=== PATIENT | female | born 1945 | race Caucasian/White ===

== ENCOUNTER 2016-11-22 19:51 | Inpatient (IN) ==
--- NOTE | 2016-11-22 20:17 | Emergency Department Report ---
Lower Extremity Injury HPI - General Stated Complaint: Sore toe Time Seen by Provider: 11/22/16 20:07 Source: patient Mode of arrival: ambulatory Limitations: no limitations - History of Present Illness HPI Narrative: 71yo woman presents to the ER for evaluation of her toe. Pt has had a wound on her right, second digit for over a week. Has seen at least two physicians for this, but was told to put cream on it and it would get better. Pt has an open, draining sore on the end of the toe. Has comorbid CAD and DM. Onset (ago): day(s) Injury: Right: toes Place: home Severity: severe Severity scale (1-10): 8 Relieving factors: nothing Exacerbating factors: weight bearing, movement Other symptoms: other (Chills) Treatments prior to arrival: bandage - Related Data Home Medications Medication Instructions Recorded Confirmed Allopurinol 100 mg PO DAILY #0 10/17/08 11/22/16 Furosemide [Lasix] 40 mg PO DAILY #0 10/17/08 11/22/16 Metoprolol Succinate 25 mg PO DAILY #0 10/17/08 11/22/16 Omeprazole 20 mg PO DAILY #0 10/17/08 11/22/16 Potassium Chloride [Klor-Con M20] 20 meq PO BID #0 10/17/08 11/22/16 Quetiapine Fumarate [Seroquel] 100 mg PO HS #0 10/17/08 11/22/16 Ropinirole [Requip] 1 mg PO BID #0 10/17/08 11/22/16 Atorvastatin Calcium [Lipitor] 20 mg PO HS #0 09/03/10 11/22/16 Gabapentin [Neurontin] 300 mg PO TID #0 09/03/10 11/22/16 Hydrocodone/Acetaminophen 1 - 2 tab PO Q8HR PRN #0 10/25/15 11/22/16 [Hydrocodon-Acetaminophn 10-325] Warfarin Sodium 2 mg PO DAILY #90 tab 03/24/16 11/22/16 Tizanidine HCl 2 mg PO DAILY #0 03/25/16 11/22/16 Albuterol Neb (0.083%) [Proventil 2.5 mg AEROSOL Q6HR PRN 11/22/16 11/22/16 Neb (0.083%)] Desvenlafaxine Sr [Pristiq] 50 mg PO DAILY 11/22/16 11/22/16 Insulin Aspart [NovoLOG] 12 unit SQ TIDWM 11/22/16 11/22/16 Previous Rx's Medication Instructions Recorded Insulin Detemir [Levemir] 25 unit SQ HS #30 11/01/15 Allergies Allergy/AdvReac Type Severity Reaction Status Date / Time codeine Allergy Unknown RASH Verified 11/22/16 20:29 prochlorperazine Allergy Unknown Verified 11/22/16 20:29 Sulfa (Sulfonamide Allergy Unknown Verified 11/22/16 20:29 Antibiotics) Review of Systems All systems: reviewed and negative except as stated Musculoskeletal: Reports: as per HPI Integumentary: Reports: as per HPI, lesions, swelling, wounds PFSH Medical History Updates: COPD. Gout. HL. Depr. CHF. Diabetic peripheral neuropathy. DM. Tinea cruris. GERD. Hypokalemia. Insomnia. Arrhythmia. RLS Physical Exam - Limitations Limitations: no limitations - General General appearance: alert, in no apparent distress, obese - Normal Exams: Head:: Normocephalic without trauma Eyes:: Pupils are PERRLA w/ EOMI, No scleral icterus, irritation, or foreign bodies noted ENMT:: No facial trauma, nasal exudates, pharyngeal erythema, or exudates are noted Neck:: Full range of motion, without adenopathy Chest/Respirations:: Clear all miranda, with good airflow, and symmetry bilaterally Abdomen:: Bowel sounds positive, soft, non-tender, non-distended, no hepatosplenomegaly, masses or bruits noted Lymphatic:: No lymphadenopathy, or lymphedema noted Musculoskeletal:: No tenderness, or deformity noted, good range of motion, all extremities Neurological:: Patient is alert, and oriented, cranial nerves, motor/sensory/ cerebellar, exams w/o gross deficits, to observation Psychiatric:: Patient exhibits, appropriate attention, emotion and affect - Skin Skin exam: Present: warm, dry, pallor (Ulcerated, draining, mottled, pallorous skin of 2nd digit on right up to MTP joint.), mottled. Absent: rash Course - Consultations Consultation #1: Douglas Telemed: Time: 22:00 Vital Signs Temperature 99.6 F 11/22/16 19:58 Pulse Rate 101 H 11/22/16 19:58 Respiratory Rate 22 11/22/16 19:58 Blood Pressure 180/77 H 11/22/16 19:58 Pulse Oximetry 98 11/22/16 19:58 Temperature 99.6 F 11/22/16 19:58 Pulse Rate 101 H 11/22/16 19:58 Respiratory Rate 22 11/22/16 19:58 Blood Pressure 180/77 H 11/22/16 19:58 Pulse Oximetry 98 11/22/16 19:58 Extremity Injury, Lower - Differential Diagnosis Likely: fracture of toe (Gangrene, Sepsis, Diabetic ulcer) - Medical Records Attestation: I reviewed the patient's medical records. - Lab Data Attestation: I reviewed the patient's lab results. Result diagrams: 11/22/16 20:31 11/22/16 20:31 Lab Results 11/22/16 11/22/16 11/22/16 Range/Units 20:31 20:31 20:31 WBC 14.1 H (4.5-11.0) T/MM3 RBC 4.38 (4.00-5.20) M/MM3 Hgb 11.4 L (12-16) GM/DL Hct 38.1 (36-46) % MCV 87.0 (80-100) UM3 MCH 26.0 (26-34) UUG MCHC 29.9 L (31-37) GM/DL RDW Std Deviation 43.9 (36.9-50.2) FL Plt Count 210 (130-400) T/MM3 MPV 10.6 (9.4-12.4) UM3 Immature Gran % (Auto) Not performed Neut % (Auto) Not performed Lymph % (Auto) Not performed Crook % (Auto) Not performed Eos % (Auto) Not performed Baso % (Auto) Not performed Neut # Not performed Lymph # Not performed Crook # Not performed Eos # Not performed Baso # Not performed Abs Immat Gran (auto) Not performed Neutrophils % (Manual) 85.0 H (33-66) % Lymphocytes % (Manual) 11.0 L (23-45) % Monocytes % (Manual) 3.0 (0-9.0) % Eosinophils % (Manual) 1.0 (0-4) % Neutrophils # (Manual) 12.0 H (1.8-7.7) T/MM3 Lymphocytes # (Manual) 1.6 (1-4.8) T/MM3 Monocytes # (Manual) 0.4 (0-0.8) T/MM3 Eosinophils # (Manual) 0.1 (0-0.5) T/MM3 RBC Morph Comment Normal Turbidity < 20 (0-20) Sodium 141 (134-144) MEQ/L Potassium 4.4 (3.6-5) MEQ/L Chloride 101 (98-107) MEQ/L Carbon Dioxide 26 (22-30) MEQ/L Anion Gap 14 (5-15) MEQ/L BUN 20.0 H (7-17) MG/DL Creatinine 1.5 H (0.7-1.2) MG/DL GFR Calculation 34 BUN/Creatinine Ratio 13 (6-26) RATIO Glucose 202 H (65-110) MG/DL Calculated Osmolality 280 (261-280) MOSM/KG Calcium 9.8 (8.4-10.2) MG/DL Icterus Index < 2 (0-7) Plasma Lactate 2.1 (0.6-2.2) MMOL/L Procalcitonin NG/ML Specimen Hemolysis < 15 (0-25) // Range/Units 20:31 WBC (4.5-11.0) T/MM3 RBC (4.00-5.20) M/MM3 Hgb (12-16) GM/DL Hct (36-46) % MCV (80-100) UM3 MCH (26-34) UUG MCHC (31-37) GM/DL RDW Std Deviation (36.9-50.2) FL Plt Count (130-400) T/MM3 MPV (9.4-12.4) UM3 Immature Gran % (Auto) Neut % (Auto) Lymph % (Auto) Crook % (Auto) Eos % (Auto) Baso % (Auto) Neut # Lymph # Crook # Eos # Baso # Abs Immat Gran (auto) Neutrophils % (Manual) (33-66) % Lymphocytes % (Manual) (23-45) % Monocytes % (Manual) (0-9.0) % Eosinophils % (Manual) (0-4) % Neutrophils # (Manual) (1.8-7.7) T/MM3 Lymphocytes # (Manual) (1-4.8) T/MM3 Monocytes # (Manual) (0-0.8) T/MM3 Eosinophils # (Manual) (0-0.5) T/MM3 RBC Morph Comment Turbidity (0-20) Sodium (134-144) MEQ/L Potassium (3.6-5) MEQ/L Chloride (98-107) MEQ/L Carbon Dioxide (22-30) MEQ/L Anion Gap (5-15) MEQ/L BUN (7-17) MG/DL Creatinine (0.7-1.2) MG/DL GFR Calculation BUN/Creatinine Ratio (6-26) RATIO Glucose (65-110) MG/DL Calculated Osmolality (261-280) MOSM/KG Calcium (8.4-10.2) MG/DL Icterus Index (0-7) Plasma Lactate (0.6-2.2) MMOL/L Procalcitonin 0.07 NG/ML Specimen Hemolysis (0-25) - Radiology Data Attestation: I reviewed the patient's radiology results. Foot: Cortical erosion of distal phalanx on 2nd digit. Significant soft-tissue swelling. Disposition Clinical Impression: Osteomyelitis Qualifiers: Osteomyelitis type: unspecified type Osteomyelitis location: foot Laterality: right Qualified Code(s): M86.9 - Osteomyelitis, unspecified [place]: 02 [place] [facility] Prescriptions: No Action Furosemide [Lasix] 40 mg PO DAILY #0 Quetiapine Fumarate [Seroquel] 100 mg PO HS #0 Allopurinol 100 mg PO DAILY #0 Omeprazole 20 mg PO DAILY #0 Potassium Chloride [Klor-Con M20] 20 meq PO BID #0 Atorvastatin Calcium [Lipitor] 20 mg PO HS #0 Gabapentin [Neurontin] 300 mg PO TID #0 Hydrocodone/Acetaminophen [Hydrocodon-Acetaminophn 10-325] 1 - 2 tab PO Q8HR PRN #0 PRN Reason: Pain Insulin Detemir [Levemir] 25 unit SQ HS #30 Tizanidine HCl 2 mg PO DAILY #0 Desvenlafaxine Sr [Pristiq] 50 mg PO DAILY Albuterol Neb (0.083%) [Proventil Neb (0.083%)] 2.5 mg AEROSOL Q6HR PRN PRN Reason: Shortness Of Air Insulin Aspart [NovoLOG] 12 unit SQ TIDWM Ropinirole [Requip] 1 mg PO BID #0 Metoprolol Succinate 25 mg PO DAILY #0 Warfarin Sodium 2 mg PO DAILY #90 tab Referrals: Oskar Rosenthal MD [Family Provider] - Time of Disposition: 22:06 - Seen By: physician
[2016-11-22] MEDS ORDERED: CEFTRIAXONE (ER USE ONLY) 1 GM in NS 100 ML IV ONE (20:21)
[2016-11-22] MEDS: SALINE FLUSH 10ml SYRINGE IVF PRN (20:38)
[2016-11-22] MEDS ORDERED: PIPERACILLIN/TAZOBACTAM 3.375 GM in NS 100 ML IV SCH (22:30)
--- NOTE | 2016-11-22 23:22 | History & Physical Report ---
History of Present Illness Date: 11/22/16 Chief complaint: right foot pain and swelling HPI: This is a 71 y/o female with a history of DM2 who has chronic edema to both of her legs/feet. The pateint had increased swelling to her right foot and specifically her right 2nd toe. She saw a stores despatch hand 2 weeks ago that recommended a "cream"' which she couldn't afford. [facility] Medical History Updates: COPD. Gout. HL. Depr. CHF. Diabetic peripheral neuropathy. DM. Tinea cruris. GERD. Hypokalemia. Insomnia. Arrhythmia. RLS Medications Home Medications Medication Instructions Recorded Confirmed Type Allopurinol 100 mg PO DAILY #0 10/17/08 11/22/16 History Furosemide [Lasix] 40 mg PO DAILY #0 10/17/08 11/22/16 History Metoprolol Succinate 25 mg PO DAILY #0 10/17/08 11/22/16 History Omeprazole 20 mg PO DAILY #0 10/17/08 11/22/16 History Potassium Chloride [Klor-Con M20] 20 meq PO BID #0 10/17/08 11/22/16 History Quetiapine Fumarate [Seroquel] 100 mg PO HS #0 10/17/08 11/22/16 History Ropinirole [Requip] 1 mg PO BID #0 10/17/08 11/22/16 History Atorvastatin Calcium [Lipitor] 20 mg PO HS #0 09/03/10 11/22/16 History Gabapentin [Neurontin] 300 mg PO TID #0 09/03/10 11/22/16 History Hydrocodone/Acetaminophen 1 - 2 tab PO Q8HR PRN #0 10/25/15 11/22/16 History [Hydrocodon-Acetaminophn 10-325] Warfarin Sodium 2 mg PO DAILY #90 tab 03/24/16 11/22/16 History Tizanidine HCl 2 mg PO DAILY #0 03/25/16 11/22/16 History Albuterol Neb (0.083%) [Proventil 2.5 mg AEROSOL Q6HR PRN 11/22/16 11/22/16 History Neb (0.083%)] Desvenlafaxine Sr [Pristiq] 50 mg PO DAILY 11/22/16 11/22/16 History Insulin Aspart [NovoLOG] 12 unit SQ TIDWM 11/22/16 11/22/16 History Allergies Allergy/AdvReac Type Severity Reaction Status Date / Time codeine Allergy Unknown RASH Verified 11/22/16 20:29 prochlorperazine Allergy Unknown Verified 11/22/16 20:29 Sulfa (Sulfonamide Allergy Unknown Verified 11/22/16 20:29 Antibiotics) Exam Vital Signs: Temperature 99.6 F 11/22/16 19:58 Pulse Rate 101 H 11/22/16 19:58 Respiratory Rate 22 11/22/16 19:58 Blood Pressure 180/77 H 11/22/16 19:58 Pulse Oximetry 98 11/22/16 19:58 Height: 1.7 m Weight: 128.8 kg Results - Labs CBC & Chem 7: 11/22/16 20:31 11/22/16 20:31 Hospital Course Summary Disclaimer: The visit summary below is not to be considered part of the above Progress Note.
[2016-11-22] MEDS ORDERED: NS FLUSH BAG 500ml IV PRN (23:26)
[2016-11-22] MEDS ORDERED: HYDROCODONE/APAP 5mg/325mg TABLET PO PRN (23:26)
[2016-11-22] MEDS ORDERED: ONDANSETRON 4 MG/2 ML INJECTION IVP PRN (23:26)
--- NOTE | 2016-11-22 23:30 | History & Physical Report ---
<Braden Carrera Alessandro - Last Filed: 11/22/16 23:27> History of Present Illness Date: 11/22/16 Chief complaint: right foot pain HPI: This is a 71 y/o female with a history of DM2 who has chronic edema to both of her legs/feet. The patient had increased swelling to her right foot and specifically her right 2nd toe. She saw a inside sales territory manager 2 weeks ago that recommended a "cream"' which she couldn't afford. Over the past 2 days increased pain and swelling to this foot and specifically the 2nd toe. The patient developed fever, chills and sweats with nausea and vomiting. The patient presents to the ED today and xray and exam would support probable osteomyelitis of this toe. The pateint meets sepsis criteria. The patient will be admitted for a polymicrobial infection of this toe and probable surgical debridement and most likely amputation of toe Review of Systems Review of systems: no headache, no change in vision, no neck or jaw pain, no chest pain, occasional cough, no congestion, no heart palpations, mild nausea and occasional emesis, no abdomen pain, no change in BM, no urinary symptoms, chronic swelling of both lower legs but worse right sided as noted above no focal neuro complaints. 12 point ROS otherwise negative. PFSH Medical History Updates: COPD. Gout. HL. Depr. CHF. Diabetic peripheral neuropathy. DM. Tinea cruris. GERD. Hypokalemia. Insomnia. Arrhythmia. RLS Surgical History: cholecystectomy, tubal ligation, lumpectomy, herniorrhaghy Family History: unkown as adopted - Social History Smoking status: Former smoker Substance use type: does not use Alcohol intake frequency: does not drink Current occupational status: disabled Current residence: Apartment/Private Home Medications Home Medications Medication Instructions Recorded Confirmed Type Allopurinol 100 mg PO DAILY #0 10/17/08 11/22/16 History Furosemide [Lasix] 40 mg PO DAILY #0 10/17/08 11/22/16 History Metoprolol Succinate 25 mg PO DAILY #0 10/17/08 11/22/16 History Omeprazole 20 mg PO DAILY #0 10/17/08 11/22/16 History Potassium Chloride [Klor-Con M20] 20 meq PO BID #0 10/17/08 11/22/16 History Quetiapine Fumarate [Seroquel] 100 mg PO HS #0 10/17/08 11/22/16 History Ropinirole [Requip] 1 mg PO BID #0 10/17/08 11/22/16 History Atorvastatin Calcium [Lipitor] 20 mg PO HS #0 09/03/10 11/22/16 History Gabapentin [Neurontin] 300 mg PO TID #0 09/03/10 11/22/16 History Hydrocodone/Acetaminophen 1 - 2 tab PO Q8HR PRN #0 10/25/15 11/22/16 History [Hydrocodon-Acetaminophn 10-325] Warfarin Sodium 2 mg PO DAILY #90 tab 03/24/16 11/22/16 History Tizanidine HCl 2 mg PO DAILY #0 03/25/16 11/22/16 History Albuterol Neb (0.083%) [Proventil 2.5 mg AEROSOL Q6HR PRN 11/22/16 11/22/16 History Neb (0.083%)] Desvenlafaxine Sr [Pristiq] 50 mg PO DAILY 11/22/16 11/22/16 History Insulin Aspart [NovoLOG] 12 unit SQ TIDWM 11/22/16 11/22/16 History Allergies Allergy/AdvReac Type Severity Reaction Status Date / Time codeine Allergy Unknown RASH Verified 11/22/16 20:29 prochlorperazine Allergy Unknown Verified 11/22/16 20:29 Sulfa (Sulfonamide Allergy Unknown Verified 11/22/16 20:29 Antibiotics) Exam Vital Signs: Temperature 99.6 F 11/22/16 19:58 Pulse Rate 101 H 11/22/16 19:58 Respiratory Rate 22 11/22/16 19:58 Blood Pressure 180/77 H 11/22/16 19:58 Pulse Oximetry 98 11/22/16 19:58 Telemetry Rhythm: Sinus Rhythm Height: 1.7 m Weight: 128.8 kg Comments: well developed, well nourished female obese appears mild distress - Constitutional Present: mild distress, morbidly obese, cooperative - Routine HEENT Exam Head: Present: normocephalic, atraumatic, cushingoid faces Eye: Present: EOMI, conjunctivae pink ENT: Present: mucous membranes dry - Routine Neck Exam Present: supple, full ROM - Routine Respiratory Exam Present: CTA bilaterally - Routine Cardiovascular Exam Present: RRR - Routine Abdominal Exam Present: soft, tenderness - Routine Back/Spine/Pelvis Exam Back/Spine: Present: full ROM - Routine Skin Exam Present: intact Comments: right second toe has ecchymosis to tip with escar and sig erythema prpoximal to this, rom limited due to swelling, mild tender, - Routine Neurological Exam Present: alert, oriented X3 - Routine Psychiatric Exam Present: normal affect Results - Labs CBC & Chem 7: 11/22/16 20:31 11/22/16 20:31 Labs: reviewd and consistent with ongoing infecton - Imaging and Cardiology foot Additional comments: demineralization and probable osteo of 2nd toe distal phalynx Assessment and Plan (1) Osteomyelitis of toe of right foot Current visit: Yes Status: Acute 11/22/16 23:35 npo, surgical consult in am. zosyn, and henryo, pharmacy to dose, secondary to diabetic foot ulcer. (2) Sepsis Current visit: Yes Status: Acute 11/22/16 23:36 tachycardia, fever, leukocytosis, fluids, not severe sepsis, repeat sepsis markers in the am (3) CKD (chronic kidney disease) stage 3, GFR 30-59 ml/min Current visit: Yes Status: Acute 11/22/16 23:37 with diabetes must be careful regarding renal toxic meds and hydration status. pharmacy to assist with dosing, ivf, repeat bmp in am. (4) DM type 2 (diabetes mellitus, type 2) Current visit: Yes Status: Acute 11/22/16 23:37 correctional plan, hold all other agents as npo (5) HTN (hypertension) Current visit: Yes Status: Acute 11/22/16 23:38 hold agents until confirmed that blood pressure adequately tolerate infected state, hold diuretics anyway DVT Prophylaxis: SCD's Resuscitation Status: Full Code Hospital Course Summary Disclaimer: The visit summary below is not to be considered part of the above Progress Note. <Romi Parks - Last Filed: 11/23/16 11:04> History of Present Illness Date: 11/23/16 [facility] Patient Stated Medical History Cerebrovascular Accident Yes: 2006? Syncope Yes Dental Problems Yes Hypertension Yes Asthma Yes Chronic Obstructive Pulmonary Yes Disease (COPD) Pulmonary Embolism Yes Sleep Apnea Yes Diabetes Mellitus Type 2 Yes Gastroesophageal Reflux Yes Disease Hepatitis Yes: C Hx Incontinence Yes Hx Renal Disease Yes: stage 3 Clotting Problems Yes Osteoarthritis Yes Cellulitis Yes Depression Yes Exam Vital Signs: Temperature 97.7 F 11/23/16 07:32 Pulse Rate 72 11/23/16 09:26 Respiratory Rate 20 11/23/16 08:09 Blood Pressure 113/48 11/23/16 09:26 Pulse Oximetry 91 11/23/16 08:09 Oxygen Delivery Method Room Air Height: 1.7 m Weight: 130.6 kg Results - Labs CBC & Chem 7: 11/23/16 01:45 11/23/16 01:45 Microbiology Results: Microbiology 11/23/16 08:04 Toe,Second Right Superficial Wound Culture - Preliminary Culture Initiated - Results Pending Assessment and Plan (1) Osteomyelitis of toe of right foot Current visit: Yes Status: Acute (2) Severe sepsis Current visit: Yes Status: Acute (3) CKD (chronic kidney disease) stage 3, GFR 30-59 ml/min Current visit: Yes Status: Acute (4) DM type 2 (diabetes mellitus, type 2) Current visit: Yes Status: Acute (5) HTN (hypertension) Current visit: Yes Status: Acute Assessment and Plan: Dr. Carrera's note reviewed. Mrs. Flores interviewed and examined. CC: Foot pain, fever/chills HPI: Mrs. Flores is 71-year-old diabetic female with ulceration on the bottom/ tip of her second toes of both feet for several months. She been seeing a inside sales territory manager for some time and reports that the left foot has improved but the right foot has progressively worsened with increased swelling over the past couple of weeks, increasing redness, and throbbing pain. Podiatry recommended that she use a cream on her toe 2 weeks ago but she couldn't afford the medication. Over the past 2 days the patient developed significant increase in pain and swelling in this second right toe followed by onset of fever, chills, and sweats on the date of admission. There was accompanied nausea and vomiting. She presented to the emergency room her temperature was elevated at 99.6 and increased 100.6 shortly after arrival. White count was 14.1 and x-rays compatible with osteomyelitis involving the proximal phalanx of the right second toe. Broad-spectrum antibiotics were initiated and the patient was admitted for further management and surgical consultation. PH/SH/FH: agree with that recorded above by Dr. Carrera; in addition patient has a history of breast cancer and has had bilateral mastectomies; check pulmonary emboli in October 2015, history hepatitis C successfully treated/cured, CK D-3, fibromyalgia, ventral hernia repair, bilateral total knee arthroplasties, and left shoulder/clavicle surgery in 2010. Cardiac catheterization in March 2016 demonstrated ejection fraction of 65% and single vessel LAD disease with 30 % stenosis. The patient's primary care physician is Dr. Rosenthal, she is a full code, and has 3 children who should act as alternate decision makers if needed. ROS: 10 point review as previously described by Dr. Carrera with patient adding that she's had several falls over the past year due to lightheadedness when she turns suddenly. EXAM: General-MAXIMUM TEMPERATURE 101, HR 72-105, RR 14-24, BP 113/48. NAD, alert, fluent speech HEENT-PERRL, EOMI without nystagmus, conjunctiva clear, sclera anicteric, conjugate gaze, facial structures symmetric, oropharynx clear, neck supple and without adenopathy Lungs-respirations nonlabored, good airflow, breath sounds clear Cardiac-regular rhythm with occasional ectopic beats, S1-S2 Abd-obese, soft, nontender, bowel sounds present Ext-+2 edema RLE, +1 edema LLE Musculoskeletal-marked edema second phalanx right foot with discoloration of the distal toe consistent with necrotic tissue, 6-7 mm ulceration present at the distal aspect with foul-smelling blood-tinged drainage. Skin-without generalized rash, stasis changes present bilateral lower extremities Neuro-sensation is grossly intact bilateral lower extremities and upper extremities, motor tone/power normal, no tremor, cranial nerves 3-12 intact Psych-calm, cooperative DATA: White count 14.8 with 87 neutrophils, 2 bands this morning, hemoglobin 9.8, creatinine 1.5 (baseline 0.8-1.0), lactic acid initially 2.1 dropping to 0.8, procalcitonin 0.07 X-ray of the right foot reviewed by myself demonstrating changes consistent with osteomyelitis distal phalanx right second toe and a subacute fracture at the proximal phalanx fifth toe. A/P: Osteomyelitis right second toe Cellulitis right toe/foot, possible abscess right second toe Severe sepsis Diabetes mellitus, type II, with diabetic neuropathy and nephropathy, chronic insulin use. Normocytic anemia CKD-stage III PE 09/25 History of breast cancer Hypertension Restless leg syndrome Continue broad-spectrum antibiotics with vancomycin and Zosyn due to diabetic foot infection with osteomyelitis. Surgical consultation initiated, call placed to Dr. Morales regarding surgical plans. High likelihood that second toe will require amputation. Baseline CRP to be obtained in the morning, A1c to be rechecked-last A1c 8.2 in June. Continue basal insulin with corrective scale insulin while nothing by mouth. Continue IV/PO narcotics for pain and home meds as appropriate. Anticipate greater than 2 days hospitalization due to need for IV antibiotics and supportive care. Patient will return to the care of Dr. Galo flowers. Outpatient records reviewed, x-rays reviewed, laboratory data reviewed and compared to prior hospitalizations. Sepsis Assessment - Evaluation Possible source: bone/joint, skin/soft tissue Confirmed Suspected Infection: Yes SIRS Criteria: temperature > or equal to 100.4, pulse > or equal to 90 beats/ minute, WBC > or equal to 12,000, RR > or equal to 20 Severe Sepsis: SpO2 <90% or ventilated, lactate > or equal to 2.0 mg/dl Hospital Course Summary Disclaimer: The visit summary below is not to be considered part of the above Progress Note. Hospital Course: 11/23/16 11:03 Patient admitted with severe sepsis and osteomyelitis of the second right toe with cellulitis. Continue broad-spectrum antibiotics with vancomycin and Zosyn due to diabetic foot infection. Surgical consultation initiated, call placed to Dr. Morales regarding surgical plans. High likelihood that second toe will require amputation. Baseline CRP to be obtained in the morning, A1c to be rechecked-last A1c 8.2 in June. Continue basal insulin with corrective scale insulin while nothing by mouth. Continue IV/PO narcotics for pain and home meds as appropriate. Anticipate greater than 2 days hospitalization due to need for IV antibiotics and supportive care. Patient will return to care of Dr. Galo flowers.
[2016-11-23] MEDS ORDERED: FALL RISK - PHARMACY CONSULT MC PRN (00:01)
[2016-11-23] MEDS: PIPERACILLIN/TAZOBACTAM 3.375 GM in NS 100 ML IV SCH ×3 (05:19→18:08)
[2016-11-23] MEDS: INSULIN REGULAR, HUMAN 100 UNIT/ML INJECTION SQ PRN ×2 (05:28→13:52)
--- NOTE | 2016-11-23 07:57 | General Surgery Consult Note ---
Consult date: 11/23/16 Attending Physician: Romi Parks MD Reason for consult: wound care (osteomyelitis of right 2nd toe) History of present illness: Per Dr. Morales [facility] Patient Stated Medical History Cerebrovascular Accident Yes: 2006? Syncope Yes Hypertension Yes Asthma Yes Chronic Obstructive Pulmonary Yes Disease (COPD) HI 2nd to PE October 2015 Pulmonary Embolism 2015 Yes Sleep Apnea Yes Diabetes Mellitus Type 2 Yes Gastroesophageal Reflux Yes Disease Hepatitis C Yes: C Hx Incontinence Yes Hx Renal Disease Yes: stage 3 Osteoarthritis Yes Cellulitis Yes Depression Yes Fibromyalgia Restless less syndrome Breast cancer Migraines Neuropathy Morbid Obesity Chronic venous insufficiency Gout Dental Problems Yes Surgical History: cholecystectomy, tubal ligation, breast lumpectomy cancer, ventral herniorrhaghy, bilateral total knee replacemet Dr. Leos, Left shoulder anterior acromioplasty and open clavicular resection 09-04-10, normal colonoscopy 06-01-2008 Dr. Morales, EGD Irregular GE junction 06-01-2008 Dr. Morales, HEART CATH EF 65% and mild CAD in LAD 03-25-16 Dr. Conn Family History: adopted - Social History Smoking status: Former smoker Current residence: Apartment/Private Home Medications Home Medications Medication Instructions Recorded Confirmed Type Allopurinol 100 mg PO DAILY #0 10/17/08 11/22/16 History Furosemide [Lasix] 40 mg PO DAILY #0 10/17/08 11/22/16 History Metoprolol Succinate 25 mg PO DAILY #0 10/17/08 11/22/16 History Omeprazole 20 mg PO DAILY #0 10/17/08 11/22/16 History Potassium Chloride [Klor-Con M20] 20 meq PO BID #0 10/17/08 11/22/16 History Quetiapine Fumarate [Seroquel] 100 mg PO HS #0 10/17/08 11/22/16 History Ropinirole [Requip] 1 mg PO BID #0 10/17/08 11/22/16 History Atorvastatin Calcium [Lipitor] 20 mg PO HS #0 09/03/10 11/22/16 History Gabapentin [Neurontin] 300 mg PO TID #0 09/03/10 11/22/16 History Hydrocodone/Acetaminophen 1 - 2 tab PO Q8HR PRN #0 10/25/15 11/22/16 History [Hydrocodon-Acetaminophn 10-325] Warfarin Sodium 2 mg PO DAILY #90 tab 03/24/16 11/22/16 History Tizanidine HCl 2 mg PO DAILY #0 03/25/16 11/22/16 History Albuterol Neb (0.083%) [Proventil 2.5 mg AEROSOL Q6HR PRN 11/22/16 11/22/16 History Neb (0.083%)] Desvenlafaxine Sr [Pristiq] 50 mg PO DAILY 11/22/16 11/22/16 History Insulin Aspart [NovoLOG] 12 unit SQ TIDWM 11/22/16 11/22/16 History Allergies Allergy/AdvReac Type Severity Reaction Status Date / Time codeine Allergy Unknown RASH Verified 11/22/16 20:29 prochlorperazine Allergy Unknown Verified 11/22/16 20:29 Sulfa (Sulfonamide Allergy Unknown Verified 11/22/16 20:29 Antibiotics) Review of Systems 10-point ROS: negative except for HPI and the following: - General General: Present: fever, chills - Respiratory Respiratory: Present: sleep apnea - Gastrointestinal Gastrointestinal: Present: diarrhea (occasional fecal urgency) - Genitourinary Genitourinary: Present: other (stress/urge incontinence) - Musculoskeletal Musculoskeletal: Present: joint pain (uses a walker) - Neurological Neurological: Present: numbness (diabetic neuropathy) - Psychiatric Psychiatric: Present: depression - Endocrine Endocrine: Present: diabetes - Hematologic/Lymphatic Hematologic/Lymphatic: Present: easy bruising, history of blood clots/DVT/PE ( PE in fall 2015), use of blood thinners - Vital Signs Last Vital Signs Temp 97.7 F 11/23/16 07:32 Pulse 74 11/23/16 07:32 Resp 16 11/23/16 07:32 BP 107/48 11/23/16 07:32 Pulse Ox 91 11/23/16 07:32 - Laboratory Result Diagrams: 11/23/16 01:45 11/23/16 01:45 General Surgery Results - Results Labs: 11/23/16 01:45 11/23/16 01:45 Hospital Course Summary Disclaimer: The visit summary below is not to be considered part of the above Progress Note. Sepsis Assessment - Evaluation Sepsis screening result: No Definite Risk
--- NOTE | 2016-11-23 08:00 | XRay Report ---
Indication: Ulcer with drainage and dusky color PROCEDURE: XR foot RT min 3V: Encounter: Initial Comparison: None Findings: There is a subacute minimally impacted fracture of the fifth toe proximal phalangeal base. There is evidence of osteolysis involving the second toe distal phalanx at the site of soft tissue ulceration. There is severe soft tissue swelling in this location as well. Impression: Findings of osteomyelitis in the second toe distal phalanx. Subacute fracture of the fifth toe proximal phalanx. .
[2016-11-23] MEDS: HYDROMORPHONE 2 MG/ML INJECTION IVP PRN ×5 (08:43→22:54)
[2016-11-23] MEDS: ROPINIROLE 1 MG TABLET PO SCH ×2 (10:10→22:03)
[2016-11-23] MEDS: ALLOPURINOL 100 MG TABLET PO SCH (10:10)
[2016-11-23] MEDS: ALBUTEROL 2.5mg/3ml (0.083%) NEB AEROSOL PRN ×2 (10:24→20:40)
[2016-11-23] MEDS: BUDESONIDE INH.SOLN 0.5mg/2ml NEB AEROSOL SCH ×2 (10:24→20:40)
--- NOTE | 2016-11-23 10:31 | Wound Care Progress Note ---
Wound Management - Patient Status Premedicated Prior to Dressing Change: No - Wound Right Toe - 2nd Digit Wound Type: Diabetic Foot Ulcer Wound Present on Admission?: Yes Length: 1 Width: 1.2 Depth: 0.1 Wound Bed Appearance: [place], [place], Eschar, Necrotic [place] Wound Appearance: Purple Tunneling: No Undermining: No Drainage Description: Purulent (culture obtained) Drainage Amount: Moderate Drainage Odor: Slight Odor Dressing Status: Changed Irrigant Solution: Saline Irrigant Primary Dressing: Gauze Roll/Wrap (Gauze roll used at this time until Dr Morales comes to see pt.) Microbiology: Microbiology 11/23/16 08:04 Toe,Second Right Superficial Wound Culture - Preliminary Culture Initiated - Results Pending
[2016-11-23] MEDS: NS 1,000 ML IV SCH ×3 (16:07→19:41)
[2016-11-23] MEDS: GABAPENTIN 300 MG CAPSULE PO SCH ×2 (16:13→22:03)
--- NOTE | 2016-11-23 16:19 | Consultation ---
DATE OF CONSULTATION 11/23/2016 FINDINGS Mrs. Flores is a 71-year-old female whom I was asked to see today as a result of a right diabetic foot ulcer. Patient states that she has been experiencing problems with "swelling" involving her lower extremities, right worse than left. The patient states that about three months ago, she began to notice a wound developing upon her right great toe. She did see a director of workforce development recently who had recommended that she apply some topical ointment to the area of concern. Patient states over the last couple of days, she has developed increasing pain and swelling involving her right foot and specifically her right second toe. The patient states that she began to notice a component of some fever, chills, sweats as well as a component of nausea and vomiting, therefore presented to our emergency room facility for further care. While in the ER department, she did undergo a plain x-ray of the right foot which revealed evidence for osteomyelitis involving her right second toe. The patient was subsequently admitted to our hospital for further care. PAST MEDICAL HISTORY Performed by my nurse practitioner, Jose Eisenberg. PAST SURGICAL HISTORY Performed by my nurse practitionerJose. MEDICATIONS Performed by my nurse practitionerJose. ALLERGIES Performed by my nurse practitionerJose. SOCIAL HISTORY Performed by my nurse practitionerJose. FAMILY HISTORY Performed by my nurse practitionerJose. REVIEW OF SYSTEMS Performed by my nurse practitionerJose. PHYSICAL EXAMINATION General: Mrs. Flores is a 71-year-old female who did not appear to be in acute distress. She was sitting upright and quite conversant at the bedside. VITALS: Afebrile. Normotensive. Current vitals include temperature 97.7, pulse 72, respirations 14, blood pressure 113/48, SaO2 94% on room air. HEENT: Normocephalic. Pupils are equally round and react to light and accommodation. CHEST: Clear to auscultation bilaterally. HEART: Regular rate and rhythm. Normal S1, S2, without gallops, murmurs or clicks. ABDOMEN: Palpation of the abdomen reveals it to be soft and nontender. I do not appreciate any evidence for hepatosplenomegaly nor abnormal masses. EXTREMITIES: Attention was focused to the area of concern involving her right foot. Patient does have an area of necrosis involving the tip of her right second toe. The toe itself is significantly more edematous than the adjacent toes. The patient does have a component of pretibial edema as well. LABORATORY/RADIOGRAPHIC EVALUATION The patient did undergo a plain x-ray as stated above that revealed osteomyelitis involving the right second toe. From a lab standpoint, she did have a leukocytosis with a white count of 14.8. Hemoglobin was slightly down at 9.7 today. CMP was obtained and found to be overall within normal limits. Creatinine is elevated at 1.4. BUN is elevated at 21.0. Glucose was elevated at 210. ASSESSMENT 71-year-old female with Rodgers grade 3 right diabetic foot ulcer involving right second toe. PLAN Excisional surgical debridement, probable right second toe amputation. At the bedside I did go ahead and utilize a surgical curette and remove the area of necrosis. There was a moderate amount of purulence involving the midportion of the second toe. One could see the distal phalanx within the wound once the area of necrosis had been debrided. The visible portion of the distal phalanx contained obvious osteomyelitis. I informed the patient that it would be my recommendation that later today we bring her to the operative suite where a more formal debridement and possible right second toe amputation could be carried out pending intraoperative findings. I did discuss with the patient what an excisional surgical debridement and possible right second toe amputation would entail and its associated risks which include, but are not exclusive of, bleeding and/or infection. The patient understood and wished to proceed as stated above. I agree with current management of this patient. She is on broad-spectrum antibiotics consisting of Zosyn and vancomycin. MILO
--- NOTE | 2016-11-23 17:58 | Anesthesia Preoperative Report ---
Anesthesia Preoperative Record - Date and Time Date: 11/23/16 Preoperative Diagnosis: Osteo Right 2nd Toe Proposed Procedure: right 2nd toe I&D possible amputation NPO Since Date: 11/23/16 NPO Since Time: 17:56 Allergies/Adverse Reactions: Allergies Allergy/AdvReac Type Severity Reaction Status Date / Time codeine Allergy Unknown RASH Verified 11/22/16 20:29 prochlorperazine Allergy Unknown Verified 11/22/16 20:29 Sulfa (Sulfonamide Allergy Unknown Verified 11/22/16 20:29 Antibiotics) - Vital Signs Vital Signs: Temperature 98.2 F 11/23/16 16:46 Pulse Rate 70 11/23/16 16:46 Respiratory Rate 16 11/23/16 16:46 Blood Pressure 142/64 H 11/23/16 16:46 Pulse Oximetry 95 11/23/16 16:46 Oxygen Delivery Method Nasal Cannula Oxygen Flow Rate 2 Height and Weight: Height 5 ft 7 in Weight 130.6 kg Body Mass Index 44.8 - Medications Inpatient Medications: Current Medications Acetaminophen/Hydrocodone Bitart (Earle 10/325) 1 - 2 tab PO Q8HR PRN PRN Reason: Pain Albuterol Sulfate (Proventil Neb (0.083%)) 2.5 mg AEROSOL Q4HR PRN Last Admin: 11/23/16 10:24 Dose: 2.5 mg Allopurinol (Zyloprim) 100 mg PO DAILY [facility] Last Admin: 11/23/16 10:10 Dose: Not Given Atorvastatin Calcium (Lipitor) 20 mg PO HS [facility] Budesonide (Pulmicort Inhalation) 0.5 mg AEROSOL RTBID [facility] Last Admin: 11/23/16 10:24 Dose: 0.5 mg Desvenlafaxine Succinate (Pristiq) 50 mg PO DAILY [facility] Gabapentin (Neurontin) 300 mg PO TID [facility] Last Admin: 11/23/16 16:13 Dose: Not Given Hydromorphone HCl (Dilaudid) 1 mg IVP Q2H PRN PRN Reason: Pain Last Admin: 11/23/16 16:12 Dose: 1 mg Sodium Chloride (Normal Saline) 1,000 mls @ 100 mls/hr IV .Q10H [facility] Last Admin: 11/23/16 16:07 Dose: 100 mls/hr Piperacillin Sod/Tazobactam (Sod 3.375 gm/ Sodium Chloride) 100 mls @ 200 mls/ hr IV Q6H [facility] Last Infusion: 11/23/16 14:06 Dose: Infused Vancomycin HCl 1,000 mg/ (Sodium Chloride) 250 mls @ 250 mls/hr IV Q12H [facility] Insulin Detemir (Levemir) 25 unit SQ HS [facility] Insulin Human Regular (Novolin R) 0 unit SQ SS PRN PRN Reason: Protocol Last Admin: 11/23/16 13:52 Dose: 1 unit Metoprolol Succinate (Toprol Xl) 25 mg PO DAILY [facility] Last Admin: 11/23/16 10:10 Dose: Not Given Ondansetron HCl (Zofran) 4 mg IVP Q6H PRN PRN Reason: Nausea &/or vomiting Last Admin: 11/22/16 23:30 Dose: 4 mg Quetiapine Fumarate (Seroquel) 100 mg PO HS [facility] Ropinirole HCl (Requip) 1 mg PO BID [facility] Last Admin: 11/23/16 10:10 Dose: Not Given Sodium Chloride (Iv Flush) 10 - 80 ml IVF PRN PRN PRN Reason: Flushing Last Admin: 11/22/16 20:38 Dose: 10 ml Sodium Chloride (Normal Saline) 500 ml IV PRN PRN Tizanidine HCl (Zanaflex) 2 mg PO DAILY [facility] Home Medications: Home Medications Medication Instructions Recorded Confirmed Type Allopurinol 100 mg PO DAILY #0 10/17/08 11/22/16 History Furosemide [Lasix] 40 mg PO DAILY #0 10/17/08 11/22/16 History Metoprolol Succinate 25 mg PO DAILY #0 10/17/08 11/22/16 History Omeprazole 20 mg PO DAILY #0 10/17/08 11/22/16 History Potassium Chloride [Klor-Con M20] 20 meq PO BID #0 10/17/08 11/22/16 History Quetiapine Fumarate [Seroquel] 100 mg PO HS #0 10/17/08 11/22/16 History Ropinirole [Requip] 1 mg PO BID #0 10/17/08 11/22/16 History Atorvastatin Calcium [Lipitor] 20 mg PO HS #0 09/03/10 11/22/16 History Gabapentin [Neurontin] 300 mg PO TID #0 09/03/10 11/22/16 History Hydrocodone/Acetaminophen 1 - 2 tab PO Q8HR PRN #0 10/25/15 11/22/16 History [Hydrocodon-Acetaminophn 10-325] Warfarin Sodium 2 mg PO DAILY #90 tab 03/24/16 11/22/16 History Tizanidine HCl 2 mg PO DAILY #0 03/25/16 11/22/16 History Albuterol Neb (0.083%) [Proventil 2.5 mg AEROSOL Q6HR PRN 11/22/16 11/22/16 History Neb (0.083%)] Desvenlafaxine Sr [Pristiq] 50 mg PO DAILY 11/22/16 11/22/16 History Insulin Aspart [NovoLOG] 12 unit SQ TIDWM 11/22/16 11/22/16 History Is Patient on Beta Kiana?: Yes - Medical History Respiratory: Reports: Chronic Obstructive Pulmonary Disease (COPD), Dyspnea, Pulmonary Embolism (hx) Cardiovascular: DENIES: Abnormal EKG, Angina, Arrhythmia, Congestive Heart Failure, Coronary Artery Disease, Heart Murmur, Hypertension, Hypotension, High Cholesterol, Myocardial Infarction, Rheumatic Fever, Valvular Heart Disease, Other (Recent Cath/stress test/echo with Dr. Conn. no negative results) Gastrointestional: Reports: Gastroesophageal Reflux Disease (moderate), Morbid Obesity Neuro/Musculoskeletal: Reports: Cerebrovascular Accident (minor right sided weakness and right facial droop) Renal/Endocrine: Reports: Diabetes Mellitus Type 1, Renal Failure (CKD stage 3) Other History: DENIES: Anesthesia Reactions, Now, Blood Transfusions, Chemotherapy , Cancer, Hemophilia, Malignant Hyperthermia, Sickle Cell Disease, Other - Surgical History HEENT Surgeries: Reports: Eye Surgery (cataracts), Oral Surgery (tooth removal for dentures) Respiratory Surgery/Treatments: Reports: CPAP Use GI Surgery/Treatments: Reports: Cholecystectomy, Hernia Repair, Colonoscopy Musculoskeletal Surgery/Tx: Reports: Total Knee Replacement Reproductive Surgery/Treatment: Reports: Lumpectomy, Tubal Ligation Anesthesia Reactions: None Hx Family Anesthesia Reaction: No History of Motion Sickness: No - Social History Smoking Status: Former smoker (quit 5 mos ago) Substance Use Type: does not use - Pertinent Findings Laboratory: CBC and BMP 11/23/16 01:45 11/23/16 01:45 BMP 11/23/16 01:45 Sodium 139 Potassium 4.8 Chloride 103 Carbon Dioxide 26 BUN 21.0 H Creatinine 1.4 H D Glucose 210 H Calcium 8.6 D Liver Function 11/23/16 Range/Units 01:45 Total Bilirubin 0.80 (0.20-1.30) MG/DL AST 18 (14-36) U/L ALT 31 (9-52) U/L Alkaline Phosphatase 118 (38-126) U/L Albumin 3.4 L (3.5-5.0) G/DL EKG Rhythm: Normal Sinus Rhythm - Physical Exam Respiratory Exam: Present: lungs clear, bilateral breath sounds equal Cardiovascular Exam: Present: regular rate and rhythm, no murmur - Airway Assessment Mallampati Score: II TMD: 3 Fingerbreadths Neck Extension: fair Teeth: upper dentures, lower dentures Overall Assessment: may be difficult mask vent - ASA ASA Score: 3, E - Plan Anesthesia: MAC - Discussion Discussion: Discussed risks/options/alternatives of anesthesia and questions answered. Patient consents. Nursing pain assessment noted. Present for Discussion: family member Attestation Statement: Prior to the delivery of any anesthetic medication, I examined the patient, developed the plan, obtained the patient's consent and discussed the risk and benefits of the procedure with the patient/guardian.
[2016-11-23] MEDS ORDERED: MIDAZOLAM 2mg/2ml INJECTION ONE (18:03)
[2016-11-23] MEDS ORDERED: FentaNYL 100 MCG/2 ML INJECTION ONE (18:14)
[2016-11-23] MEDS ORDERED: BUPIVACAINE 0.25%/EPI 1:200,000 30ml SDV INFIL ONE (18:21)
--- NOTE | 2016-11-23 18:44 | Anesthesia Postoperative Note ---
- Date and Time Date: 11/23/16 Time: 18:44 - Status Patient Participated in Evaluation: Patient Participated in Person Vital Signs: Temperature 98.2 F 11/23/16 16:46 Pulse Rate 70 11/23/16 16:46 Respiratory Rate 16 11/23/16 16:46 Blood Pressure 142/64 H 11/23/16 16:46 Pulse Oximetry 95 11/23/16 16:46 Oxygen Delivery Method Nasal Cannula Oxygen Flow Rate 2 Respiratory Function: Airway Patent Cardiovascular Function: Regular Pulse EKG Rhythm: Normal Sinus Rhythm Mental Status: Alert and Oriented Hydration: IV Infusing Complications During Recover: None Apparent - Follow-Up Instructions Instructions: Per Surgeon
--- NOTE | 2016-11-23 18:52 | General Surgery Procedure Note ---
Date of Procedure: 11/23/16 Surgeon: Andrew Postoperative Diagnosis: gangrene with osteomyelitis 2nd toe right foot Procedure: disarticulation amputation 2nd toe right foot Estimated Blood Loss: See Anesthesia Record.
[2016-11-23] MEDS ORDERED: INSULIN DETEMIR 100unit/ml INJECTION SQ SCH (22:00)
[2016-11-23] MEDS ORDERED: ATORVASTATIN 20 MG TABLET PO SCH (22:00)
[2016-11-23] MEDS ORDERED: QUETIAPINE 50 MG TABLET PO SCH (22:00)
[2016-11-23] MEDS: HYDROCODONE/APAP 10 MG/325 MG TABLET PO PRN (22:04)
[2016-11-24] MEDS: NS 1,000 ML IV SCH ×2 (02:33→16:30)
[2016-11-24] MEDS: HYDROMORPHONE 2 MG/ML INJECTION IVP PRN (02:43)
[2016-11-24] MEDS: PIPERACILLIN/TAZOBACTAM 3.375 GM in NS 100 ML IV SCH ×4 (02:44→19:45)
--- NOTE | 2016-11-24 08:12 | General Surgery Progress Note ---
Subjective Patient reports: no new complaints, still having pain (states the toe stump "throbs" when dependent, she was in the recliner but with feet on the floor this mornig. Foot rest raised before I left.), tolerating a regular diet - Vital Signs Last Vital Signs Temp 96.3 F L 11/24/16 07:35 Pulse 80 11/24/16 07:35 Resp 18 11/24/16 07:35 BP 162/69 H 11/24/16 07:35 Pulse Ox 94 11/24/16 07:38 - Laboratory Result Diagrams: 11/24/16 07:32 11/23/16 01:45 - Microbiogy Microbiology 11/23/16 08:04 Toe,Second Right Gram Stain - Final Gram positive and Gram negative. 11/23/16 08:04 Toe,Second Right Superficial Wound Culture - Preliminary Early growth - Normal Exam General: awake, oriented, no acute distress Cardiovascular: regular rhythm, regular rate Respiratory: no labored breathing Abdominal: incision(s) (2nd toe right foot stump dressing lifted up enough to see some dried blood on the inner most dressing, not soaking through. Sutures in tact. No erythema of foot.) Assessment and Plan (1) Osteomyelitis of toe of right foot Current Visit: Yes Status: Acute Assessment and plan: now post amputation (disarticulated) 2nd toe. Dressing with minimal dried blood. Continue IV ABX as ordered. Awaiting final micro results. Daily dressing changes with BENSON and gauze. Hospital Course Summary Disclaimer: The visit summary below is not to be considered part of the above Progress Note. Hospital Course: 11/23/16 11:03 Patient admitted with severe sepsis and osteomyelitis of the second right toe with cellulitis. Continue broad-spectrum antibiotics with vancomycin and Zosyn due to diabetic foot infection. Surgical consultation initiated, call placed to Dr. Morales regarding surgical plans. High likelihood that second toe will require amputation. Baseline CRP to be obtained in the morning, A1c to be rechecked-last A1c 8.2 in June. Continue basal insulin with corrective scale insulin while nothing by mouth. Continue IV/PO narcotics for pain and home meds as appropriate. Anticipate greater than 2 days hospitalization due to need for IV antibiotics and supportive care. Patient will return to care of Dr. Galo flowers. Sepsis Assessment - Evaluation Sepsis screening result: No Definite Risk
[2016-11-24] MEDS: HYDROCODONE/APAP 10 MG/325 MG TABLET PO PRN ×2 (08:32→22:23)
[2016-11-24] MEDS: ALLOPURINOL 100 MG TABLET PO SCH (08:32)
[2016-11-24] MEDS: Desvenlafaxine SR 50 MG TABLET PO SCH (08:32)
[2016-11-24] MEDS: ROPINIROLE 1 MG TABLET PO SCH ×2 (08:32→22:23)
[2016-11-24] MEDS: GABAPENTIN 300 MG CAPSULE PO SCH ×3 (08:33→22:22)
--- NOTE | 2016-11-24 08:34 | Operative Note ---
DATE OF PROCEDURE 11/23/2016 SURGEON Adrian Morales MD PREOPERATIVE DIAGNOSIS Rodgers grade 3 diabetic foot ulcer involving right second toe. POSTOPERATIVE DIAGNOSIS Rodgers grade 3 diabetic foot ulcer involving right second toe. PROCEDURE Right second toe amputation. ANESTHESIA TIVA/local BRIEF HISTORY/INDICATIONS Mrs. Flores is a 71-year-old diabetic female who has had an ulceration involving her right great toe over the course of the last several months. The patient recently began to develop some fever and chills and increasing redness and swelling involving her right foot, specifically her right second toe. The patient did undergo an x-ray through our ER department and was found to have osteomyelitis involving her right second toe. She did have a degree of leukocytosis upon laboratory evaluation. The patient was subsequently admitted to the hospital for further care. Upon examination, the patient was found to have necrosis involving the tip of her right second toe. This was debrided at the bedside earlier today and one could see that the distal phalanx was definitely involved with osteomyelitis. There was chris purulence also coming forth from the midportion of the right second toe. As a result of the above indications, I recommended to the patient that she undergo surgical debridement/ possible amputation of her right second toe. For completeness please refer to notes included in the patient's chart. DESCRIPTION OF PROCEDURE After informed consent was obtained, patient was brought to the operative suite and placed on the table in a supine fashion. Right foot was then prepped and draped in sterile fashion. Formal time-out was then completed. 0.25% Marcaine with epinephrine was injected circumferentially around the base of the right second toe. Hemostat was then placed within the open portion of the distal aspect of the wound and was able to be advanced proximally near its base. Chris purulent material began to come forth from the open portion of the wound. Given these findings, I felt it would be best to proceed with a second toe amputation instead of that of a debridement. A circular incision was then made upon the second toe, just distal to the base of the second toe. Dissection was then carried down to the underlying phalanx. Phalanx itself was then dissected off of the metatarsal head. Second toe was then completely amputated and passed off the table as a surgical specimen. There were no signs of infection involving the metatarsal head. The tissues at this location were without evidence for gross purulence or evidence for infection. I therefore elected to proceed with primary closure. The wound was irrigated. The deep tendinous structures and fascia were closed in a [id number] fashion with 3-0 Vicryl. Skin edges were then imbricated by placing several mattress sutures of 2-0 Prolene. The patient tolerated procedure without difficulty and has awakened from her anesthetic and is in the process of being sent back to the recovery room in stable condition. MILO
--- NOTE | 2016-11-24 09:33 | Pharmacy Consult-Antibiotics ---
Pharmacy Consult-Vancomycin - Laboratory Information WBC 11.1 T/MM3 (4.5-11.0) H 11/24/16 07:32 BUN 21.0 MG/DL (7-17) H 11/24/16 07:32 Creatinine 1.4 MG/DL (0.7-1.2) H 11/24/16 07:32 Procalcitonin 0.07 NG/ML 11/22/16 20:31 Vancomycin Trough 21.15 UG/ML (15-20) H* 11/24/16 07:32 VANCOMYCIN CONSULT: Vancomycin Trough = 21.5 mcg/ml. Today's SCr = 1.4 mg/dl. I changed the Vancomycin to 1,250 mg IV q19hrs bacause the trough was too high. The Pharmacy will continue to monitor and make adjustments accordingly. Thank you fot the Protocol, Ed Barcenas, Pharmacist.
[2016-11-24] MEDS: BUDESONIDE INH.SOLN 0.5mg/2ml NEB AEROSOL SCH ×2 (09:43→19:13)
[2016-11-24] MEDS: ALBUTEROL 2.5mg/3ml (0.083%) NEB AEROSOL PRN ×2 (09:43→19:14)
[2016-11-24] MEDS: INSULIN REGULAR, HUMAN 100 UNIT/ML INJECTION SQ PRN ×2 (10:58→14:20)
--- NOTE | 2016-11-24 15:18 | Progress Note ---
<Vicky Tang - Last Filed: 11/24/16 15:31> Subjective: Patient seen in her room while sitting in her chair. She reports that overall she feels well other than just feeling very drowsy today. She had amputation of the right second toe yesterday by Dr. Morales due to osteomyelitis. She continues on Zosyn and vancomycin. White count down today to 11.1 from 14.8 yesterday. Her creatinine has remained stable at 1.4. Blood sugars have averaged less than 200 except one reading of 217 this morning. She is on basal insulin and sliding scale. She states she doesn't have much of an appetite. She has just been taking in liquids today. Objective Vital signs: Temperature 96.3 F L 11/24/16 07:35 Pulse Rate 76 11/24/16 08:00 Respiratory Rate 12 11/24/16 09:43 Blood Pressure 162/69 H 11/24/16 07:35 Pulse Oximetry 93 11/24/16 10:11 Oxygen Delivery Method Room Air Oxygen Flow Rate 3 Height/Weight/BMI: Height 1.7 m Weight 134 kg Body Mass Index 44.8 - Constitutional Present: no acute distress, well nourished, well developed Comments: Appears tired - Routine HEENT Exam Eye: Present: EOMI ENT: Present: mucous membranes moist - Routine Respiratory Exam Present: crackles (diffuse). Absent: wheezes - Routine Cardiovascular Exam Present: RRR, S1, S2. Absent: murmur - Routine Abdominal Exam Present: soft, normoactive bowel sounds, non distended. Absent: tenderness - Routine Extremities Exam Present: normal capillary refill Comments: SCD's and booties are on. Swelling is noted to the R foot. No obvious swelling to L foot. - Routine Skin Exam Present: dry, warm - Routine Neurological Exam Present: alert, oriented X3, CN II-XII intact - Routine Lymphatic Exam Lymphatic: Absent: adenopathy - Routine Psychiatric Exam Present: normal affect, normal thought process Results - Labs CBC & Chem 7: 11/24/16 07:32 11/24/16 07:32 Labs: Laboratory Tests 11/23/16 11/24/16 01:45 07:32 Hemoglobin A1c 8.2 H C-Reactive Protein 218.3 H Microbiology Results: Microbiology 11/23/16 08:04 Toe,Second Right Gram Stain - Final 11/23/16 08:04 Toe,Second Right Superficial Wound Culture - Preliminary Early growth Assessment and Plan (1) Osteomyelitis of toe of right foot Current visit: Yes Status: Acute 11/22/16 23:35 npo, surgical consult in am. zosyn, and vanco, pharmacy to dose, secondary to diabetic foot ulcer. (2) CKD (chronic kidney disease) stage 3, GFR 30-59 ml/min Current visit: Yes Status: Acute 11/22/16 23:37 with diabetes must be careful regarding renal toxic meds and hydration status. pharmacy to assist with dosing, ivf, repeat bmp in am. (3) DM type 2 (diabetes mellitus, type 2) Current visit: Yes Status: Acute 11/22/16 23:37 correctional plan, hold all other agents as npo (4) HTN (hypertension) Current visit: Yes Status: Acute 11/22/16 23:38 hold agents until confirmed that blood pressure adequately tolerate infected state, hold diuretics anyway (5) Severe sepsis Current visit: Yes Status: Acute Assessment and Plan: A/P: Osteomyelitis right second toe - status post amputation 11/23/16 Severe sepsis Diabetes mellitus, type II, with diabetic neuropathy and nephropathy, chronic insulin use. Normocytic anemia CKD-stage III PE 09/25 History of breast cancer Hypertension Restless leg syndrome Continue broad-spectrum antibiotics with vancomycin and Zosyn due to diabetic foot infection with osteomyelitis. Continue basal insulin with corrective scale insulin for now. Once she starts eating regularly will reinstate routine mealtime insulin. Continue IV/PO narcotics for pain and home meds as appropriate. Sepsis Assessment - Evaluation Sepsis screening result: No Definite Risk Hospital Course Summary Disclaimer: The visit summary below is not to be considered part of the above Progress Note. Hospital Course: 11/23/16 Hospital admission Patient admitted with severe sepsis and osteomyelitis of the second right toe with cellulitis. Continue broad-spectrum antibiotics with vancomycin and Zosyn due to diabetic foot infection. Surgical consultation initiated, call placed to Dr. Morales regarding surgical plans. High likelihood that second toe will require amputation. Baseline CRP to be obtained in the morning, A1c to be rechecked-last A1c 8.2 in June. Continue basal insulin with corrective scale insulin while nothing by mouth. Continue IV/PO narcotics for pain and home meds as appropriate. Anticipate greater than 2 days hospitalization due to need for IV antibiotics and supportive care. Patient will return to care of Dr. Rosenthal discharge. 11/24/16 Hospital day #2 Patient had right second toe amputation yesterday with Dr. Morales. Continues on broad-spectrum antibiotics with vancomycin and Zosyn. Continue basal insulin with corrective scale insulin for now. Once she starts eating regularly will reinstate routine mealtime insulin. Continue IV/PO narcotics for pain and home meds as appropriate <Romi Parks - Last Filed: 11/24/16 18:48> Objective Vital signs: Temperature 97.4 F 11/24/16 15:12 Pulse Rate 67 11/24/16 15:12 Respiratory Rate 17 11/24/16 15:12 Blood Pressure 115/64 11/24/16 15:12 Pulse Oximetry 100 11/24/16 15:12 Oxygen Delivery Method Nasal Cannula Oxygen Flow Rate 3 Height/Weight/BMI: Height 1.7 m Weight 134 kg Body Mass Index 44.8 Results - Labs CBC & Chem 7: 11/24/16 07:32 11/24/16 07:32 Microbiology Results: Microbiology 11/23/16 08:04 Toe,Second Right Gram Stain - Final 11/23/16 08:04 Toe,Second Right Superficial Wound Culture - Preliminary Early growth Assessment and Plan (1) Osteomyelitis of toe of right foot Current visit: Yes Status: Acute (2) CKD (chronic kidney disease) stage 3, GFR 30-59 ml/min Current visit: Yes Status: Acute (3) DM type 2 (diabetes mellitus, type 2) Current visit: Yes Status: Acute (4) HTN (hypertension) Current visit: Yes Status: Acute (5) Severe sepsis Current visit: Yes Status: Acute Assessment and Plan: I have independently evaluated and examined this patient. I reviewed the chart, the patient's history, and the PACKAGER/PA's documented findings as above. We discussed and formulated the assessment and plan as above with additions as below: Mrs. Flores was fairly drowsy when seen but was up in a chair. She denied dyspnea , nausea, or pain the time of my assessment. She reported that she's not yet had a bowel movement since hospitalization and that she wasn't hungry. She is intermittently having some throbbing pain in her foot following amputation. Respirations were nonlabored, airflow diminished, and crackles present at the bases posteriorly. There is persistent edema of both ankles, right greater than left. Cardiac rhythm regular CRP-218.3 Cultures pending Resume Traci. d/w Dr. Morales. Hospital Course Summary Disclaimer: The visit summary below is not to be considered part of the above Progress Note.
--- NOTE | 2016-11-24 19:41 | Progress Note ---
DATE 11/24/2016 FINDINGS Ms. Flores this evening was without complaints. She states she had very little discomfort following her toe amputation. EXAM VITAL SIGNS: Afebrile, normotensive. Please refer to EMR. EXTREMITIES: Attention was focused to the right foot. Dressing was intact and dry. I did not remove the dressing this evening. ASSESSMENT Status post right second toe amputation. Patient doing well. PLAN Patient is stable from a surgical standpoint. Continue with current care. MILO
[2016-11-24] MEDS: ATORVASTATIN 20 MG TABLET PO SCH (22:22)
[2016-11-24] MEDS: INSULIN DETEMIR 100unit/ml INJECTION SQ SCH (22:24)
[2016-11-24] MEDS: QUETIAPINE 50 MG TABLET PO SCH (22:25)
[2016-11-25] MEDS: PIPERACILLIN/TAZOBACTAM 3.375 GM in NS 100 ML IV SCH ×3 (00:30→11:56)
[2016-11-25] MEDS: NS 1,000 ML IV SCH ×3 (03:16→16:08)
[2016-11-25] MEDS: HYDROCODONE/APAP 10 MG/325 MG TABLET PO PRN ×2 (06:26→17:11)
[2016-11-25] MEDS: HYDROMORPHONE 2 MG/ML INJECTION IVP PRN ×3 (07:50→23:26)
--- NOTE | 2016-11-25 08:22 | General Surgery Progress Note ---
Subjective Patient reports: no new complaints (but concerned about the smaller wound lateral left great toe and tip of 2nd toe.), voiding w/o difficulty, bowel movement (daily for last several days) - Vital Signs Last Vital Signs Temp 95.9 F L 11/25/16 06:00 Pulse 67 11/25/16 06:00 Resp 16 11/25/16 06:00 BP 135/67 11/25/16 06:00 Pulse Ox 98 11/25/16 06:00 - Laboratory Result Diagrams: 11/25/16 04:39 11/25/16 04:39 - Microbiogy Microbiology 11/23/16 08:04 Toe,Second Right Gram Stain - Final 11/23/16 08:04 Toe,Second Right Superficial Wound Culture - Preliminary Strep agalactiae - (Group B) Streptococcus viridans group - Abnormal Exam Respiratory: wheezes Cardiovascular: murmur Skin: incision right 2nd toe amputation in tact, mild edema and erythema around incision and about 1/3-1/2 dorsum of foot. Not warm, not tender. Right lateral great toe with small "unique" in skin. 2nd toe dry scab over tip of toe. - Normal Exam General: awake, alert, oriented Cardiovascular: regular rate Abdominal: soft, non-tender Wound/Stoma/Drain Assessment - Wound Management Right Toe - 2nd Digit Wound Type: Diabetic Foot Ulcer Wound Present on Admission?: Yes Wound Length: 1 Wound Width: 1.2 Wound Depth: 0.1 Tunneling: No Wound Bed Appearance: [place], [place], [place], Necrotic Wound Surrounding Tissue Appearance: Purple Wound Drainage Description: Purulent (culture obtained) Wound Drainage Amount: Moderate Wound Drainage Odor: Slight Odor Wound Dressing Status: Changed Wound Irrigant Solution: Saline Irrigant Primary Dressing: Gauze Roll/Wrap (Gauze roll used at this time until Dr Morales comes to see pt.) Assessment and Plan (1) Osteomyelitis of toe of right foot Current Visit: Yes Status: Acute (2) Wound, open, toe Current Visit: Yes Status: Chronic Qualifiers: Encounter type: initial encounter Qualified Code(s): S91.109A - Unspecified open wound of unspecified toe(s) without damage to nail, initial encounter Assessment and plan: Currently with dry scab over toe, await Dr. Morales's evaluation Hospital Course Summary Disclaimer: The visit summary below is not to be considered part of the above Progress Note. Hospital Course: 11/23/16 Hospital admission Patient admitted with severe sepsis and osteomyelitis of the second right toe with cellulitis. Continue broad-spectrum antibiotics with vancomycin and Zosyn due to diabetic foot infection. Surgical consultation initiated, call placed to Dr. Morales regarding surgical plans. High likelihood that second toe will require amputation. Baseline CRP to be obtained in the morning, A1c to be rechecked-last A1c 8.2 in June. Continue basal insulin with corrective scale insulin while nothing by mouth. Continue IV/PO narcotics for pain and home meds as appropriate. Anticipate greater than 2 days hospitalization due to need for IV antibiotics and supportive care. Patient will return to care of Dr. Rosenthal discharge. 11/24/16 Hospital day #2 Patient had right second toe amputation yesterday with Dr. Morales. Continues on broad-spectrum antibiotics with vancomycin and Zosyn. Continue basal insulin with corrective scale insulin for now. Once she starts eating regularly will reinstate routine mealtime insulin. Continue IV/PO narcotics for pain and home meds as appropriate Sepsis Assessment - Evaluation Sepsis screening result: No Definite Risk
[2016-11-25] MEDS: ROPINIROLE 1 MG TABLET PO SCH ×2 (08:48→22:04)
[2016-11-25] MEDS: Desvenlafaxine SR 50 MG TABLET PO SCH (08:48)
[2016-11-25] MEDS: GABAPENTIN 300 MG CAPSULE PO SCH ×3 (08:48→22:03)
[2016-11-25] MEDS: ALLOPURINOL 100 MG TABLET PO SCH (08:49)
[2016-11-25] MEDS: BUDESONIDE INH.SOLN 0.5mg/2ml NEB AEROSOL SCH ×2 (09:12→19:22)
[2016-11-25] MEDS: ALBUTEROL 2.5mg/3ml (0.083%) NEB AEROSOL PRN ×2 (09:12→19:22)
--- NOTE | 2016-11-25 11:05 | Progress Note ---
<Vicky Tang - Last Filed: 11/25/16 11:51> Subjective: Patient is seen in her room sitting in her chair. She reports she is feeling better. She ate some supper last night and breakfast this morning. She still complains of a lot of back pain. States she received 2 [place] this morning and it did not help much with her pain. She then received Dilaudid and had significant improvement with her pain. She reports her pain level in regard to her toe is 3/10. She reports PT is planning on working with her today. She also states that Dr. Morales will be coming by to evaluate her left second toe in addition to her surgical wound. Apparently she has had some issues with the second toe on the left foot as well. She was previously seeing Dr. Quezada for routine nail trimming. States she had a good bowel movement yesterday. Objective Vital signs: Temperature 95.9 F L 11/25/16 06:00 Pulse Rate 67 11/25/16 06:00 Respiratory Rate 20 11/25/16 09:15 Blood Pressure 135/67 11/25/16 06:00 Pulse Oximetry 92 11/25/16 09:15 Oxygen Delivery Method Nasal Cannula Oxygen Flow Rate 2 Height/Weight/BMI: Height 1.7 m Weight 134 kg Body Mass Index 44.8 - Constitutional Present: no acute distress, well nourished, well developed - Routine HEENT Exam Head: Present: normocephalic, atraumatic Eye: Present: EOMI ENT: Present: mucous membranes moist - Routine Respiratory Exam Present: crackles. Absent: wheezes - Routine Cardiovascular Exam Present: RRR, S1, S2. Absent: murmur - Routine Abdominal Exam Present: soft, normoactive bowel sounds, non distended. Absent: tenderness - Routine Extremities Exam Present: edema (right foot), normal capillary refill Comments: Surgical wound on right foot covered with gauze. Dressing was left intact as Dr. Morales will evaluate later today. Left second toe with callus and scab over distal tip on plantar surface. - Routine Skin Exam Present: dry, warm - Routine Neurological Exam Present: alert, oriented X3 - Routine Lymphatic Exam Lymphatic: Absent: adenopathy - Routine Psychiatric Exam Present: normal affect, normal thought process Results - Labs CBC & Chem 7: 11/25/16 04:39 11/25/16 04:39 Microbiology Results: Microbiology 11/23/16 08:04 Toe,Second Right Gram Stain - Final 11/23/16 08:04 Toe,Second Right Superficial Wound Culture - Preliminary Strep agalactiae - (Group B) Streptococcus viridans group Assessment and Plan (1) Osteomyelitis of toe of right foot Current visit: Yes Status: Acute (2) CKD (chronic kidney disease) stage 3, GFR 30-59 ml/min Current visit: Yes Status: Acute (3) DM type 2 (diabetes mellitus, type 2) Current visit: Yes Status: Acute (4) HTN (hypertension) Current visit: Yes Status: Acute (5) Severe sepsis Current visit: Yes Status: Acute Assessment and Plan: Assessment: Osteomyelitis right second toe - status post amputation 11/23/16 Severe sepsis Back pain-new since hospitalization Diabetes mellitus, type II, with diabetic neuropathy and nephropathy, chronic insulin use. Normocytic anemia CKD-stage III PE 09/25 History of breast cancer Hypertension Restless leg syndrome Plan: Continue broad-spectrum antibiotics with vancomycin and Zosyn due to diabetic foot infection until sensitivities are resulted. Continue basal insulin with corrective scale insulin for now. She is starting to eat. Monitor sugars closely and if sugars are consistently >200, will restart mealtime insulin. Given that she has crackles on lung exam and her weight is up almost 4 kg, obtain chest x-ray and resume her home Lasix and potassium. Continue IV/PO narcotics for pain and home meds as appropriate. Sepsis Assessment - Evaluation Sepsis screening result: No Definite Risk Hospital Course Summary Disclaimer: The visit summary below is not to be considered part of the above Progress Note. Hospital Course: 11/23/16 Hospital admission Patient admitted with severe sepsis and osteomyelitis of the second right toe with cellulitis. Continue broad-spectrum antibiotics with vancomycin and Zosyn due to diabetic foot infection. Surgical consultation initiated, call placed to Dr. Morales regarding surgical plans. High likelihood that second toe will require amputation. Baseline CRP to be obtained in the morning, A1c to be rechecked-last A1c 8.2 in June. Continue basal insulin with corrective scale insulin while nothing by mouth. Continue IV/PO narcotics for pain and home meds as appropriate. Anticipate greater than 2 days hospitalization due to need for IV antibiotics and supportive care. Patient will return to care of Dr. Rosenthal discharge. 11/24/16 Hospital day #2 Patient had right second toe amputation yesterday with Dr. Morales. Continues on broad-spectrum antibiotics with vancomycin and Zosyn. Continue basal insulin with corrective scale insulin for now. Once she starts eating regularly will reinstate routine mealtime insulin. Continue IV/PO narcotics for pain and home meds as appropriate 11/25/16 11:29 Hospital day #3 Continue broad-spectrum antibiotics with vancomycin and Zosyn due to diabetic foot infection. Continue basal insulin with corrective scale insulin for now. She is starting to eat. Monitor sugars closely and if sugars are consistently >200, will restart mealtime insulin. Given that she has crackles on lung exam and her weight is up almost 4 kg, obtain chest x-ray and restart her home Lasix and potassium. Continue IV/PO narcotics for pain and home meds as appropriate. <Romi Parks - Last Filed: 11/25/16 16:12> Objective Vital signs: Temperature 96.3 F L 11/25/16 15:18 Pulse Rate 64 11/25/16 15:18 Respiratory Rate 18 11/25/16 15:18 Blood Pressure 127/57 11/25/16 15:18 Pulse Oximetry 94 11/25/16 15:18 Oxygen Delivery Method Nasal Cannula Oxygen Flow Rate 2 Height/Weight/BMI: Height 1.7 m Weight 138.1 kg Body Mass Index 44.8 Results - Labs CBC & Chem 7: 11/25/16 04:39 11/25/16 04:39 Microbiology Results: Microbiology 11/23/16 08:04 Toe,Second Right Gram Stain - Final 11/23/16 08:04 Toe,Second Right Superficial Wound Culture - Preliminary Strep agalactiae - (Group B) Streptococcus viridans group Assessment and Plan (1) Osteomyelitis of toe of right foot Current visit: Yes Status: Acute (2) CKD (chronic kidney disease) stage 3, GFR 30-59 ml/min Current visit: Yes Status: Acute (3) DM type 2 (diabetes mellitus, type 2) Current visit: Yes Status: Acute (4) HTN (hypertension) Current visit: Yes Status: Acute (5) Severe sepsis Current visit: Yes Status: Acute Assessment and Plan: I have independently evaluated and examined this patient. I reviewed the chart, the patient's history, and the TOWER DRAGLINE OPERATOR/PA's documented findings as above. We discussed and formulated the assessment and plan as above with additions as below: Lauren reports that her breathing is okay. Nursing reports attempts to wean off of oxygen while awake failed with O2 sats dropping into the 80s. Nursing additional reports that a single [place] 10 provides an adequate pain medication ( chronically use [place] 10 at home for pain control) but that 1 mg of Dilaudid IV resultant sedation. Overnight oximetry completed with desaturation demonstrated early in the night on room air prompting study on 2 L initially increasing to 3 L due to persistent desaturation on 2 L. NAD, slightly drowsy Decreased breath sounds at the bases with crackles present bilaterally, no wheezing Edema present bilateral lower extremities +1/2, stasis changes present; diminished awareness of light touch distal lower extremities. Chest x-ray reviewed by myself-increased vascular markings, small pleural effusions. Discussed with Dr. Sutherland-converted from vancomycin/Zosyn to Unasyn IV for strep species identified in preliminary cultures. Surgical pathology pending. Diuresed more aggressively-IV Lasix given. Resume warfarin, history PE 14 months ago. INR slightly low on admission, Lovenox 40 mg daily initiated pending therapeutic INR. Patient may ambulate putting weight only on her right heel per surgery. PT consulted. Blood sugars [id number] concerned about resuming mealtime insulin but do not feel it is needed at this time. Dilaudid dose/frequently decreased. Incentive spirometry ordered. Past with nursing and case management. May require supplemental oxygen at discharge due to underlying COPD/hypoxia. Will ultimately require outpatient sleep study. Hospital Course Summary Disclaimer: The visit summary below is not to be considered part of the above Progress Note.
[2016-11-25] MEDS: INSULIN REGULAR, HUMAN 100 UNIT/ML INJECTION SQ PRN ×2 (11:15→14:29)
[2016-11-25] MEDS: FUROSEMIDE 40 MG TABLET PO SCH (11:57)
--- NOTE | 2016-11-25 13:20 | Infectious Disease Consult ---
Infectious Disease Consult Date of Consultation: 11/25/16 Requesting Physician: Adrian Morales Reason for Consultation: antibiotic recs History of Present Illness: Ms. Flores is a 71 y/o diabetic woman who was admitted here on 11/22/16 with sepsis and osteomyelitis of the R 2nd toe. She developed a wound on this toe, she's not sure how, and had been seeing a fuel truck driver for this. It continued to worsen, and she developed fevers, chills, N/V for about 1.5 weeks prior to admission. Blood cultures from admission were negative. X-ray done in the ED showed osteomyelitis of the R 2nd toe. She underwent amputation of this toe by Dr. Morales on 11/23/16. He felt that the metatarsal head appeared intact per op note. Operative wound culture is growing GBS and Strep viridans. The gram stain had GPC in pairs, clusters and also some GNRs. She has been on Zosyn and Vanco since admission. Path is pending. I've been asked to help with her antibiotics. Medications Home Medications Medication Instructions Recorded Confirmed Type Allopurinol 100 mg PO DAILY #0 10/17/08 11/22/16 History Furosemide [Lasix] 40 mg PO DAILY #0 10/17/08 11/22/16 History Metoprolol Succinate 25 mg PO DAILY #0 10/17/08 11/22/16 History Omeprazole 20 mg PO DAILY #0 10/17/08 11/22/16 History Potassium Chloride [Klor-Con M20] 20 meq PO BID #0 10/17/08 11/22/16 History Quetiapine Fumarate [Seroquel] 100 mg PO HS #0 10/17/08 11/22/16 History Ropinirole [Requip] 1 mg PO BID #0 10/17/08 11/22/16 History Atorvastatin Calcium [Lipitor] 20 mg PO HS #0 09/03/10 11/22/16 History Gabapentin [Neurontin] 300 mg PO TID #0 09/03/10 11/22/16 History Hydrocodone/Acetaminophen 1 - 2 tab PO Q8HR PRN #0 10/25/15 11/22/16 History [Hydrocodon-Acetaminophn 10-325] Warfarin Sodium 2 mg PO DAILY #90 tab 03/24/16 11/22/16 History Tizanidine HCl 2 mg PO DAILY #0 03/25/16 11/22/16 History Albuterol Neb (0.083%) [Proventil 2.5 mg AEROSOL Q6HR PRN 11/22/16 11/22/16 History Neb (0.083%)] Desvenlafaxine Sr [Pristiq] 50 mg PO DAILY 11/22/16 11/22/16 History Insulin Aspart [NovoLOG] 12 unit SQ TIDWM 11/22/16 11/22/16 History Allergies Allergy/AdvReac Type Severity Reaction Status Date / Time codeine Allergy Unknown RASH Verified 11/22/16 20:29 prochlorperazine Allergy Unknown Verified 11/22/16 20:29 Sulfa (Sulfonamide Allergy Unknown Verified 11/22/16 20:29 Antibiotics) [facility] Patient Stated Medical History Cerebrovascular Accident Yes: minor right sided weakness and right facial droop Syncope Yes Dental Problems Yes Angina No Cardiac Arrhythmia No Congestive Heart Failure No Coronary Artery Disease No Heart Murmur No Hypertension No Hypotension No Myocardial Infarction No Rheumatic Fever No Valvular Heart Disease No Other Cardiology No: Recent Cath/stress test/echo with Dr. Conn. no negative results Asthma Yes Chronic Obstructive Pulmonary Yes Disease (COPD) Pulmonary Embolism Yes: hx Sleep Apnea Yes Diabetes Mellitus Type 1 Yes Diabetes Mellitus Type 2 Yes Gastroesophageal Reflux Yes: moderate Disease Hepatitis Yes: C Hx Incontinence Yes Hx Renal Disease Yes: stage 3 Clotting Problems Yes Osteoarthritis Yes Cellulitis Yes Anesthesia Reactions No Blood Transfusions No Chemotherapy No Malignant Hyperthermia No Other No Depression Yes Now No Medical History Updates: COPD. Gout. HL. Depr. CHF. history of breast cancer. pulmonary emboli in October 2015. history hepatitis C successfully treated/cured. CKD stage 3. fibromyalgia. Cardiac catheterization in March 2016 demonstrated ejection fraction of 65% and single vessel LAD disease with 30% stenosis. Diabetic peripheral neuropathy. DM. Tinea cruris. GERD. Hypokalemia. Insomnia. Arrhythmia. RLS Surgical History: cholecystectomy, tubal ligation, breast lumpectomy cancer, ventral herniorrhaghy, bilateral total knee replacements Dr. Leos, Left shoulder anterior acromioplasty and open clavicular resection 09-04-10, normal colonoscopy 06-01-2008 Dr. Morales, EGD Irregular GE junction 06-01-2008 Dr. Morales, HEART CATH EF 65% and mild CAD in LAD 12 Dr. Conn. S/p R 2nd toe amputation 11/23/16 Family History: she was adopted - Social History Smoking status: Former smoker (quit 5 mos ago) Current occupational status: disabled Current residence: Apartment/Private Home Review of Systems - Constitutional Constitutional: Absent: chills, fever(s) - EENMT Eyes: Absent: change in vision Mouth/Throat: Absent: sore throat - Cardiovascular Cardiovascular: Absent: chest pain - Respiratory Respiratory: Present: dyspnea. Absent: cough - Gastrointestinal Gastrointestinal: Present: nausea (resolved). Absent: abdominal pain, diarrhea - Genitourinary Genitourinary: Absent: dysuria - Musculoskeletal Musculoskeletal: Present: neck pain - Integumentary/Breasts Integumentary: Absent: rash - Neurological Neurological: Present: headache(s), numbness (neuropathy) - Hematologic/Lymphatic Hematologic/Lymphatic: Present: easy bleeding, easy bruising Exam Vital Signs: Temperature 95.9 F L 11/25/16 06:00 Pulse Rate 58 L 11/25/16 11:00 Respiratory Rate 18 11/25/16 11:00 Blood Pressure 128/66 11/25/16 11:00 Pulse Oximetry 85 L 11/25/16 12:01 Oxygen Delivery Method Room Air Oxygen Flow Rate 2 Height/Weight/BMI: Height 1.7 m Weight 134 kg Body Mass Index 44.8 - Constitutional Present: no acute distress, well nourished, well developed - Routine HEENT Exam Head: Present: normocephalic, atraumatic Eye: Present: EOMI, PERRL ENT: Present: mucous membranes moist, dentition normal - Routine Neck Exam Present: supple - Routine Respiratory Exam Present: CTA bilaterally. Absent: wheezes Comments: she is on 2L O2, which she states she is not usually on O2 - Routine Cardiovascular Exam Present: RRR. Absent: murmur - Routine Abdominal Exam Present: soft, normoactive bowel sounds, non distended. Absent: tenderness - Routine Extremities Exam Present: edema (trace chronic-appearing LE edema) Comments: R 2nd toe is surgically missing. Incision site in intact with sutures, there is moderate soft tissue edema and erythema surrounding this, and extending proximally up her foot - Routine Skin Exam Absent: rash Comments: L 2nd toe has a chronic callous. She has chronic-appearing skin changes on her LEs consistent with stasis dermatitis. - Routine Neurological Exam Present: alert, oriented X3, CN II-XII intact, sensory deficit (she can barely feel me touching her R foot) - Routine Psychiatric Exam Present: normal affect, normal thought process Results - Labs CBC & Chem 7: 11/25/16 04:39 11/25/16 04:39 Microbiology Results: Microbiology 11/23/16 08:04 Toe,Second Right Gram Stain - Final 11/23/16 08:04 Toe,Second Right Superficial Wound Culture - Preliminary Strep agalactiae - (Group B) Streptococcus viridans group Microbiology 11/23/16 08:04 Toe,Second Right Gram Stain - Final 11/23/16 08:04 Toe,Second Right Superficial Wound Culture - Preliminary Strep agalactiae - (Group B) Streptococcus viridans group 11/22/16 20:30 Peripheral/Iv Start Blood Culture - Preliminary No Growth After 2 Days 11/22/16 20:35 Peripheral/Iv Start Blood Culture - Preliminary No Growth After 2 Days Impression: Sepsis secondary to musculoskeletal source. Osteomyelitis R 2nd toe, s/p amputation 11/23/16. Wound culture with GBS and Strep viridans, but there were also GNR on the gram stain. DM II, IR, with peripheral neuropathy CKD, stage 3 H/o breast cancer H/o PE on anticoagulation H/o tobaccoism, quit 5 months ago Recommendation: I discussed with her that I might recommend 6 weeks of IV antibiotics for osteomyelitis. The path is pending, so I'll wait for that. I discussed with her that she's at high risk for complications/poor wound healing due to her diabetes and neuropathy. Recommend narrowing her antibiotics to Unasyn for now. Discussed with Dr. Parks. Sepsis Assessment - Evaluation Sepsis screening result: No Definite Risk
--- NOTE | 2016-11-25 14:20 | XRay Report ---
INDICATION: crackles in lungs, weight gain PROCEDURE: CHEST 2-VIEWS UPRIGHT (PA & LAT) Encounter: Initial COMPARISON: CT angiogram of the chest and chest x-ray dated October 28, 2015 FINDINGS: Development of mild pulmonary vascular congestion with increasing interstitial prominence. No lobar consolidative pneumonia or pneumothorax. Small bilateral pleural effusions are new. Cardiac silhouette is mildly enlarged but unchanged. Mediastinal contours are stable. Impression: Mild pulmonary edema. .
[2016-11-25] MEDS ORDERED: FUROSEMIDE 20 MG/2 ML INJECTION IVP ONE (15:56)
--- NOTE | 2016-11-25 16:27 | Pharmacy Consult ---
Pharmacy Consult-Warfarin - Laboratory Information SH is a 71yo F admitted with osteromyelitis Rt 2nd Toe. Now post ambutation. Comorbidities of CKD, T2DM, HTN, SEPSIS, Hx of PE. Warfarin home dose reported as 2mg po daily. Has been on hold since admission. Bridging with Enoxaparin 40mg SQ dailly until back to therapeutic INR. Will give Warfarin 2mg today. Noted drug-drug interaction with Ropinirole 1mg po bid. Thank you.
[2016-11-25] MEDS ORDERED: WARFARIN 2 MG TABLET PO ONE (17:00)
[2016-11-25] MEDS: ENOXAPARIN 40 MG/0.4 ML INJECTION SQ SCH (17:10)
[2016-11-25] MEDS: SALINE FLUSH 10ml SYRINGE IVF PRN ×3 (17:10→23:30)
[2016-11-25] MEDS: AMPICILLIN/SULBACTAM 3 G in NS 100 ML IV SCH (17:10)
[2016-11-25 18:17] VITALS: BMI 47.7
--- NOTE | 2016-11-25 18:19 | Progress Note ---
DATE 11/25/2016 FINDINGS Lauren this evening was in good spirits. EXAM VITAL SIGNS: Afebrile, normotensive. Please refer to EMR. EXTREMITIES: Attention was focused to her feet. The patient does have a hypertrophic callus involving the tip of her right second toe. No evidence for skin breakdown noted involving left foot. Attention was then focused to her surgical wound from her right second toe amputation. Incision is clean, dry and intact. Surrounding erythema has significantly dissipated. ASSESSMENT 71-year-old female with Rodgers grade 3 right diabetic foot ulcer. Status post right second toe amputation. Patient doing well. PLAN Continue current care. Patient is stable from a surgical standpoint. Will perform paring of hypertrophic callus involving left second toe on rounds likely tomorrow. MTDD
[2016-11-25] MEDS: QUETIAPINE 50 MG TABLET PO SCH (22:03)
[2016-11-25] MEDS: ATORVASTATIN 20 MG TABLET PO SCH (22:03)
[2016-11-25] MEDS: INSULIN DETEMIR 100unit/ml INJECTION SQ SCH (22:04)
[2016-11-26] MEDS: AMPICILLIN/SULBACTAM 3 G in NS 100 ML IV SCH ×3 (01:15→18:03)
[2016-11-26] MEDS: SALINE FLUSH 10ml SYRINGE IVF PRN ×5 (01:25→22:07)
--- NOTE | 2016-11-26 08:13 | Pharmacy Consult ---
Pharmacy Consult-Warfarin - Laboratory Information 11/26/16 04:24 INR 1.76 H COUMADIN CONSULT: , 71 yo female, admitted for osteomyelitis of right 2nd toe with comorbidities for chronic kidney disease, DM type II, hypertension. Patient has a history of PE and is on chronic anticoagulation therapy with Warfarin 2 mg daily as a home dose. Date INR Dose 11/25 1.65* 2 mg 11/26 1.76 Plan 3 mg Today's INR was 1.76. I ordered a dose of warfarin 3 mg to see if we could bump the INR to the therapeutic range a little more quickly. The Pharmacy will continue to monitor the INR's and adjust the dosage of the Coumadin accordingly. Thank you for the Warfarin Dosing Protocol, Ed Barcenas, Pharmacist.
[2016-11-26] MEDS: BUDESONIDE INH.SOLN 0.5mg/2ml NEB AEROSOL SCH ×2 (08:33→19:39)
[2016-11-26] MEDS: Desvenlafaxine SR 50 MG TABLET PO SCH (09:06)
[2016-11-26] MEDS: ENOXAPARIN 40 MG/0.4 ML INJECTION SQ SCH (09:06)
[2016-11-26] MEDS: GABAPENTIN 300 MG CAPSULE PO SCH ×3 (09:06→21:49)
[2016-11-26] MEDS: ROPINIROLE 1 MG TABLET PO SCH ×2 (09:06→21:49)
[2016-11-26] MEDS: ALLOPURINOL 100 MG TABLET PO SCH (09:07)
[2016-11-26] MEDS: HYDROCODONE/APAP 10 MG/325 MG TABLET PO PRN ×2 (09:07→18:02)
[2016-11-26] MEDS: FUROSEMIDE 40 MG TABLET PO SCH (09:07)
[2016-11-26] MEDS: SENNA + DOCUSATE TABLET PO SCH ×2 (10:08→21:50)
[2016-11-26] MEDS: INSULIN REGULAR, HUMAN 100 UNIT/ML INJECTION SQ PRN ×2 (11:00→15:15)
--- NOTE | 2016-11-26 11:16 | Progress Note ---
<Vicky Tang - Last Filed: 11/26/16 14:49> Subjective: Patient is seen today in her room sitting in her chair. She reports she feels weak and tired. She has noticed some shortness of breath when she is walking. She does complain of some cough. She had a chest x-ray yesterday which showed increased pulmonary congestion. Her weight is up over 7 pounds since admission. She was given an extra dose of IV Lasix yesterday. She reports her appetite is better. She remains on basal insulin and a sliding scale. Her blood sugars are starting to trend up at this point. Objective Vital signs: Temperature 97.0 F 11/26/16 08:20 Pulse Rate 76 11/26/16 08:20 Respiratory Rate 18 11/26/16 08:33 Blood Pressure 164/77 H 11/26/16 08:20 Pulse Oximetry 93 11/26/16 08:33 Oxygen Delivery Method Room Air Height/Weight/BMI: Height 1.7 m Weight 137.4 kg Body Mass Index 47.7 - Constitutional Present: no acute distress, well nourished, well developed - Routine HEENT Exam Head: Present: normocephalic, atraumatic Eye: Present: EOMI ENT: Present: mucous membranes moist - Routine Respiratory Exam Present: crackles (bilateral bases). Absent: respiratory distress - Routine Cardiovascular Exam Present: RRR, S1, S2, no murmur - Routine Abdominal Exam Present: soft, normoactive bowel sounds, non distended. Absent: tenderness - Routine Extremities Exam Present: normal capillary refill Comments: Chronic diabetic skin changes. Surgical site is currently dressed with gauze. Patient has minimal feeling and does not complain of tenderness with palpation. - Routine Skin Exam Present: dry, warm - Routine Neurological Exam Present: alert, oriented X3 - Routine Lymphatic Exam Lymphatic: Absent: adenopathy - Routine Psychiatric Exam Present: normal affect, normal thought process Results - Labs CBC & Chem 7: 11/26/16 04:24 11/26/16 04:24 Microbiology Results: Microbiology 11/23/16 08:04 Toe,Second Right Gram Stain - Final 11/23/16 08:04 Toe,Second Right Superficial Wound Culture - Preliminary Strep agalactiae - (Group B) Streptococcus viridans group Assessment and Plan (1) Osteomyelitis of toe of right foot Current visit: Yes Status: Acute (2) CKD (chronic kidney disease) stage 3, GFR 30-59 ml/min Current visit: Yes Status: Acute (3) DM type 2 (diabetes mellitus, type 2) Current visit: Yes Status: Acute (4) HTN (hypertension) Current visit: Yes Status: Acute (5) Severe sepsis Current visit: Yes Status: Acute Assessment and Plan: Assessment: Severe sepsis secondary to osteomyelitis right second toe - status post amputation 11/23/16 Diabetes mellitus, type II, with diabetic neuropathy and nephropathy, chronic insulin use. CKD, stage 3 Normocytic anemia History of breast cancer Hypertension Restless leg syndrome H/o PE - on anticoagulation H/o tobaccoism, quit 06/26. Plan: Continue to monitor blood sugars. Will leave restarting mealtime insulin to attending, Dr. Cerna. Given that she continues to have shortness of breath, crackles on pulmonary exam and weight is up, will order another IV dose of Lasix today. Continue to monitor electrolytes and renal function. Pharmacy to continue managing anticoagulation therapy. This was initiated yesterday. Continue Unasyn per Dr. Sutherland. Recommendation for 6 weeks of IV antibiotics is pending path results. Sepsis Assessment - Evaluation Sepsis screening result: No Definite Risk Hospital Course Summary Disclaimer: The visit summary below is not to be considered part of the above Progress Note. Hospital Course: 11/23/16 Hospital admission Patient admitted with severe sepsis and osteomyelitis of the second right toe with cellulitis. Continue broad-spectrum antibiotics with vancomycin and Zosyn due to diabetic foot infection. Surgical consultation initiated, call placed to Dr. Morales regarding surgical plans. High likelihood that second toe will require amputation. Baseline CRP to be obtained in the morning, A1c to be rechecked-last A1c 8.2 in June. Continue basal insulin with corrective scale insulin while nothing by mouth. Continue IV/PO narcotics for pain and home meds as appropriate. Anticipate greater than 2 days hospitalization due to need for IV antibiotics and supportive care. Patient will return to care of Dr. Rosenthal discharge. 11/24/16 Hospital day #2 Patient had right second toe amputation yesterday with Dr. Morales. Continues on broad-spectrum antibiotics with vancomycin and Zosyn. Continue basal insulin with corrective scale insulin for now. Once she starts eating regularly will reinstate routine mealtime insulin. Continue IV/PO narcotics for pain and home meds as appropriate 11/25/16 11:29 Hospital day #3 Continue broad-spectrum antibiotics with vancomycin and Zosyn due to diabetic foot infection. Continue basal insulin with corrective scale insulin for now. She is starting to eat. Monitor sugars closely and if sugars are consistently >200, will restart mealtime insulin. Given that she has crackles on lung exam and her weight is up almost 4 kg, obtain chest x-ray and restart her home Lasix and potassium. Continue IV/PO narcotics for pain and home meds as appropriate. <Rosa Cerna - Last Filed: 11/26/16 15:10> Objective Vital signs: Temperature 96.3 F L 11/26/16 12:16 Pulse Rate 63 11/26/16 12:16 Respiratory Rate 16 11/26/16 12:16 Blood Pressure 130/66 11/26/16 12:16 Pulse Oximetry 92 11/26/16 12:17 Oxygen Delivery Method Nasal Cannula Oxygen Flow Rate 2 Height/Weight/BMI: Height 1.7 m Weight 137.4 kg Body Mass Index 47.7 Results - Labs CBC & Chem 7: 11/26/16 04:24 11/26/16 04:24 Microbiology Results: Microbiology 11/23/16 08:04 Toe,Second Right Gram Stain - Final 11/23/16 08:04 Toe,Second Right Superficial Wound Culture - Final Strep agalactiae - (Group B) Streptococcus viridans group Assessment and Plan (1) Osteomyelitis of toe of right foot Current visit: Yes Status: Acute (2) CKD (chronic kidney disease) stage 3, GFR 30-59 ml/min Current visit: Yes Status: Acute (3) DM type 2 (diabetes mellitus, type 2) Current visit: Yes Status: Acute (4) HTN (hypertension) Current visit: Yes Status: Acute (5) Severe sepsis Current visit: Yes Status: Acute Assessment and Plan: 11/26/2016-I reviewed this chart, the patient history, and the [employer]'s/PA's documented findings as above. We discussed and formulated the assessment and plan as above with the additions below. I've seen and examined the patient independently.-Dr. Cerna The patient is seen in her room this afternoon. She denies shortness of breath currently but is on a couple of liters of oxygen. She denies any chest pain. She states she has used 3 pillows when she sleeps at night for a couple of years to help her breathe better. She states that her Lasix was decreased by Dr. Conn because she had been having lightheadedness. She has been requiring supplemental oxygen since admission, likely secondary to fluid overload. Her weight is 3.4 kg since admission. She was given IV Lasix yesterday and today in addition to her usual oral Lasix which was restarted yesterday. She had a normal ejection fraction on echocardiogram one year ago and EF was also normal on heart catheterization last winter. She is not noticed any difference in her lower extremity edema since that time. She had several bowel movements yesterday after medication for constipation. She states she is urinating without difficulties. The patient reports increasing fatigue over the past 3 months. She has not noticed chest pain during this time. We'll check a TSH and initiate anemia workup. On exam she is alert and in no acute distress. Chest is clear to auscultation anteriorly. Cardiovascular reveals a regular rate and rhythm without murmur. Abdomen is soft, obese, nontender with positive bowel sounds. Extremities reveal 2+ lower extremity in the right leg and +1 lower extremity edema in the left leg. Lab shows BNP of 3960. Blood sugars are ranging from 154-219. INR is 1.76 Regarding acute on chronic hypoxic respiratory failure, this is most likely secondary to pulmonary edema seen on chest x-ray yesterday. Continue with diuresis. If not improving with diuresis, may need further workup and possible consultation with Dr. Conn. Regarding diabetes, She is eating okay and blood sugars are trending up. Will restart insulin with meals. Regarding chronic kidney disease, creatinine is slowly rising and is 1.7 today. Will recheck tomorrow. Regarding anemia, will check iron studies, B-12 and folate. Regarding low back pain, patient states this is chronic but a little worse this hospitalization. She has history of scoliosis. We'll try Lidoderm patch. Regarding nocturnal hypoxemia, patient will likely need O2 at night at home and work up for sleep study. Regarding history of PE, warfarin was restarted and she is on Lovenox DVT prophylaxis. Sepsis has resolved. Regarding osteomyelitis, patient is on Unasyn and being followed by Dr. Sutherland. Awaiting pathology report to help determine how long patient will need antibiotics. Increasing fatigue over the past several months. Will check TSH. Also initiate anemia workup. Hospital Course Summary Disclaimer: The visit summary below is not to be considered part of the above Progress Note.
[2016-11-26] MEDS ORDERED: WARFARIN 3 MG TABLET PO SCH (12:00)
[2016-11-26] MEDS: FUROSEMIDE 40 MG/4 ML INJECTION IVP SCH (12:05)
[2016-11-26] MEDS: LIDOCAINE 5% PATCH TOP SCH (15:59)
[2016-11-26] MEDS: INSULIN ASPART 100unit/ml INJECTION SQ SCH (18:03)
[2016-11-26] MEDS: ALBUTEROL 2.5mg/3ml (0.083%) NEB AEROSOL PRN (19:39)
[2016-11-26] MEDS: INSULIN DETEMIR 100unit/ml INJECTION SQ SCH (21:48)
[2016-11-26] MEDS: QUETIAPINE 50 MG TABLET PO SCH (21:49)
[2016-11-26] MEDS: ATORVASTATIN 20 MG TABLET PO SCH (21:49)
[2016-11-26] MEDS: LIDOCAINE PATCH REMOVAL TOP SCH (21:50)
[2016-11-26] MEDS: HYDROMORPHONE 2 MG/ML INJECTION IVP PRN (22:07)
[2016-11-27] MEDS: AMPICILLIN/SULBACTAM 3 G in NS 100 ML IV SCH ×2 (01:53→08:56)
[2016-11-27] MEDS: HYDROCODONE/APAP 10 MG/325 MG TABLET PO PRN ×2 (05:15→17:16)
--- NOTE | 2016-11-27 07:27 | Pharmacy Consult ---
Pharmacy Consult-Warfarin - Laboratory Information 11/26/16 11/27/16 04:24 04:34 INR 1.76 H 1.67 H - Consult Information Will give warfarin 4mg po today. Thank you.
[2016-11-27] MEDS: BUDESONIDE INH.SOLN 0.5mg/2ml NEB AEROSOL SCH ×2 (07:49→18:54)
[2016-11-27] MEDS: ALBUTEROL 2.5mg/3ml (0.083%) NEB AEROSOL PRN ×2 (07:50→18:54)
--- NOTE | 2016-11-27 08:53 | Progress Note ---
Subjective Date: 11/27/16 Subjective: She reports that her toe throbs intermittently, but overall is it feeling better. She reports having several loose stools per day, with some abdominal cramping. Denies fever, vomiting or itching/rash. She is currently eating breakfast. Exam Vital Signs: Temperature 96.1 F L 11/27/16 07:22 Pulse Rate 52 L 11/27/16 07:22 Respiratory Rate 16 11/27/16 07:52 Blood Pressure 102/56 11/27/16 07:22 Pulse Oximetry 98 11/27/16 07:52 Oxygen Delivery Method Nasal Cannula Oxygen Flow Rate 2 Height/Weight/BMI: Height 1.7 m Weight 137.4 kg Body Mass Index 47.7 - Constitutional Present: no acute distress, well nourished, well developed - Routine HEENT Exam Head: Present: normocephalic Eye: Present: EOMI ENT: Present: mucous membranes moist, dentition normal - Routine Neck Exam Present: supple - Routine Respiratory Exam Present: CTA bilaterally - Routine Cardiovascular Exam Present: RRR - Routine Abdominal Exam Present: soft, normoactive bowel sounds, non distended. Absent: tenderness, guarding - Routine Extremities Exam Absent: edema Comments: R 2nd toe amputation site with sutures intact. No drainage or erythema. The edema and mild erythema on the dorsum of the foot is improved. There is still some edema inferior to the incision on the plantar aspect of her foot. No tenderness. - Routine Skin Exam Present: dry, warm. Absent: rash - Routine Neurological Exam Present: alert, oriented X3, CN II-XII intact - Routine Psychiatric Exam Present: normal affect Results - Labs CBC & Chem 7: 11/27/16 04:34 11/27/16 04:34 Labs: Pathology report indicates that the bony margins were negative for abnormality. Microbiology Results: Microbiology 11/23/16 08:04 Toe,Second Right Gram Stain - Final 11/23/16 08:04 Toe,Second Right Superficial Wound Culture - Final Strep agalactiae - (Group B) Streptococcus viridans group Impression: Sepsis secondary to musculoskeletal source. Osteomyelitis R 2nd toe, s/p amputation 11/23/16. Wound culture with GBS and Strep viridans, but there were also GNR on the gram stain. Path margins negative for osteomyelitis. DM II, IR, with peripheral neuropathy CKD, stage 3 H/o breast cancer H/o PE on anticoagulation H/o tobaccoism, quit 5 months ago Loose stools, ? secondary to Unasyn Recommendation: I discussed with the patient that her bony margins were negative for osteomyelitis. I think we can treat her for a soft tissue infection only. If her incision does not heal or breaks down, then I would consider returning to IV antibiotics. For now, will change to amoxicillin 875mg po BID to complete a 14 day course. If her loose stools don't improve, then would check for C. difficile. Sepsis Assessment - Evaluation Sepsis screening result: No Definite Risk
[2016-11-27] MEDS: ENOXAPARIN 40 MG/0.4 ML INJECTION SQ SCH (08:56)
[2016-11-27] MEDS: SENNA + DOCUSATE TABLET PO SCH ×2 (08:58→21:27)
[2016-11-27] MEDS: ALLOPURINOL 100 MG TABLET PO SCH (08:59)
[2016-11-27] MEDS: GABAPENTIN 300 MG CAPSULE PO SCH ×3 (08:59→21:28)
[2016-11-27] MEDS: FUROSEMIDE 40 MG TABLET PO SCH (08:59)
[2016-11-27] MEDS: ROPINIROLE 1 MG TABLET PO SCH ×2 (08:59→21:28)
[2016-11-27] MEDS: Desvenlafaxine SR 50 MG TABLET PO SCH (08:59)
[2016-11-27] MEDS: INSULIN ASPART 100unit/ml INJECTION SQ SCH ×3 (09:00→18:49)
[2016-11-27] MEDS: LIDOCAINE 5% PATCH TOP SCH (09:03)
[2016-11-27] MEDS: AMOXICILLIN 875 MG TABLET PO SCH ×2 (11:51→21:28)
[2016-11-27] MEDS: FUROSEMIDE 40 MG/4 ML INJECTION IVP SCH (11:52)
[2016-11-27] MEDS ORDERED: WARFARIN 4 MG TABLET PO SCH (12:00)
[2016-11-27] MEDS ORDERED: OMEPRAZOLE 20 MG CAPSULE PO ONE (14:32)
[2016-11-27] MEDS ORDERED: ASPIRIN 325 MG TABLET PO ONE (14:32)
[2016-11-27] MEDS ORDERED: NITROGLYCERIN 0.4 MG SUBLINGUAL TABLET SL PRN (14:50)
[2016-11-27] MEDS ORDERED: MORPHINE SULFATE 10 MG SYRINGE IV PRN (14:52)
--- NOTE | 2016-11-27 15:04 | Progress Note ---
Subjective: I came in to see the patient today and she had just gotten back to her bed after going to the bathroom and having a small hard bowel movement. She said she was nauseated before she had a bowel movement and that has resolved. She does complain of pain in her upper abdomen, substernal area of her chest, and pain through to her back. She describes the chest and back pain as being a 7-1/ 2 on a scale of 0-10. She denies any shortness of breath. She states she had some pain up in her neck last night and is developing a little pain up into her neck today. She has not had pain in her upper back or chest before. She states she had a heart catheterization with Dr. Conn recently. On review of old records she had one 03/25/2016 and this showed only mild one-vessel coronary artery disease involving the LAD (30% stenosis). Normal LV systolic function with EF of 65%. She stated she thinks this chest and back pain might be related to her abdominal pain. On review of her meds, she has not been receiving her omeprazole which is a usual home meds. She is not diaphoretic. Vital signs now show blood pressure of 156/83, pulse 56, O2 sat 96% on room air. She does not have a fever. Objective Vital signs: Temperature 96.8 F 11/27/16 14:15 Pulse Rate 66 11/27/16 14:15 Respiratory Rate 24 11/27/16 14:15 Blood Pressure 156/83 H 11/27/16 14:15 Pulse Oximetry 95 11/27/16 14:15 Oxygen Delivery Method Room Air Oxygen Flow Rate 1.5 Rhythm: Normal Sinus Rhythm Height/Weight/BMI: Height 1.7 m Weight 136.4 kg Body Mass Index 47.7 Comments: GEN-alert, mild distress secondary to pain, HEENT-sclera anicteric, pupils are equal, oropharynx is moist NECK-supple CV-borderline bradycardic rate with irregular rhythm, no murmur CHEST-clear to auscultation bilaterally. No tenderness to palpation of the back. No skin lesions on the back ABD-soft, nontender, positive bowel sounds -no [place] EXT-no edema NEURO-alert and oriented 3, no focal deficits SKIN-warm and dry and without rashes Results - Labs CBC & Chem 7: 11/27/16 04:34 11/27/16 04:34 Labs: Vitamin B-12 was low at 182. Folate is normal at 3.6. Iron is low at 31, TIBC normal at 288, iron sat borderline low at 11 Microbiology Results: Microbiology 11/23/16 08:04 Toe,Second Right Gram Stain - Final 11/23/16 08:04 Toe,Second Right Superficial Wound Culture - Final Strep agalactiae - (Group B) Streptococcus viridans group Assessment and Plan (1) Osteomyelitis of toe of right foot Current visit: Yes Status: Acute 11/22/16 23:35 npo, surgical consult in am. zosyn, and vanco, pharmacy to dose, secondary to diabetic foot ulcer. (2) CKD (chronic kidney disease) stage 3, GFR 30-59 ml/min Current visit: Yes Status: Acute 11/22/16 23:37 with diabetes must be careful regarding renal toxic meds and hydration status. pharmacy to assist with dosing, ivf, repeat bmp in am. (3) DM type 2 (diabetes mellitus, type 2) Current visit: Yes Status: Acute 11/22/16 23:37 correctional plan, hold all other agents as npo (4) HTN (hypertension) Current visit: Yes Status: Acute 11/22/16 23:38 hold agents until confirmed that blood pressure adequately tolerate infected state, hold diuretics anyway (5) Severe sepsis Current visit: Yes Status: Acute Assessment and Plan: 11/27/2016-Dr. Cerna Impression Chest pain radiating through to the back associated with upper abdominal pain. She has not been receiving her usual omeprazole, so this could be GI in nature. She did have a heart catheter in March of last year with only mild disease of the LAD. Will rule out cardiac. PE is unlikely with the patient on Coumadin although mildly subtherapeutic. She is on Lovenox at DVT prophylaxis dose. She has history of PE one year ago. Acute on chronic hypoxic respiratory failure likely secondary to pulmonary edema -now on room air. Diuresis orally Severe sepsis secondary to osteomyelitis of the right toe-status post amputation 11/23/2016. Pathology from surgery showed margins without signs of infection. Dr. Sutherland has recommended 10 days of oral amoxicillin to complete a 14 day course of antibiotics. 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 Chronic low back pain History of PE, warfarin was restarted and she is on Lovenox for DVT prophylaxis. Increased fatigue over past several months, possibly related to anemia which is new. She had essentially normal hemoglobin back in March. TSH is normal. Plan As workup for chest pain, EKG was obtained which shows sinus bradycardia with a rate of 55. No ST-T wave changes. Telemetry was started. Will check a chest x- ray and abdominal x-ray. Troponin and lipase were ordered. When results are back , will discuss with Dr. Conn. Restart patient's omeprazole. Give GI cocktail. If pain not resolved will give nitroglycerin and/or morphine. Dr. Sutherland change the patient to amoxicillin orally today. She will need 10 more days. Possible dismissal to home versus snf unit this weekend. Continue current insulin for diabetes. Start subcutaneous B-12 for B-12 deficiency. Check Hemoccults regarding borderline iron deficiency. Start oral iron. May need workup regarding borderline iron deficiency anemia. Lipase is back in normal. Chest x-ray is normal. KUB shows nonobstructive, nonspecific bowel gas pattern. Minimal overall bowel gas and fluid-filled bowel loops cannot be excluded. Sepsis Assessment - Evaluation Sepsis screening result: No Definite Risk Hospital Course Summary Disclaimer: The visit summary below is not to be considered part of the above Progress Note. Hospital Course: 11/23/16 Hospital admission Patient admitted with severe sepsis and osteomyelitis of the second right toe with cellulitis. Continue broad-spectrum antibiotics with vancomycin and Zosyn due to diabetic foot infection. Surgical consultation initiated, call placed to Dr. Morales regarding surgical plans. High likelihood that second toe will require amputation. Baseline CRP to be obtained in the morning, A1c to be rechecked-last A1c 8.2 in June. Continue basal insulin with corrective scale insulin while nothing by mouth. Continue IV/PO narcotics for pain and home meds as appropriate. Anticipate greater than 2 days hospitalization due to need for IV antibiotics and supportive care. Patient will return to care of Dr. Rosenthal discharge. 11/24/16 Hospital day #2 Patient had right second toe amputation yesterday with Dr. Morales. Continues on broad-spectrum antibiotics with vancomycin and Zosyn. Continue basal insulin with corrective scale insulin for now. Once she starts eating regularly will reinstate routine mealtime insulin. Continue IV/PO narcotics for pain and home meds as appropriate 11/25/16 11:29 Hospital day #3 Continue broad-spectrum antibiotics with vancomycin and Zosyn due to diabetic foot infection. Continue basal insulin with corrective scale insulin for now. She is starting to eat. Monitor sugars closely and if sugars are consistently >200, will restart mealtime insulin. Given that she has crackles on lung exam and her weight is up almost 4 kg, obtain chest x-ray and restart her home Lasix and potassium. Continue IV/PO narcotics for pain and home meds as appropriate. 11/26/2016-I reviewed this chart, the patient history, and the [employer]'s/PA's documented findings as above. We discussed and formulated the assessment and plan as above with the additions below. I've seen and examined the patient independently.-Dr. Cerna The patient is seen in her room this afternoon. She denies shortness of breath currently but is on a couple of liters of oxygen. She denies any chest pain. She states she has used 3 pillows when she sleeps at night for a couple of years to help her breathe better. She states that her Lasix was decreased by Dr. Conn because she had been having lightheadedness. She has been requiring supplemental oxygen since admission, likely secondary to fluid overload. Her weight is 3.4 kg since admission. She was given IV Lasix yesterday and today in addition to her usual oral Lasix which was restarted yesterday. She had a normal ejection fraction on echocardiogram one year ago and EF was also normal on heart catheterization last winter. She is not noticed any difference in her lower extremity edema since that time. She had several bowel movements yesterday after medication for constipation. She states she is urinating without difficulties. The patient reports increasing fatigue over the past 3 months. She has not noticed chest pain during this time. We'll check a TSH and initiate anemia workup. On exam she is alert and in no acute distress. Chest is clear to auscultation anteriorly. Cardiovascular reveals a regular rate and rhythm without murmur. Abdomen is soft, obese, nontender with positive bowel sounds. Extremities reveal 2+ lower extremity in the right leg and +1 lower extremity edema in the left leg. Lab shows BNP of 3960. Blood sugars are ranging from 154-219. INR is 1.76 Regarding acute on chronic hypoxic respiratory failure, this is most likely secondary to pulmonary edema seen on chest x-ray yesterday. Continue with diuresis. If not improving with diuresis, may need further workup and possible consultation with Dr. Conn. Regarding diabetes, She is eating okay and blood sugars are trending up. Will restart insulin with meals. Regarding chronic kidney disease, creatinine is slowly rising and is 1.7 today. Will recheck tomorrow. Regarding anemia, will check iron studies, B-12 and folate. Regarding low back pain, patient states this is chronic but a little worse this hospitalization. She has history of scoliosis. We'll try Lidoderm patch. Regarding nocturnal hypoxemia, patient will likely need O2 at night at home and work up for sleep study. Regarding history of PE, warfarin was restarted and she is on Lovenox DVT prophylaxis. Sepsis has resolved. Regarding osteomyelitis, patient is on Unasyn and being followed by Dr. Sutherland. Awaiting pathology report to help determine how long patient will need antibiotics. Increasing fatigue over the past several months. Will check TSH. Also initiate anemia workup.
--- NOTE | 2016-11-27 15:05 | XRay Report ---
Indication: chest pain and upper back pain PROCEDURE: XR chest 1V: Encounter: Initial Comparison: November 25, 2016 Findings: Lungs are stable in appearance with continued interstitial prominence. No new consolidation. No pleural effusion or pneumothorax. Heart size and mediastinal contours are unchanged. Impression: Stable appearance of the chest. .
--- NOTE | 2016-11-27 15:06 | XRay Report ---
Indication: upper abd pain and chest pain PROCEDURE: XR KUB: Encounter: Initial Comparison: October 25, 2015. Findings: Exam is limited by exposure technique and patient body habitus. The bowel gas pattern is nonobstructive and nonspecific. Minimal overall bowel gas. The bony structures are grossly unremarkable. Impression: Nonobstructive nonspecific bowel gas pattern. Minimal overall bowel gas and fluid-filled bowel loops cannot be excluded. .
[2016-11-27] MEDS ORDERED: GI COCKTAIL 30 ML PO ONE (15:09)
[2016-11-27] MEDS: OMEPRAZOLE 20 MG CAPSULE PO SCH (16:19)
[2016-11-27] MEDS ORDERED: IODIXANOL 320mg/ml 100ml INJECTION IV ONE ×2 (16:21→16:22)
[2016-11-27] MEDS ORDERED: NS 100 ML ONE (16:21)
[2016-11-27] MEDS ORDERED: SALINE FLUSH 10ml SYRINGE ONE (16:22)
[2016-11-27] MEDS ORDERED: IODIXANOL 320mg/ml 50ml INJECTION IV ONE (16:31)
--- NOTE | 2016-11-27 16:32 | Cardiology Consult Note ---
History of Present Illness Consult date: 11/27/16 <Loretta Zazueta - 11/27/16 16:32> Requesting physician: Rosa Cerna <Loretta Zazueta - 11/27/16 21:29> Consult reason: chest pain <Loretta Zazueta - 11/27/16 16:32> Chief complaint: chest pain <Loretta Zazueta - 11/27/16 21:29> History of present illness: This is a 71 yo chronicly ill woman, admitted this hospitalization for toe amputation. She reports lying in bed this am with sudden onset abdominal pain that migrated up substernal, it was a cramping/pressure sensation. She was given a GI cocktail that improved the pain but denies a total resolution. ECG done at that time is SB with no acute ischemic changes. She underwent coronary angiography within the last year with mild CAD <30% stenosis. <Loretta Zazueta - 11/27/16 21:29> Review of Systems - Constitutional Constitutional: Absent: anorexia <Loretta Zazueta - 11/27/16 21:29> - EENMT Mouth/Throat: Absent: sore throat <Loretta Zazueta - 11/27/16 16:32> [facility] Patient Stated Medical History Cerebrovascular Accident Yes: minor right sided weakness and right facial droop Syncope Yes Dental Problems Yes Angina No Cardiac Arrhythmia No Congestive Heart Failure No Coronary Artery Disease No Heart Murmur No Hypertension No Hypotension No Myocardial Infarction No Rheumatic Fever No Valvular Heart Disease No Other Cardiology No: Recent Cath/stress test/echo with Dr. Conn. no negative results Asthma Yes Chronic Obstructive Pulmonary Yes Disease (COPD) Pulmonary Embolism Yes: hx Sleep Apnea Yes Diabetes Mellitus Type 1 Yes Diabetes Mellitus Type 2 Yes Gastroesophageal Reflux Yes: moderate Disease Hepatitis Yes: C Hx Incontinence Yes Hx Renal Disease Yes: stage 3 Clotting Problems Yes Osteoarthritis Yes Cellulitis Yes Anesthesia Reactions No Blood Transfusions No Chemotherapy No Malignant Hyperthermia No Other No Depression Yes Now No <Jose Antonio Conn - 11/30/16 13:35> Patient Stated Medical History Cerebrovascular Accident Yes: minor right sided weakness and right facial droop Syncope Yes Dental Problems Yes Angina No Cardiac Arrhythmia No Congestive Heart Failure No Coronary Artery Disease No Heart Murmur No Hypertension No Hypotension No Myocardial Infarction No Rheumatic Fever No Valvular Heart Disease No Other Cardiology No: Recent Cath/stress test/echo with Dr. Conn. no negative results Asthma Yes Chronic Obstructive Pulmonary Yes Disease (COPD) Pulmonary Embolism Yes: hx Sleep Apnea Yes Diabetes Mellitus Type 1 Yes Diabetes Mellitus Type 2 Yes Gastroesophageal Reflux Yes: moderate Disease Hepatitis Yes: C Hx Incontinence Yes Hx Renal Disease Yes: stage 3 Clotting Problems Yes Osteoarthritis Yes Cellulitis Yes Anesthesia Reactions No Blood Transfusions No Chemotherapy No Malignant Hyperthermia No Other No Depression Yes Now No <CarlitaLoretta L - 11/27/16 16:32> Medical History Updates: COPD. Gout. HL. Depr. CHF. Diabetic peripheral neuropathy. DM. Tinea cruris. GERD. Hypokalemia. Insomnia. Arrhythmia. RLS <Loretta Zazueta - 11/27/16 16:32> Surgical History: cholecystectomy, tubal ligation, breast lumpectomy cancer, ventral herniorrhaghy, bilateral total knee replacements Dr. Leos, Left shoulder anterior acromioplasty and open clavicular resection 09-04-10, normal colonoscopy 06-01-2008 Dr. Morales, EGD Irregular GE junction 06-01-2008 Dr. Morales, HEART CATH EF 65% and mild CAD in LAD 03-25-16 Dr. Conn. S/p R 2nd toe amputation 11/23/16 <Loretta Zazueta - 11/27/16 16:32> - Social History Current residence: Apartment/Private Home <Loretta Zazueta - 11/27/16 16:32> Medications Home Medications Medication Instructions Recorded Confirmed Type Allopurinol 100 mg PO DAILY #0 10/17/08 11/22/16 History Furosemide [Lasix] 40 mg PO DAILY #0 10/17/08 11/22/16 History Metoprolol Succinate 25 mg PO DAILY #0 10/17/08 11/22/16 History Omeprazole 20 mg PO DAILY #0 10/17/08 11/22/16 History Potassium Chloride [Klor-Con M20] 20 meq PO BID #0 10/17/08 11/22/16 History Quetiapine Fumarate [Seroquel] 100 mg PO HS #0 10/17/08 11/22/16 History Ropinirole [Requip] 1 mg PO BID #0 10/17/08 11/22/16 History Atorvastatin Calcium [Lipitor] 20 mg PO HS #0 09/03/10 11/22/16 History Gabapentin [Neurontin] 300 mg PO TID #0 09/03/10 11/22/16 History Hydrocodone/Acetaminophen 1 - 2 tab PO Q8HR PRN #0 10/25/15 11/22/16 History [Hydrocodon-Acetaminophn 10-325] Tizanidine HCl 2 mg PO DAILY #0 03/25/16 11/22/16 History Albuterol Neb (0.083%) [Proventil 2.5 mg AEROSOL Q6HR PRN 11/22/16 11/22/16 History Neb (0.083%)] Desvenlafaxine Sr [Pristiq] 50 mg PO DAILY 11/22/16 11/22/16 History Insulin Aspart [NovoLOG] 12 unit SQ TIDWM 11/22/16 11/22/16 History <Jose Antonio Conn - 11/30/16 13:35> Allergies Allergy/AdvReac Type Severity Reaction Status Date / Time codeine Allergy Unknown RASH Verified 11/22/16 20:29 prochlorperazine Allergy Unknown Verified 11/22/16 20:29 Sulfa (Sulfonamide Allergy Unknown Verified 11/22/16 20:29 Antibiotics) <Jose Antonio Conn - 11/30/16 13:35> Exam Vital signs: Temperature 96.4 F L 11/30/16 07:54 Pulse Rate 69 11/30/16 07:54 Respiratory Rate 16 11/30/16 07:54 Blood Pressure 138/54 11/30/16 07:54 Pulse Oximetry 95 11/30/16 07:54 Oxygen Delivery Method Room Air Oxygen Flow Rate 2 <Jose Antonio Conn - 11/30/16 13:35> Temperature 96.8 F 11/27/16 14:15 Pulse Rate 66 11/27/16 14:15 Respiratory Rate 24 11/27/16 14:15 Blood Pressure 156/83 H 11/27/16 14:15 Pulse Oximetry 95 11/27/16 14:15 Oxygen Delivery Method Room Air Oxygen Flow Rate 1.5 <Loretta Zazueta - 11/27/16 16:32> - Constitutional no acute distress <Loretta Zazueta - 11/27/16 16:32> - Routine HEENT Exam Head: Present: normocephalic <Stephanie Zazuetaca L - 11/27/16 16:32> Eye: Present: PERRL <Stephanie Zazuetaca L - 11/27/16 16:32> ENT: Present: mucous membranes moist <FrediStephanieLoretta L - 11/27/16 16:32> - Routine Neck Exam Absent: JVD, carotid bruit <Stephanie Zazuetaca L - 11/27/16 21:29> - Routine Chest/Breast/Axilla Exam Chest wall: Absent: tenderness <FrediStephanieLoretta L - 11/27/16 21:29> - Routine Respiratory Exam Present: decreased breath sounds <Stephanie Zazuetaca L - 11/27/16 21:29> - Routine Cardiovascular Exam Present: no murmur, bradycardia <Stephanie Zazuetaca L - 11/27/16 21:29> - Routine Abdominal Exam Present: normoactive bowel sounds <Stephanie Zazuetaca L - 11/27/16 21:29> - Routine Back/Spine/Pelvis Exam Back/Spine: Absent: full ROM <Stephanie Zazuetaca L - 11/27/16 21:29> - Routine Skin Exam Present: intact <Stephanie Zazuetaca L - 11/27/16 21:29> - Routine Neurological Exam Present: alert, oriented X3, moving all extremities <Stephanie Zazuetaca L - 21:29> - Routine Psychiatric Exam Present: normal affect, normal thought process <Stephanei Zazuetaca L - 11/27/16 21 :29> Results 11/30/16 03:55 11/30/16 03:55 <Jose Antonio Conn - 11/30/16 13:35> Cardiac Enzymes 11/30/16 Range/Units 03:55 AST 16 (14-36) U/L CBC 11/30/16 Range/Units 03:55 WBC 8.6 D (4.5-11.0) T/MM3 RBC 4.08 (4.00-5.20) M/MM3 Hgb 10.5 L D (12-16) GM/DL Hct 35.9 L D (36-46) % Plt Count 270 (130-400) T/MM3 Neut # 5.4 (1.8-7.7) T/MM3 Lymph # 2.3 (1-4.8) T/MM3 Boyle # 0.6 (0-0.8) T/MM3 Eos # 0.2 (0-0.5) T/MM3 Baso # 0.0 (0-0.2) T/MM3 Comprehensive Metabolic Panel 11/30/16 Range/Units 03:55 Sodium 145 H (134-144) MEQ/L Potassium 4.1 (3.6-5) MEQ/L Chloride 103 (98-107) MEQ/L Carbon Dioxide 30 (22-30) MEQ/L BUN 21.0 H (7-17) MG/DL Creatinine 1.4 H (0.7-1.2) MG/DL Glucose 84 (65-110) MG/DL Calcium 9.3 (8.4-10.2) MG/DL AST 16 (14-36) U/L ALT 26 (9-52) U/L Alkaline Phosphatase 124 (38-126) U/L Total Protein 7.4 (6.3-8.2) G/DL Albumin 3.6 (3.5-5.0) G/DL Intake and Output 11/29/16 11/30/16 11/30/16 22:59 06:59 14:59 Intake Total 540 / 540 200 / 200 Balance 540 / 540 200 / 200 Intake: Oral 540 / 540 200 / 200 Other: # Voids 1 1 # Bowel Movements 1 Weight 126 kg Patient Weight 12/01/16 06:59 Weight 126 kg <Jose Antonio Conn - 11/30/16 13:35> Cardiac Enzymes 11/27/16 Range/Units 14:42 Troponin I < 0.012 (0-0.12) ng/ml CBC 11/27/16 Range/Units 04:34 WBC 5.5 (4.5-11.0) T/MM3 RBC 3.49 L (4.00-5.20) M/MM3 Hgb 8.9 L (12-16) GM/DL Hct 31.1 L (36-46) % Plt Count 211 (130-400) T/MM3 Neut # 3.5 (1.8-7.7) T/MM3 Lymph # 1.3 (1-4.8) T/MM3 Boyle # 0.4 (0-0.8) T/MM3 Eos # 0.2 (0-0.5) T/MM3 Baso # 0.0 (0-0.2) T/MM3 Comprehensive Metabolic Panel 11/27/16 Range/Units 04:34 Sodium 142 (134-144) MEQ/L Potassium 4.1 (3.6-5) MEQ/L Chloride 106 (98-107) MEQ/L Carbon Dioxide 26 (22-30) MEQ/L BUN 25.0 H (7-17) MG/DL Creatinine 1.5 H D (0.7-1.2) MG/DL Glucose 95 (65-110) MG/DL Calcium 9.0 (8.4-10.2) MG/DL Intake and Output 11/27/16 11/27/16 11/27/16 06:59 14:59 22:59 Intake Total 450 / 450 620 / 620 Balance 450 / 450 620 / 620 Intake: IV 100 / 100 100 / 100 Unasyn 3 G In Normal 100 / 100 100 / 100 Saline 100 ml @ 200 mls/ hr IV Q8HR [facility] Rx#: [id number] Oral 350 / 350 520 / 520 Other: # Voids 1 # Bowel Movements 1 1 Weight 136.4 kg Patient Weight 11/28/16 06:59 Weight 136.4 kg <Loretta Zazueta - 11/27/16 16:32> Assessment and Plan (1) CKD (chronic kidney disease) stage 3, GFR 30-59 ml/min Current visit: Yes Status: Acute (2) DM type 2 (diabetes mellitus, type 2) Current visit: Yes Status: Acute (3) HTN (hypertension) Current visit: Yes Status: Acute (4) Chest pain Current visit: Yes Status: Acute <Jose Antonio Conn - 11/30/16 13:35> (1) CKD (chronic kidney disease) stage 3, GFR 30-59 ml/min Current visit: Yes Status: Acute (2) DM type 2 (diabetes mellitus, type 2) Current visit: Yes Status: Acute (3) HTN (hypertension) Current visit: Yes Status: Acute (4) Chest pain Current visit: Yes Status: Acute trend troponin, initial negative. No acute ECG changes, repeat ECG if pain returns. Not likely cardiac in etiology, will follow troponin. <Loretta Zazueta - 11/28/16 15:44> - Attestation Attestation Narrative: 11/30/16 13:35 Recommendation After examining the patient I agree with the above assessment. I am involved in the formulation of the patient's plan of care. <Jose Antonio Conn - 11/30/16 13:35> Hospital Course Summary Disclaimer: The visit summary below is not to be considered part of the above Progress Note. <Jose Antonio Conn - 11/30/16 13:35> The visit summary below is not to be considered part of the above Progress Note. <Loretta Zazueta - 11/27/16 16:32> Hospital Course: 11/23/16 Hospital admission Patient admitted with severe sepsis and osteomyelitis of the second right toe with cellulitis. Continue broad-spectrum antibiotics with vancomycin and Zosyn due to diabetic foot infection. Surgical consultation initiated, call placed to Dr. Morales regarding surgical plans. High likelihood that second toe will require amputation. Baseline CRP to be obtained in the morning, A1c to be rechecked-last A1c 8.2 in June. Continue basal insulin with corrective scale insulin while nothing by mouth. Continue IV/PO narcotics for pain and home meds as appropriate. Anticipate greater than 2 days hospitalization due to need for IV antibiotics and supportive care. Patient will return to care of Dr. Rosenthal discharge. 11/24/16 Hospital day #2 Patient had right second toe amputation yesterday with Dr. Morales. Continues on broad-spectrum antibiotics with vancomycin and Zosyn. Continue basal insulin with corrective scale insulin for now. Once she starts eating regularly will reinstate routine mealtime insulin. Continue IV/PO narcotics for pain and home meds as appropriate 11/25/16 11:29 Hospital day #3 Continue broad-spectrum antibiotics with vancomycin and Zosyn due to diabetic foot infection. Continue basal insulin with corrective scale insulin for now. She is starting to eat. Monitor sugars closely and if sugars are consistently >200, will restart mealtime insulin. Given that she has crackles on lung exam and her weight is up almost 4 kg, obtain chest x-ray and restart her home Lasix and potassium. Continue IV/PO narcotics for pain and home meds as appropriate. 11/26/2016-I reviewed this chart, the patient history, and the PROJECT ACCOUNTANT's/PA's documented findings as above. We discussed and formulated the assessment and plan as above with the additions below. I've seen and examined the patient independently.-Dr. Cerna The patient is seen in her room this afternoon. She denies shortness of breath currently but is on a couple of liters of oxygen. She denies any chest pain. She states she has used 3 pillows when she sleeps at night for a couple of years to help her breathe better. She states that her Lasix was decreased by Dr. Conn because she had been having lightheadedness. She has been requiring supplemental oxygen since admission, likely secondary to fluid overload. Her weight is 3.4 kg since admission. She was given IV Lasix yesterday and today in addition to her usual oral Lasix which was restarted yesterday. She had a normal ejection fraction on echocardiogram one year ago and EF was also normal on heart catheterization last winter. She is not noticed any difference in her lower extremity edema since that time. She had several bowel movements yesterday after medication for constipation. She states she is urinating without difficulties. The patient reports increasing fatigue over the past 3 months. She has not noticed chest pain during this time. We'll check a TSH and initiate anemia workup. On exam she is alert and in no acute distress. Chest is clear to auscultation anteriorly. Cardiovascular reveals a regular rate and rhythm without murmur. Abdomen is soft, obese, nontender with positive bowel sounds. Extremities reveal 2+ lower extremity in the right leg and +1 lower extremity edema in the left leg. Lab shows BNP of 3960. Blood sugars are ranging from 154-219. INR is 1.76 Regarding acute on chronic hypoxic respiratory failure, this is most likely secondary to pulmonary edema seen on chest x-ray yesterday. Continue with diuresis. If not improving with diuresis, may need further workup and possible consultation with Dr. Conn. Regarding diabetes, She is eating okay and blood sugars are trending up. Will restart insulin with meals. Regarding chronic kidney disease, creatinine is slowly rising and is 1.7 today. Will recheck tomorrow. Regarding anemia, will check iron studies, B-12 and folate. Regarding low back pain, patient states this is chronic but a little worse this hospitalization. She has history of scoliosis. We'll try Lidoderm patch. Regarding nocturnal hypoxemia, patient will likely need O2 at night at home and work up for sleep study. Regarding history of PE, warfarin was restarted and she is on Lovenox DVT prophylaxis. Sepsis has resolved. Regarding osteomyelitis, patient is on Unasyn and being followed by Dr. Sutherland. Awaiting pathology report to help determine how long patient will need antibiotics. Increasing fatigue over the past several months. Will check TSH. Also initiate anemia workup. <Loretta Zazueta - 11/27/16 16:32> Sepsis Assessment - Evaluation Sepsis screening result: No Definite Risk <Loretta Zazueta - 11/27/16 16:32>
[2016-11-27] MEDS: FERROUS SULFATE 324 MG TABLET PO SCH (17:17)
[2016-11-27] MEDS: CYANOCOBALAMIN (B-12) 1,000mcg/ml INJECTION SQ SCH (17:17)
[2016-11-27] MEDS ORDERED: NS 1,000 ML IV SCH (17:45)
[2016-11-27] MEDS: INSULIN REGULAR, HUMAN 100 UNIT/ML INJECTION SQ PRN (20:47)
[2016-11-27] MEDS: INSULIN DETEMIR 100unit/ml INJECTION SQ SCH (21:26)
[2016-11-27] MEDS: QUETIAPINE 50 MG TABLET PO SCH (21:27)
[2016-11-27] MEDS: ATORVASTATIN 20 MG TABLET PO SCH (21:28)
[2016-11-27] MEDS: LIDOCAINE PATCH REMOVAL TOP SCH (21:29)
[2016-11-28] MEDS: OMEPRAZOLE 20 MG CAPSULE PO SCH (05:48)
[2016-11-28] MEDS: HYDROCODONE/APAP 10 MG/325 MG TABLET PO PRN ×2 (07:41→15:30)
[2016-11-28] MEDS: ALBUTEROL 2.5mg/3ml (0.083%) NEB AEROSOL PRN (08:07)
[2016-11-28] MEDS: BUDESONIDE INH.SOLN 0.5mg/2ml NEB AEROSOL SCH ×2 (08:07→20:23)
[2016-11-28] MEDS: CYANOCOBALAMIN (B-12) 1,000mcg/ml INJECTION SQ SCH (08:42)
[2016-11-28] MEDS: ENOXAPARIN 40 MG/0.4 ML INJECTION SQ SCH (08:42)
[2016-11-28] MEDS: LIDOCAINE 5% PATCH TOP SCH (08:42)
[2016-11-28] MEDS: INSULIN ASPART 100unit/ml INJECTION SQ SCH ×3 (08:42→18:11)
[2016-11-28] MEDS: FUROSEMIDE 40 MG TABLET PO SCH (08:43)
[2016-11-28] MEDS: GABAPENTIN 300 MG CAPSULE PO SCH ×3 (08:43→22:02)
[2016-11-28] MEDS: FERROUS SULFATE 324 MG TABLET PO SCH (08:43)
[2016-11-28] MEDS: ROPINIROLE 1 MG TABLET PO SCH ×2 (08:44→22:02)
[2016-11-28] MEDS: Desvenlafaxine SR 50 MG TABLET PO SCH (08:44)
[2016-11-28] MEDS: ALLOPURINOL 100 MG TABLET PO SCH (08:44)
[2016-11-28] MEDS: AMOXICILLIN 875 MG TABLET PO SCH ×2 (08:44→22:01)
--- NOTE | 2016-11-28 08:45 | Pharmacy Consult ---
Pharmacy Consult-Warfarin - Laboratory Information 11/26/16 11/27/16 11/28/16 04:24 04:34 08:15 INR 1.76 H 1.67 H 1.70 H - Consult Information Ordered 4mg to be given at noon today. Will continue to monitor. Thank you.
[2016-11-28] MEDS: SENNA + DOCUSATE TABLET PO SCH (08:56)
[2016-11-28] MEDS ORDERED: WARFARIN 4 MG TABLET PO SCH (12:00)
[2016-11-28] MEDS: FUROSEMIDE 40 MG/4 ML INJECTION IVP SCH (12:19)
[2016-11-28] MEDS: SALINE FLUSH 10ml SYRINGE IVF PRN (13:56)
[2016-11-28] MEDS: HYDROMORPHONE 2 MG/ML INJECTION IVP PRN ×2 (13:56→22:03)
[2016-11-28] MEDS ORDERED: SENNA + DOCUSATE TABLET PO PRN (15:09)
--- NOTE | 2016-11-28 15:10 | Progress Note ---
Subjective: The patient states she is feeling a little bit better today. Chest pain has resolved. Abdominal pain has resolved. She still has some upper back and neck pain. She is now on room air without hypoxia. She is eating and drinking okay. She is having some diarrhea. She still feels a little weak. I discussed with her that she will need oral antibiotics for another 9 or 10 days but does not need IV antibiotics. She was happy about this and states she would want to go home with home health and does not want to go to prison. Objective Vital signs: Temperature 96.9 F 11/28/16 07:00 Pulse Rate 67 11/28/16 07:00 Respiratory Rate 16 11/28/16 08:07 Blood Pressure 125/57 11/28/16 07:00 Pulse Oximetry 93 11/28/16 10:45 Oxygen Delivery Method Nasal Cannula Oxygen Flow Rate 0.5 Rhythm: Normal Sinus Rhythm Height/Weight/BMI: Height 1.7 m Weight 133.2 kg Body Mass Index 47.7 Comments: GEN-alert, oriented, no acute distress HEENT-sclera anicteric, oropharynx is moist NECK-supple CV-regular rate and rhythm CHEST-clear to auscultation bilaterally ABD-soft, nontender with positive bowel sounds -no [place] EXT-no edema NEURO-no focal deficits SKIN-warm and dry Results - Labs CBC & Chem 7: 11/28/16 02:40 11/28/16 02:40 Microbiology Results: Microbiology 11/23/16 08:04 Toe,Second Right Gram Stain - Final 11/23/16 08:04 Toe,Second Right Superficial Wound Culture - Final Strep agalactiae - (Group B) Streptococcus viridans group - Imaging and Cardiology CT scan - chest Additional comments: CTA chest and abdomen revealed no signs of dissection. No acute PE. There is a questionable small area that could be an old PE versus scarring. Assessment and Plan (1) Osteomyelitis of toe of right foot Current visit: Yes Status: Acute 11/22/16 23:35 npo, surgical consult in am. lit and pilar, pharmacy to dose, secondary to diabetic foot ulcer. (2) CKD (chronic kidney disease) stage 3, GFR 30-59 ml/min Current visit: Yes Status: Acute 11/22/16 23:37 with diabetes must be careful regarding renal toxic meds and hydration status. pharmacy to assist with dosing, ivf, repeat bmp in am. (3) DM type 2 (diabetes mellitus, type 2) Current visit: Yes Status: Acute 11/22/16 23:37 correctional plan, hold all other agents as npo (4) HTN (hypertension) Current visit: Yes Status: Acute 11/22/16 23:38 hold agents until confirmed that blood pressure adequately tolerate infected state, hold diuretics anyway (5) Severe sepsis Current visit: Yes Status: Acute Assessment and Plan: 11/28/2016-Dr. Cerna Impression Chest pain radiating through to the back associated with upper abdominal pain- resolved. Troponins negative 3. EKG without ST changes. CTA negative for acute PE or dissection. Possible old small PE versus scar. She did have a heart catheter in March of last year with only mild disease of the LAD. Acute on chronic hypoxic respiratory failure likely secondary to pulmonary edema -now on room air. Severe sepsis secondary to osteomyelitis of the right toe-status post amputation 11/23/2016. Pathology from surgery showed margins without signs of infection. Dr. Sutherland has recommended oral amoxicillin to complete a 14 day course of antibiotics. 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 Chronic low back pain History of PE, warfarin was restarted and she is on Lovenox for DVT prophylaxis. Increased fatigue over past several months, possibly related to anemia which is new. She had essentially normal hemoglobin back in March. TSH is normal. She had one Hemoccult positive stool today but the nurse stated there was a little blood on the toilet tissue from where she's had some skin breakdown. Plan Overall, the patient is doing better today. Increase activity today. Possible discharge tomorrow. Check a basic metabolic profile tomorrow. Continue current insulin for diabetes but will decrease the dose secondary to borderline hypoglycemia. Continue subcutaneous B-12 for B-12 deficiency. Check Hemoccults regarding borderline iron deficiency. May need to do as outpatient. Continue oral iron. May need workup regarding borderline iron deficiency anemia. Sepsis Assessment - Evaluation Sepsis screening result: No Definite Risk Hospital Course Summary Disclaimer: The visit summary below is not to be considered part of the above Progress Note. Hospital Course: 11/23/16 Hospital admission Patient admitted with severe sepsis and osteomyelitis of the second right toe with cellulitis. Continue broad-spectrum antibiotics with vancomycin and Zosyn due to diabetic foot infection. Surgical consultation initiated, call placed to Dr. Morales regarding surgical plans. High likelihood that second toe will require amputation. Baseline CRP to be obtained in the morning, A1c to be rechecked-last A1c 8.2 in June. Continue basal insulin with corrective scale insulin while nothing by mouth. Continue IV/PO narcotics for pain and home meds as appropriate. Anticipate greater than 2 days hospitalization due to need for IV antibiotics and supportive care. Patient will return to care of Dr. Rosenthal discharge. 11/24/16 Hospital day #2 Patient had right second toe amputation yesterday with Dr. Morales. Continues on broad-spectrum antibiotics with vancomycin and Zosyn. Continue basal insulin with corrective scale insulin for now. Once she starts eating regularly will reinstate routine mealtime insulin. Continue IV/PO narcotics for pain and home meds as appropriate 11/25/16 11:29 Hospital day #3 Continue broad-spectrum antibiotics with vancomycin and Zosyn due to diabetic foot infection. Continue basal insulin with corrective scale insulin for now. She is starting to eat. Monitor sugars closely and if sugars are consistently >200, will restart mealtime insulin. Given that she has crackles on lung exam and her weight is up almost 4 kg, obtain chest x-ray and restart her home Lasix and potassium. Continue IV/PO narcotics for pain and home meds as appropriate. 11/26/2016-I reviewed this chart, the patient history, and the [employer]'s/PA's documented findings as above. We discussed and formulated the assessment and plan as above with the additions below. I've seen and examined the patient independently.-Dr. Cerna The patient is seen in her room this afternoon. She denies shortness of breath currently but is on a couple of liters of oxygen. She denies any chest pain. She states she has used 3 pillows when she sleeps at night for a couple of years to help her breathe better. She states that her Lasix was decreased by Dr. Conn because she had been having lightheadedness. She has been requiring supplemental oxygen since admission, likely secondary to fluid overload. Her weight is 3.4 kg since admission. She was given IV Lasix yesterday and today in addition to her usual oral Lasix which was restarted yesterday. She had a normal ejection fraction on echocardiogram one year ago and EF was also normal on heart catheterization last winter. She is not noticed any difference in her lower extremity edema since that time. She had several bowel movements yesterday after medication for constipation. She states she is urinating without difficulties. The patient reports increasing fatigue over the past 3 months. She has not noticed chest pain during this time. We'll check a TSH and initiate anemia workup. On exam she is alert and in no acute distress. Chest is clear to auscultation anteriorly. Cardiovascular reveals a regular rate and rhythm without murmur. Abdomen is soft, obese, nontender with positive bowel sounds. Extremities reveal 2+ lower extremity in the right leg and +1 lower extremity edema in the left leg. Lab shows BNP of 3960. Blood sugars are ranging from 154-219. INR is 1.76 Regarding acute on chronic hypoxic respiratory failure, this is most likely secondary to pulmonary edema seen on chest x-ray yesterday. Continue with diuresis. If not improving with diuresis, may need further workup and possible consultation with Dr. Conn. Regarding diabetes, She is eating okay and blood sugars are trending up. Will restart insulin with meals. Regarding chronic kidney disease, creatinine is slowly rising and is 1.7 today. Will recheck tomorrow. Regarding anemia, will check iron studies, B-12 and folate. Regarding low back pain, patient states this is chronic but a little worse this hospitalization. She has history of scoliosis. We'll try Lidoderm patch. Regarding nocturnal hypoxemia, patient will likely need O2 at night at home and work up for sleep study. Regarding history of PE, warfarin was restarted and she is on Lovenox DVT prophylaxis. Sepsis has resolved. Regarding osteomyelitis, patient is on Unasyn and being followed by Dr. Sutherland. Awaiting pathology report to help determine how long patient will need antibiotics. Increasing fatigue over the past several months. Will check TSH. Also initiate anemia workup. 11/27/2016-Dr. Cerna Impression Chest pain radiating through to the back associated with upper abdominal pain. She has not been receiving her usual omeprazole, so this could be GI in nature. She did have a heart catheter in March of last year with only mild disease of the LAD. Will rule out cardiac. PE is unlikely with the patient on Coumadin although mildly subtherapeutic. She is on Lovenox at DVT prophylaxis dose. She has history of PE one year ago. Acute on chronic hypoxic respiratory failure likely secondary to pulmonary edema -now on room air. Diuresis orally Severe sepsis secondary to osteomyelitis of the right toe-status post amputation 11/23/2016. Pathology from surgery showed margins without signs of infection. Dr. Sutherland has recommended 10 days of oral amoxicillin to complete a 14 day course of antibiotics. 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 Chronic low back pain History of PE, warfarin was restarted and she is on Lovenox for DVT prophylaxis. Increased fatigue over past several months, possibly related to anemia which is new. She had essentially normal hemoglobin back in March. TSH is normal. Plan As workup for chest pain, EKG was obtained which shows sinus bradycardia with a rate of 55. No ST-T wave changes. Telemetry was started. Will check a chest x- ray and abdominal x-ray. Troponin and lipase were ordered. When results are back , will discuss with Dr. Conn. Restart patient's omeprazole. Give GI cocktail. If pain not resolved will give nitroglycerin and/or morphine. Dr. Sutherland change the patient to amoxicillin orally today. She will need 10 more days. Possible dismissal to home versus prison unit this weekend. Continue current insulin for diabetes. Start subcutaneous B-12 for B-12 deficiency. Check Hemoccults regarding borderline iron deficiency. Start oral iron. May need workup regarding borderline iron deficiency anemia. Lipase is back in normal. Chest x-ray is normal. KUB shows nonobstructive, nonspecific bowel gas pattern. Minimal overall bowel gas and fluid-filled bowel loops cannot be excluded.
--- NOTE | 2016-11-28 15:47 | Cardiology Progress Note ---
Subjective Principal diagnosis: chest pain <Loretta Zazueta - 11/28/16 15:47> Interval history: Chest pain resolved, abdominal pain resolved. Pt continues to c/o upper back pain. <Loretta Zazueta - 11/29/16 22:47> Exam Vital signs: Temperature 96.4 F L 11/30/16 07:54 Pulse Rate 69 11/30/16 07:54 Respiratory Rate 16 11/30/16 07:54 Blood Pressure 138/54 11/30/16 07:54 Pulse Oximetry 95 11/30/16 07:54 Oxygen Delivery Method Room Air Oxygen Flow Rate 2 <Jose Antonio Conn - 11/30/16 13:38> Temperature 96.9 F 11/28/16 07:00 Pulse Rate 67 11/28/16 07:00 Respiratory Rate 16 11/28/16 08:07 Blood Pressure 125/57 11/28/16 07:00 Pulse Oximetry 93 11/28/16 10:45 Oxygen Delivery Method Nasal Cannula Oxygen Flow Rate 0.5 <Loretta Zazueta - 11/28/16 15:47> Narrative: Laboratory Results - last 48 hr 11/28/16 11/28/16 11/28/16 02:40 02:40 06:18 WBC 5.8 RBC 3.43 L Hgb 9.0 L Hct 30.3 L MCV 88.3 MCH 26.2 MCHC 29.7 L RDW Std Deviation 45.1 Plt Count 215 MPV 10.6 Immature Gran % (Auto) 0.2 Neut % (Auto) 61.1 Lymph % (Auto) 28.2 Ellis % (Auto) 6.4 Eos % (Auto) 3.8 Baso % (Auto) 0.3 Neut # 3.5 Lymph # 1.6 Ellis # 0.4 Eos # 0.2 Baso # 0.0 Abs Immat Gran (auto) 0.01 INR Turbidity < 20 Sodium 142 Potassium 4.0 Chloride 107 Carbon Dioxide 26 Anion Gap 9 BUN 23.0 H Creatinine 1.3 H D GFR Calculation 40 BUN/Creatinine Ratio 18 Glucose 66 Glucometer 72 Calculated Osmolality 275 Calcium 9.1 Icterus Index < 2 Troponin I < 0.012 Specimen Hemolysis < 15 Stool Occult Blood Stl Cyclospora species Stool Rotavirus A PCR Stool Adenovirus (PCR) Stool Astrovirus (PCR) Stool Campylobacter PCR Stl C.difficile Tox PCR Stool Cryptosporidium PCR Stl E.coli Shiga Toxins Stool E coli O157 PCR Stl Enterotoxigenic E PCR Stool EPEC (PCR) Stool EAEC (PCR) Stool Entamoeba (PCR) Stool Giardia Lamblia PCR Stool Salmonella PCR Stool Sapovirus (PCR) Stl P. shigelloides PCR Stl Shigella/EIEC PCR St Y.enterocolitica PCR Stool Vibrio (PCR) Stl Vibrio cholera PCR Stl Norovirus GI/GII PCR 11/28/16 11/28/16 11/28/16 08:15 10:04 12:49 WBC RBC Hgb Hct MCV MCH MCHC RDW Std Deviation Plt Count MPV Immature Gran % (Auto) Neut % (Auto) Lymph % (Auto) Ellis % (Auto) Eos % (Auto) Baso % (Auto) Neut # Lymph # Ellis # Eos # Baso # Abs Immat Gran (auto) INR 1.70 H Turbidity Sodium Potassium Chloride Carbon Dioxide Anion Gap BUN Creatinine GFR Calculation BUN/Creatinine Ratio Glucose Glucometer 154 Calculated Osmolality Calcium Icterus Index Troponin I Specimen Hemolysis Stool Occult Blood Positive A Stl Cyclospora species Stool Rotavirus A PCR Stool Adenovirus (PCR) Stool Astrovirus (PCR) Stool Campylobacter PCR Stl C.difficile Tox PCR Stool Cryptosporidium PCR Stl E.coli Shiga Toxins Stool E coli O157 PCR Stl Enterotoxigenic E PCR Stool EPEC (PCR) Stool EAEC (PCR) Stool Entamoeba (PCR) Stool Giardia Lamblia PCR Stool Salmonella PCR Stool Sapovirus (PCR) Stl P. shigelloides PCR Stl Shigella/EIEC PCR St Y.enterocolitica PCR Stool Vibrio (PCR) Stl Vibrio cholera PCR Stl Norovirus GI/GII PCR 11/28/16 11/28/16 11/28/16 14:11 19:54 21:05 WBC RBC Hgb Hct MCV MCH MCHC RDW Std Deviation Plt Count MPV Immature Gran % (Auto) Neut % (Auto) Lymph % (Auto) Ellis % (Auto) Eos % (Auto) Baso % (Auto) Neut # Lymph # Ellis # Eos # Baso # Abs Immat Gran (auto) INR Turbidity Sodium Potassium Chloride Carbon Dioxide Anion Gap BUN Creatinine GFR Calculation BUN/Creatinine Ratio Glucose Glucometer 116 219 206 Calculated Osmolality Calcium Icterus Index Troponin I Specimen Hemolysis Stool Occult Blood Stl Cyclospora species Stool Rotavirus A PCR Stool Adenovirus (PCR) Stool Astrovirus (PCR) Stool Campylobacter PCR Stl C.difficile Tox PCR Stool Cryptosporidium PCR Stl E.coli Shiga Toxins Stool E coli O157 PCR Stl Enterotoxigenic E PCR Stool EPEC (PCR) Stool EAEC (PCR) Stool Entamoeba (PCR) Stool Giardia Lamblia PCR Stool Salmonella PCR Stool Sapovirus (PCR) Stl P. shigelloides PCR Stl Shigella/EIEC PCR St Y.enterocolitica PCR Stool Vibrio (PCR) Stl Vibrio cholera PCR Stl Norovirus GI/GII PCR 11/29/16 11/29/16 11/29/16 04:03 06:00 10:22 WBC RBC Hgb Hct MCV MCH MCHC RDW Std Deviation Plt Count MPV Immature Gran % (Auto) Neut % (Auto) Lymph % (Auto) Ellis % (Auto) Eos % (Auto) Baso % (Auto) Neut # Lymph # Ellis # Eos # Baso # Abs Immat Gran (auto) INR 1.77 H Turbidity < 20 Sodium 142 Potassium 4.1 Chloride 105 Carbon Dioxide 29 Anion Gap 8 BUN 21.0 H Creatinine 1.4 H D GFR Calculation 37 BUN/Creatinine Ratio 15 Glucose 101 Glucometer 83 Calculated Osmolality 276 Calcium 8.9 Icterus Index < 2 Troponin I Specimen Hemolysis < 15 Stool Occult Blood Stl Cyclospora species Stool Rotavirus A PCR Stool Adenovirus (PCR) Stool Astrovirus (PCR) Stool Campylobacter PCR Stl C.difficile Tox PCR Stool Cryptosporidium PCR Stl E.coli Shiga Toxins Stool E coli O157 PCR Stl Enterotoxigenic E PCR Stool EPEC (PCR) Stool EAEC (PCR) Stool Entamoeba (PCR) Stool Giardia Lamblia PCR Stool Salmonella PCR Stool Sapovirus (PCR) Stl P. shigelloides PCR Stl Shigella/EIEC PCR St Y.enterocolitica PCR Stool Vibrio (PCR) Stl Vibrio cholera PCR Stl Norovirus GI/GII PCR 11/29/16 11/29/16 11/29/16 10:28 12:51 12:51 WBC RBC Hgb Hct MCV MCH MCHC RDW Std Deviation Plt Count MPV Immature Gran % (Auto) Neut % (Auto) Lymph % (Auto) Ellis % (Auto) Eos % (Auto) Baso % (Auto) Neut # Lymph # Ellis # Eos # Baso # Abs Immat Gran (auto) INR Turbidity Sodium Potassium Chloride Carbon Dioxide Anion Gap BUN Creatinine GFR Calculation BUN/Creatinine Ratio Glucose Glucometer 146 Calculated Osmolality Calcium Icterus Index Troponin I Specimen Hemolysis Stool Occult Blood Negative Stl Cyclospora species Negative Stool Rotavirus A PCR Negative Stool Adenovirus (PCR) Negative Stool Astrovirus (PCR) Negative Stool Campylobacter PCR Negative Stl C.difficile Tox PCR Negative Stool Cryptosporidium PCR Negative Stl E.coli Shiga Toxins Negative Stool E coli O157 PCR N/a Stl Enterotoxigenic E PCR Negative Stool EPEC (PCR) Negative Stool EAEC (PCR) Negative Stool Entamoeba (PCR) Negative Stool Giardia Lamblia PCR Negative Stool Salmonella PCR Negative Stool Sapovirus (PCR) Negative Stl P. shigelloides PCR Negative Stl Shigella/EIEC PCR Negative St Y.enterocolitica PCR Negative Stool Vibrio (PCR) Negative Stl Vibrio cholera PCR Negative Stl Norovirus GI/GII PCR Negative 11/29/16 11/29/16 14:12 19:55 WBC RBC Hgb Hct MCV MCH MCHC RDW Std Deviation Plt Count MPV Immature Gran % (Auto) Neut % (Auto) Lymph % (Auto) Ellis % (Auto) Eos % (Auto) Baso % (Auto) Neut # Lymph # Ellis # Eos # Baso # Abs Immat Gran (auto) INR Turbidity Sodium Potassium Chloride Carbon Dioxide Anion Gap BUN Creatinine GFR Calculation BUN/Creatinine Ratio Glucose Glucometer 103 197 Calculated Osmolality Calcium Icterus Index Troponin I Specimen Hemolysis Stool Occult Blood Stl Cyclospora species Stool Rotavirus A PCR Stool Adenovirus (PCR) Stool Astrovirus (PCR) Stool Campylobacter PCR Stl C.difficile Tox PCR Stool Cryptosporidium PCR Stl E.coli Shiga Toxins Stool E coli O157 PCR Stl Enterotoxigenic E PCR Stool EPEC (PCR) Stool EAEC (PCR) Stool Entamoeba (PCR) Stool Giardia Lamblia PCR Stool Salmonella PCR Stool Sapovirus (PCR) Stl P. shigelloides PCR Stl Shigella/EIEC PCR St Y.enterocolitica PCR Stool Vibrio (PCR) Stl Vibrio cholera PCR Stl Norovirus GI/GII PCR <Loretta Zazueta L - 11/29/16 22:47> - Constitutional no acute distress <MaddyStephanie ponceca L - 11/29/16 22:47> - Routine HEENT Exam Head: Present: normocephalic, atraumatic <Loretta Zazueta L - 11/29/16 22:47> ENT: Present: mucous membranes moist <Loretta Zazueta L - 11/29/16 22:47> - Routine Neck Exam Absent: JVD, carotid bruit <Loretta Zazueta L - 11/29/16 22:47> - Routine Respiratory Exam Present: CTA bilaterally <Loretta Zazueta L - 11/29/16 22:47> - Routine Cardiovascular Exam Present: RRR, murmur <Stephanie Zazuetaca L - 11/29/16 22:47> - Routine Abdominal Exam Present: normoactive bowel sounds <Loretta Zazueta L - 11/29/16 22:47> - Routine Skin Exam Present: intact <Loretta Zazueta L - 11/29/16 22:47> Progress Note-A&P (1) CKD (chronic kidney disease) stage 3, GFR 30-59 ml/min Status: Acute Current Visit: Yes (2) DM type 2 (diabetes mellitus, type 2) Status: Acute Current Visit: Yes (3) HTN (hypertension) Status: Acute Current Visit: Yes (4) Chest pain Status: Acute Current Visit: Yes <FabienJose Antonio - 11/30/16 13:38> (1) CKD (chronic kidney disease) stage 3, GFR 30-59 ml/min Status: Acute Current Visit: Yes (2) DM type 2 (diabetes mellitus, type 2) Status: Acute Current Visit: Yes (3) HTN (hypertension) Status: Acute Current Visit: Yes (4) Chest pain Status: Acute Assessment and plan: troponin negative x3. CT scan negative for dissection or PE. Pain resolved. Very low suspicion of cardiac etiology. Continue to treat CAD risk with ASA, statin. Follow with Fabien as outpatient. Current Visit: Yes <Loretta Zazueta - 11/29/16 22:42> - Time Spent With Patient Total time spent is greater than 50% in coordination of care (as documented) at patient's floor/unit and/or counseling patient: <FabienJose Antonio - 11/30/16 13:38> Total time spent is greater than 50% in coordination of care (as documented) at patient's floor/unit and/or counseling patient: <Loretta Zazueta - 11/28/16 15:47> less than 15 minutes <Loretta Zazueta - 11/29/16 22:47> - Attestation Attestation Narrative: Recommendation After examining the patient I agree with the above assessment. I am involved in the formulation of the patient's plan of care. <Jose Antonio Conn - 11/30/16 13:38> Sepsis Assessment - Evaluation Sepsis screening result: No Definite Risk <Loretta Zazueta - 11/28/16 15:47> Hospital Course Summary Disclaimer: The visit summary below is not to be considered part of the above Progress Note. <Jose Antonio Conn - 11/30/16 13:38> The visit summary below is not to be considered part of the above Progress Note. <Loretta Zazueta - 11/28/16 15:47> Hospital Course: 11/23/16 Hospital admission Patient admitted with severe sepsis and osteomyelitis of the second right toe with cellulitis. Continue broad-spectrum antibiotics with vancomycin and Zosyn due to diabetic foot infection. Surgical consultation initiated, call placed to Dr. Morales regarding surgical plans. High likelihood that second toe will require amputation. Baseline CRP to be obtained in the morning, A1c to be rechecked-last A1c 8.2 in June. Continue basal insulin with corrective scale insulin while nothing by mouth. Continue IV/PO narcotics for pain and home meds as appropriate. Anticipate greater than 2 days hospitalization due to need for IV antibiotics and supportive care. Patient will return to care of Dr. Rosenthal discharge. 11/24/16 Hospital day #2 Patient had right second toe amputation yesterday with Dr. Morales. Continues on broad-spectrum antibiotics with vancomycin and Zosyn. Continue basal insulin with corrective scale insulin for now. Once she starts eating regularly will reinstate routine mealtime insulin. Continue IV/PO narcotics for pain and home meds as appropriate 11/25/16 11:29 Hospital day #3 Continue broad-spectrum antibiotics with vancomycin and Zosyn due to diabetic foot infection. Continue basal insulin with corrective scale insulin for now. She is starting to eat. Monitor sugars closely and if sugars are consistently >200, will restart mealtime insulin. Given that she has crackles on lung exam and her weight is up almost 4 kg, obtain chest x-ray and restart her home Lasix and potassium. Continue IV/PO narcotics for pain and home meds as appropriate. 11/26/2016-I reviewed this chart, the patient history, and the [employer]'s/PA's documented findings as above. We discussed and formulated the assessment and plan as above with the additions below. I've seen and examined the patient independently.-Dr. Cerna The patient is seen in her room this afternoon. She denies shortness of breath currently but is on a couple of liters of oxygen. She denies any chest pain. She states she has used 3 pillows when she sleeps at night for a couple of years to help her breathe better. She states that her Lasix was decreased by Dr. Conn because she had been having lightheadedness. She has been requiring supplemental oxygen since admission, likely secondary to fluid overload. Her weight is 3.4 kg since admission. She was given IV Lasix yesterday and today in addition to her usual oral Lasix which was restarted yesterday. She had a normal ejection fraction on echocardiogram one year ago and EF was also normal on heart catheterization last winter. She is not noticed any difference in her lower extremity edema since that time. She had several bowel movements yesterday after medication for constipation. She states she is urinating without difficulties. The patient reports increasing fatigue over the past 3 months. She has not noticed chest pain during this time. We'll check a TSH and initiate anemia workup. On exam she is alert and in no acute distress. Chest is clear to auscultation anteriorly. Cardiovascular reveals a regular rate and rhythm without murmur. Abdomen is soft, obese, nontender with positive bowel sounds. Extremities reveal 2+ lower extremity in the right leg and +1 lower extremity edema in the left leg. Lab shows BNP of 3960. Blood sugars are ranging from 154-219. INR is 1.76 Regarding acute on chronic hypoxic respiratory failure, this is most likely secondary to pulmonary edema seen on chest x-ray yesterday. Continue with diuresis. If not improving with diuresis, may need further workup and possible consultation with Dr. Conn. Regarding diabetes, She is eating okay and blood sugars are trending up. Will restart insulin with meals. Regarding chronic kidney disease, creatinine is slowly rising and is 1.7 today. Will recheck tomorrow. Regarding anemia, will check iron studies, B-12 and folate. Regarding low back pain, patient states this is chronic but a little worse this hospitalization. She has history of scoliosis. We'll try Lidoderm patch. Regarding nocturnal hypoxemia, patient will likely need O2 at night at home and work up for sleep study. Regarding history of PE, warfarin was restarted and she is on Lovenox DVT prophylaxis. Sepsis has resolved. Regarding osteomyelitis, patient is on Unasyn and being followed by Dr. Sutherland. Awaiting pathology report to help determine how long patient will need antibiotics. Increasing fatigue over the past several months. Will check TSH. Also initiate anemia workup. <Loretta Zazueta - 11/28/16 15:47>
[2016-11-28] MEDS: ATORVASTATIN 20 MG TABLET PO SCH (22:02)
[2016-11-28] MEDS: INSULIN DETEMIR 100unit/ml INJECTION SQ SCH (22:02)
[2016-11-28] MEDS: QUETIAPINE 50 MG TABLET PO SCH (22:02)
[2016-11-28] MEDS: INSULIN REGULAR, HUMAN 100 UNIT/ML INJECTION SQ PRN (22:03)
[2016-11-28] MEDS: LIDOCAINE PATCH REMOVAL TOP SCH (22:04)
[2016-11-29] MEDS: HYDROCODONE/APAP 10 MG/325 MG TABLET PO PRN ×3 (00:37→20:21)
[2016-11-29] MEDS: OMEPRAZOLE 20 MG CAPSULE PO SCH (06:48)
[2016-11-29] MEDS: SALINE FLUSH 10ml SYRINGE IVF PRN (06:48)
[2016-11-29] MEDS: BUDESONIDE INH.SOLN 0.5mg/2ml NEB AEROSOL SCH ×2 (09:20→20:01)
[2016-11-29] MEDS: INSULIN ASPART 100unit/ml INJECTION SQ SCH ×3 (09:26→17:38)
[2016-11-29] MEDS: CYANOCOBALAMIN (B-12) 1,000mcg/ml INJECTION SQ SCH (09:27)
[2016-11-29] MEDS: LIDOCAINE 5% PATCH TOP SCH (09:28)
[2016-11-29] MEDS: FUROSEMIDE 40 MG TABLET PO SCH (09:28)
[2016-11-29] MEDS: FERROUS SULFATE 324 MG TABLET PO SCH (09:28)
[2016-11-29] MEDS: AMOXICILLIN 875 MG TABLET PO SCH ×2 (09:28→20:20)
[2016-11-29] MEDS: GABAPENTIN 300 MG CAPSULE PO SCH ×3 (09:29→20:20)
[2016-11-29] MEDS: ROPINIROLE 1 MG TABLET PO SCH ×2 (09:29→20:20)
[2016-11-29] MEDS: ENOXAPARIN 40 MG/0.4 ML INJECTION SQ SCH (09:29)
[2016-11-29] MEDS: Desvenlafaxine SR 50 MG TABLET PO SCH (09:29)
[2016-11-29] MEDS: ALLOPURINOL 100 MG TABLET PO SCH (09:30)
--- NOTE | 2016-11-29 10:30 | CT Scan Report ---
Indication: chest and upper back pain, hx of PE PROCEDURE: CT angio pulm emb/aorta chest: Encounter: Initial Comparison: Chest x-ray from same date and CT angiogram of the chest dated October 28, 2015 Technique: Axial CT angiography of the chest, abdomen and pelvis for aorta was performed with and without contrast. Coronal and sagittal MIP reconstructed images were created and reviewed. Three-dimensional surface shaded volume rendered imaging of the aorta and arterial vasculature was created by the technologist on a dedicated workstation under the direction of the interpreting radiologist and reviewed. CT angiography the chest for pulmonary embolus was also performed with contrast with coronal and sagittal MIP reconstructed images created and reviewed. Contrast: Omnipaque 350 120mL Automated Exposure Control and Iterative Reconstruction dose reducing techniques were utilized. Findings: CT angiogram of the chest for PE: Exam is diagnostic to only the segmental pulmonary arterial level due to contrast bolus timing. No large or central pulmonary embolus identified. The distal segmental and subsegmental pulmonary artery branches cannot be well evaluated. There is a tiny area of differential low attenuation within a single right lower lobe segmental pulmonary artery branch which probably represents sequela of old thrombus as there were pulmonary emboli in this location on the comparison exam in 2015. Lung windows show trace right pleural effusion and minimal dependent atelectasis. No pneumothorax or focal consolidative pneumonia. No pulmonary masses. The central airways are patent. Mildly enlarged thyroid gland. No axillary adenopathy. Increased number of small mediastinal lymph nodes which are not pathologically enlarged. Heart size is normal. No pericardial effusion. CT angiogram of the chest for aorta: Noncontrast images show no evidence of intramural hematoma and only mild atherosclerotic plaque. Postcontrast images show no evidence of aortic aneurysm or dissection. No significant stenosis identified. Please see the above report for additional details of the chest findings. CT angiogram of the abdomen and pelvis for aorta: Noncontrast images show no significant findings. Postcontrast images show no evidence of aortic aneurysm or dissection. Atherosclerotic plaque causing mild stenosis of both renal artery origins. Significant attenuation artifact due to patient body habitus. The arterial phase liver is mildly enlarged but shows no obvious mass or bile duct dilatation. The spleen is unremarkable. Pancreas is difficult to visualize as it is fatty replaced and there is significant artifact in this area. Kidneys show no obvious mass. No bowel obstruction. Bladder is grossly normal. Visualized uterus is unremarkable. Bone windows show degenerative changes and scoliosis in the spine. Impression: CTA of the chest for PE: No large or central pulmonary embolus. Small area of residual chronic clot in a right lower lobe pulmonary artery branch. No focal pneumonia. CT angiogram of the chest for aorta: No acute abnormality or acute aortic syndrome. CT angiogram of the abdomen and pelvis for aorta: No evidence of acute aortic abnormality or acute disease process seen. There is a preliminary report by [facility]. .
--- NOTE | 2016-11-29 11:36 | Progress Note ---
<LocoDiana Reinaldo - Last Filed: 11/29/16 11:33> Subjective: Lauren is seen today in follow up. She reports that she continues to have "diarrhea". Reports stool is green, loose. No further abdominal or epigastric pain. Denies any fever. No N/V. States that diarrhea onset was "when I came in." Is S/P Lap Holly. She did have a +FOB yesterday, but is noted to have irritation around rectum per nursing report. She does not report other concerns today. Objective Vital signs: Temperature 96.0 F L 11/29/16 07:34 Pulse Rate 63 11/29/16 07:34 Respiratory Rate 12 11/29/16 09:21 Blood Pressure 138/67 11/29/16 07:34 Pulse Oximetry 97 11/29/16 09:21 Oxygen Delivery Method Room Air Oxygen Flow Rate 2 Rhythm: Normal Sinus Rhythm Height/Weight/BMI: Height 1.7 m Weight 130 kg Body Mass Index 47.7 - Constitutional Present: no acute distress, well nourished, well developed, obese - Routine HEENT Exam Head: Present: normocephalic, atraumatic Eye: Present: EOMI, PERRL, normal accommodation ENT: Present: mucous membranes moist - Routine Respiratory Exam Present: decreased breath sounds, CTA bilaterally. Absent: accessory muscle use , dyspnea, wheezes, crackles - Routine Cardiovascular Exam Present: RRR, S1, S2 Comments: Chronic vascular insufficiency changes to LE bilaterally. - Routine Abdominal Exam Present: soft, non tender, distended. Absent: normoactive bowel sounds (BS are quiet x 4 quad.) - Routine Extremities Exam Present: edema (Trace LE), amputation (Right second toe is ambutated. Dressing is C/D/I. She is concerned about left second toe. Pinpoint scabbed areas on great toe and second toe of left foot. No drainage, redness, warmth or visible open areas. ) - Routine Back/Spine/Pelvis Exam Back/Spine: Present: full ROM - Routine Musculoskeletal Exam Musculoskeletal: Present: no clubbing or cyanosis, normal strength - Routine Skin Exam Present: dry, warm - Routine Neurological Exam Present: alert, oriented X3, moving all extremities - Routine Psychiatric Exam Present: normal affect, cooperative Results - Labs CBC & Chem 7: 11/28/16 02:40 11/29/16 04:03 Microbiology Results: Microbiology 11/23/16 08:04 Toe,Second Right Gram Stain - Final 11/23/16 08:04 Toe,Second Right Superficial Wound Culture - Final Strep agalactiae - (Group B) Streptococcus viridans group Assessment and Plan (1) Osteomyelitis of toe of right foot Current visit: Yes Status: Acute 11/22/16 23:35 npo, surgical consult in am. zosyn, and henryo, pharmacy to dose, secondary to diabetic foot ulcer. (2) CKD (chronic kidney disease) stage 3, GFR 30-59 ml/min Current visit: Yes Status: Acute 11/22/16 23:37 with diabetes must be careful regarding renal toxic meds and hydration status. pharmacy to assist with dosing, ivf, repeat bmp in am. (3) DM type 2 (diabetes mellitus, type 2) Current visit: Yes Status: Acute 11/22/16 23:37 correctional plan, hold all other agents as npo (4) HTN (hypertension) Current visit: Yes Status: Acute 11/22/16 23:38 hold agents until confirmed that blood pressure adequately tolerate infected state, hold diuretics anyway (5) Severe sepsis Current visit: Yes Status: Acute DVT Prophylaxis: Lovenox, Coumadin GI Prophylaxis: Protonix (Omeprazole) Resuscitation Status: Full Code Assessment and Plan: Impression Chest pain, resolved. Acute on chronic hypoxic respiratory failure likely secondary to pulmonary edema -now on room air. Severe sepsis secondary to osteomyelitis of the right toe-status post amputation 11/23/2016. Pathology from surgery showed margins without signs of infection. Dr. Sutherland has recommended oral amoxicillin to complete a 14 day course of antibiotics. 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 Chronic low back pain History of PE, warfarin was restarted and she is on Lovenox for DVT prophylaxis. Chronic Fatigue, NOS Diarrhea GERD Plan 11/29/16 Patient reports that chest pain is resolved. Continue PPI. CV consulted. Recent fairly normal heart cath. Off O2 and doing well, no SOA. Continue daily Lasix. Sepsis is resolved- continue Amoxil for total of 2 weeks of antibiotics. (d#10) T2DM- BG is well controlled. Continue insulin. Anemia remains- concern for FOB. Repeat hemoccult today. Diarrhea- Assess stool panel, FOB. Add cholestyramine for diarrhea, PRN. She reports that diarrhea is bilious in nature. Hx of PE- CTA negative. Warfarin restarted. Pharmacy following. Overall, doing well. Potentially home soon if stool cx is negative. - Time spent with patient 25 - 35 minutes Sepsis Assessment - Evaluation Sepsis screening result: No Definite Risk Hospital Course Summary Disclaimer: The visit summary below is not to be considered part of the above Progress Note. Hospital Course: 11/23/16 Hospital admission Patient admitted with severe sepsis and osteomyelitis of the second right toe with cellulitis. Continue broad-spectrum antibiotics with vancomycin and Zosyn due to diabetic foot infection. Surgical consultation initiated, call placed to Dr. Morales regarding surgical plans. High likelihood that second toe will require amputation. Baseline CRP to be obtained in the morning, A1c to be rechecked-last A1c 8.2 in June. Continue basal insulin with corrective scale insulin while nothing by mouth. Continue IV/PO narcotics for pain and home meds as appropriate. Anticipate greater than 2 days hospitalization due to need for IV antibiotics and supportive care. Patient will return to care of Dr. Rosenthal discharge. 11/24/16 Hospital day #2 Patient had right second toe amputation yesterday with Dr. Morales. Continues on broad-spectrum antibiotics with vancomycin and Zosyn. Continue basal insulin with corrective scale insulin for now. Once she starts eating regularly will reinstate routine mealtime insulin. Continue IV/PO narcotics for pain and home meds as appropriate 11/25/16 11:29 Hospital day #3 Continue broad-spectrum antibiotics with vancomycin and Zosyn due to diabetic foot infection. Continue basal insulin with corrective scale insulin for now. She is starting to eat. Monitor sugars closely and if sugars are consistently >200, will restart mealtime insulin. Given that she has crackles on lung exam and her weight is up almost 4 kg, obtain chest x-ray and restart her home Lasix and potassium. Continue IV/PO narcotics for pain and home meds as appropriate. 11/26/2016-I reviewed this chart, the patient history, and the [employer]'s/PA's documented findings as above. We discussed and formulated the assessment and plan as above with the additions below. I've seen and examined the patient independently.-Dr. Cerna The patient is seen in her room this afternoon. She denies shortness of breath currently but is on a couple of liters of oxygen. She denies any chest pain. She states she has used 3 pillows when she sleeps at night for a couple of years to help her breathe better. She states that her Lasix was decreased by Dr. Conn because she had been having lightheadedness. She has been requiring supplemental oxygen since admission, likely secondary to fluid overload. Her weight is 3.4 kg since admission. She was given IV Lasix yesterday and today in addition to her usual oral Lasix which was restarted yesterday. She had a normal ejection fraction on echocardiogram one year ago and EF was also normal on heart catheterization last winter. She is not noticed any difference in her lower extremity edema since that time. She had several bowel movements yesterday after medication for constipation. She states she is urinating without difficulties. The patient reports increasing fatigue over the past 3 months. She has not noticed chest pain during this time. We'll check a TSH and initiate anemia workup. On exam she is alert and in no acute distress. Chest is clear to auscultation anteriorly. Cardiovascular reveals a regular rate and rhythm without murmur. Abdomen is soft, obese, nontender with positive bowel sounds. Extremities reveal 2+ lower extremity in the right leg and +1 lower extremity edema in the left leg. Lab shows BNP of 3960. Blood sugars are ranging from 154-219. INR is 1.76 Regarding acute on chronic hypoxic respiratory failure, this is most likely secondary to pulmonary edema seen on chest x-ray yesterday. Continue with diuresis. If not improving with diuresis, may need further workup and possible consultation with Dr. Conn. Regarding diabetes, She is eating okay and blood sugars are trending up. Will restart insulin with meals. Regarding chronic kidney disease, creatinine is slowly rising and is 1.7 today. Will recheck tomorrow. Regarding anemia, will check iron studies, B-12 and folate. Regarding low back pain, patient states this is chronic but a little worse this hospitalization. She has history of scoliosis. We'll try Lidoderm patch. Regarding nocturnal hypoxemia, patient will likely need O2 at night at home and work up for sleep study. Regarding history of PE, warfarin was restarted and she is on Lovenox DVT prophylaxis. Sepsis has resolved. Regarding osteomyelitis, patient is on Unasyn and being followed by Dr. Sutherland. Awaiting pathology report to help determine how long patient will need antibiotics. Increasing fatigue over the past several months. Will check TSH. Also initiate anemia workup. 11/29/16 11:45 11/29/16 Patient reports that chest pain is resolved. Continue PPI. CV consulted. Recent fairly normal heart cath. Off O2 and doing well, no SOA. Continue daily Lasix. Sepsis is resolved- continue Amoxil for total of 2 weeks of antibiotics. (d#10) T2DM- BG is well controlled. Continue insulin. Anemia remains- concern for FOB. Repeat hemoccult today. Diarrhea- Assess stool panel, FOB. Add cholestyramine for diarrhea, PRN. She reports that diarrhea is bilious in nature. Hx of PE- CTA negative. Warfarin restarted. Pharmacy following. Overall, doing well. Potentially home soon if stool cx is negative. <Rosa Cerna - Last Filed: 11/29/16 15:33> Objective Vital signs: Temperature 97.0 F 11/29/16 12:00 Pulse Rate 66 11/29/16 12:00 Respiratory Rate 18 11/29/16 12:00 Blood Pressure 163/88 H 11/29/16 12:00 Pulse Oximetry 96 11/29/16 12:00 Oxygen Delivery Method Room Air Oxygen Flow Rate 2 Height/Weight/BMI: Height 1.7 m Weight 130 kg Body Mass Index 47.7 Results - Labs CBC & Chem 7: 11/28/16 02:40 11/29/16 04:03 Microbiology Results: Microbiology 11/23/16 08:04 Toe,Second Right Gram Stain - Final 11/23/16 08:04 Toe,Second Right Superficial Wound Culture - Final Strep agalactiae - (Group B) Streptococcus viridans group Assessment and Plan (1) Osteomyelitis of toe of right foot Current visit: Yes Status: Acute (2) CKD (chronic kidney disease) stage 3, GFR 30-59 ml/min Current visit: Yes Status: Acute (3) DM type 2 (diabetes mellitus, type 2) Current visit: Yes Status: Acute (4) HTN (hypertension) Current visit: Yes Status: Acute (5) Severe sepsis Current visit: Yes Status: Acute Assessment and Plan: 11/29/2016-I reviewed this chart, the patient history, and the [employer]'s/PA's documented findings as above. We discussed and formulated the assessment and plan as above with the additions below.-Dr. Cerna Patient complains of lower abdominal pain. She continues to have diarrhea. GI panel and repeat Hemoccult are negative. She denies any chest pain. She continues to have back pain in the upper and lower back. Lidoderm patch was started for low back pain but she states that hasn't helped. We'll discontinue this. She is currently off of oxygen. She is worried about her left second toe becoming infected. On exam she is alert and in no acute distress. Chest is clear to auscultation. Cardiovascular reveals regular rate and rhythm. Abdomen is soft and nontender with positive bowel sounds. Extremities reveal trace edema. We'll continue with current treatment. Pressure is mildly elevated and continued to watch for now on her usual metoprolol. Likely DC to home tomorrow with home health. Hospital Course Summary Disclaimer: The visit summary below is not to be considered part of the above Progress Note.
[2016-11-29] MEDS ORDERED: CHOLESTYRAMINE LIGHT 4 G PACKET PO PRN (11:38)
--- NOTE | 2016-11-29 11:47 | Pharmacy Consult ---
Pharmacy Consult-Warfarin - Laboratory Information 11/26/16 11/27/16 11/28/16 04:24 04:34 08:15 INR 1.76 H 1.67 H 1.70 H 11/29/16 10:22 INR 1.77 H - Consult Information Ordered warfarin 5mg po for noon today. Will continue to monitor. Thank you.
[2016-11-29] MEDS ORDERED: WARFARIN 5 MG TABLET PO SCH (12:00)
[2016-11-29] MEDS: LACTOBACILLUS (15B cfu) CAPSULE PO SCH ×2 (12:26→16:42)
[2016-11-29] MEDS: FUROSEMIDE 40 MG/4 ML INJECTION IVP SCH (12:27)
[2016-11-29] MEDS: ATORVASTATIN 20 MG TABLET PO SCH (20:20)
[2016-11-29] MEDS: QUETIAPINE 50 MG TABLET PO SCH (20:20)
[2016-11-29] MEDS: INSULIN REGULAR, HUMAN 100 UNIT/ML INJECTION SQ PRN (20:20)
[2016-11-29] MEDS: INSULIN DETEMIR 100unit/ml INJECTION SQ SCH (20:21)
[2016-11-29] MEDS: LIDOCAINE PATCH REMOVAL TOP SCH (20:22)
[2016-11-30] MEDS: OMEPRAZOLE 20 MG CAPSULE PO SCH (06:09)
[2016-11-30] MEDS: HYDROCODONE/APAP 10 MG/325 MG TABLET PO PRN (06:09)
[2016-11-30] MEDS: SALINE FLUSH 10ml SYRINGE IVF PRN ×2 (06:09→12:26)
[2016-11-30] MEDS: ALBUTEROL 2.5mg/3ml (0.083%) NEB AEROSOL PRN (06:53)
[2016-11-30] MEDS: BUDESONIDE INH.SOLN 0.5mg/2ml NEB AEROSOL SCH (06:53)
[2016-11-30 07:02] VITALS: RESP 16
--- NOTE | 2016-11-30 07:43 | Pharmacy Consult ---
Pharmacy Consult-Warfarin - Laboratory Information 11/26/16 11/27/16 11/28/16 04:24 04:34 08:15 INR 1.76 H 1.67 H 1.70 H 11/29/16 11/30/16 10:22 03:55 INR 1.77 H 1.79 H - Consult Information Ordered warfarin 5mg po today at noon. Will continue to monitor. Thank you.
[2016-11-30 07:56] VITALS: BP 138/54; TEMP 96.4; O2SAT 95
[2016-11-30] MEDS: INSULIN ASPART 100unit/ml INJECTION SQ SCH ×2 (08:38→12:26)
[2016-11-30] MEDS: LACTOBACILLUS (15B cfu) CAPSULE PO SCH (08:39)
[2016-11-30] MEDS: FERROUS SULFATE 324 MG TABLET PO SCH (08:39)
[2016-11-30] MEDS: CYANOCOBALAMIN (B-12) 1,000mcg/ml INJECTION SQ SCH (10:16)
[2016-11-30] MEDS: ENOXAPARIN 40 MG/0.4 ML INJECTION SQ SCH (10:16)
[2016-11-30] MEDS: ALLOPURINOL 100 MG TABLET PO SCH (10:17)
[2016-11-30] MEDS: ROPINIROLE 1 MG TABLET PO SCH (10:17)
[2016-11-30] MEDS: AMOXICILLIN 875 MG TABLET PO SCH (10:17)
[2016-11-30] MEDS: Desvenlafaxine SR 50 MG TABLET PO SCH (10:18)
[2016-11-30] MEDS: FUROSEMIDE 40 MG TABLET PO SCH (10:18)
[2016-11-30] MEDS: GABAPENTIN 300 MG CAPSULE PO SCH (10:18)
[2016-11-30] MEDS: INSULIN REGULAR, HUMAN 100 UNIT/ML INJECTION SQ PRN (10:30)
--- NOTE | 2016-11-30 11:05 | Discharge Instructions ---
Discharge Plan - Med Rec/Dispo Referrals/Follow Up: Oskar Rosenthal MD [Family Provider] - 1 Week (Please schedule pt to see Dr. Rosenthal in his office in a week.APPOITMENT ON 12/09 10:15 WITH SIM. ) Additional Instructions: You should take 5mg of coumadin tomorrow and get a protime/INR drawn on Wednesday. Dr Rosenthal's office should take over the coumadin instructions at that point. You need to have Vitamin B12 injections daily the , and and then weekly for a month and then monthly injections. The daily injections this week and the weekly injections for a month may be able to be done by home health. Dr. Rosenthal's office should be able to do your monthly injections. You can discuss this with his office. You will have a new prescription for: -amoxicillin (antibiotic). Take this until finished. -iron (ferrous sulfate). Take it until finished for your post operative anemia. -Vitamin B12 (for Vitamin B12 deficiency). Take this daily for a month. Dr Rosenthal will tell you if you need to continue this once this prescription runs out. -probiotics (for diarrhea and being on antibiotics). Take this until finished. -norco (pain medication). When you run out of this prescription, please talk with Dr. Rosenthal if you are still requiring narcotic pain control Adjust your mealtime insulin as indicated based on your blood sugars as you typically do per Dr. Rosenthal. Prescriptions: New Amoxicillin 875 mg PO Q12HR #13 tablet Cyanocobalamin (Vitamin B-12) [Vitamin B-12] 1 tab PO DAILY #30 tab Ferrous Sulfate [Feosol] 324 mg PO WB #30 tablet Acidoph/L.bulg/Bif.b/S.thermop [Bacid Caplet] 2 cap PO BIDWM #30 tablet Cyanocobalamin (B-12) [Vit. B-12] 1,000 mcg SQ DAILY #3 ml Hydrocodone/APAP 10/325 [[place] 10/325] 1 tab PO Q4-5HR PRN #20 tab PRN Reason: Pain Continue Furosemide [Lasix] 40 mg PO DAILY #0 Quetiapine Fumarate [Seroquel] 100 mg PO HS #0 Allopurinol 100 mg PO DAILY #0 Omeprazole 20 mg PO DAILY #0 Potassium Chloride [Klor-Con M20] 20 meq PO BID #0 Atorvastatin Calcium [Lipitor] 20 mg PO HS #0 Gabapentin [Neurontin] 300 mg PO TID #0 Hydrocodone/Acetaminophen [Hydrocodon-Acetaminophn 10-325] 1 - 2 tab PO Q8HR PRN #0 PRN Reason: Pain Insulin Detemir [Levemir] 25 unit SQ HS #30 Tizanidine HCl 2 mg PO DAILY #0 Desvenlafaxine Sr [Pristiq] 50 mg PO DAILY Albuterol Neb (0.083%) [Proventil Neb (0.083%)] 2.5 mg AEROSOL Q6HR PRN PRN Reason: Shortness Of Air Insulin Aspart [NovoLOG] 12 unit SQ TIDWM Ropinirole [Requip] 1 mg PO BID #0 Metoprolol Succinate 25 mg PO DAILY #0 Warfarin Sodium 2 mg PO DAILY #90 tab Discharge Instructions/Outpatient Orders: Final Provider Discharge Instructions Location: Determined By Patient - Disposition [address] [place] [address]
[2016-11-30] MEDS ORDERED: WARFARIN 5 MG TABLET PO SCH (12:00)
[2016-11-30] MEDS: FUROSEMIDE 40 MG/4 ML INJECTION IVP SCH ×2 (12:25→12:45)
--- NOTE | 2016-11-30 12:26 | Discharge Summary ---
<Vicky Tang - Last Filed: 11/30/16 13:57> Discharge Information Date of admission: 11/22/16 22:33 Anticipated date of discharge: 11/30/16 Attending Physician: Rosa Cerna MD Primary care physician: Oskar Rosenthal MD Consults: ID - Dr Crystal Sutherland Surgery - Dr Adrian Morales Cardiology - Dr. Jose Antonio Conn - Discharge Diagnosis Discharge Diagnosis: s/p right 2nd toe amputation secondary to wet gangrene/osteomyelitis sepsis secondary to osteomyelitis - Procedures Procedures: 2nd right toe amputation by Dr. Morales. - Laboratory Labs: 11/30/16 03:55 11/30/16 03:55 - Microbiology Microbiology 11/23/16 08:04 Toe,Second Right Gram Stain - Final 11/23/16 08:04 Toe,Second Right Superficial Wound Culture - Final Strep agalactiae - (Group B) Streptococcus viridans group - Pathology No significant histopathologic abnormalities of sampled bony resection margins History of Present Illness HPI: This is a 71 y/o female with a history of DM2 who has chronic edema to both of her legs/feet. The patient had increased swelling to her right foot and specifically her right 2nd toe. She saw a compounder helper 2 weeks ago that recommended a "cream"' which she couldn't afford. Over the past 2 days increased pain and swelling to this foot and specifically the 2nd toe. The patient developed fever, chills and sweats with nausea and vomiting. The patient presents to the ED today and xray and exam would support probable osteomyelitis of this toe. The patient meets sepsis criteria. The patient will be admitted for a polymicrobial infection of this toe and probable surgical debridement and most likely amputation of toe. Objective Vital signs: Temperature 96.4 F L 11/30/16 07:54 Pulse Rate 69 11/30/16 07:54 Respiratory Rate 16 11/30/16 07:54 Blood Pressure 138/54 11/30/16 07:54 Pulse Oximetry 95 11/30/16 07:54 Oxygen Delivery Method Room Air Height/Weight/BMI: Height 1.7 m Weight 126 kg Body Mass Index 47.7 - Constitutional Present: no acute distress, well nourished, well developed - Routine HEENT Exam Head: Present: normocephalic, atraumatic Eye: Present: EOMI ENT: Present: mucous membranes moist - Routine Respiratory Exam Present: crackles (b/l bases). Absent: wheezes - Routine Cardiovascular Exam Present: RRR, S1, S2. Absent: murmur - Routine Abdominal Exam Present: soft, normoactive bowel sounds, non distended. Absent: tenderness - Routine Extremities Exam Present: edema (mild - R foot), no edema ( L lower leg/foot), normal capillary refill Comments: surgical wound examined. No drainage. Sutures intact. - Routine Skin Exam Present: dry, warm - Routine Neurological Exam Present: alert, oriented X3 - Routine Lymphatic Exam Lymphatic: Absent: adenopathy - Routine Psychiatric Exam Present: normal affect, normal thought process Hospital Course This is a general summary of the patient's hospital course. For more details refer to the complete medical record. Hospital course: Hospital course summary Patient was admitted just before midnight on 11/22/16 to the hospital through the emergency department due to sepsis related to wet gangrene/osteomyelitis of the right second toe. She had right second toe amputation by Dr. Morales on . Her IV broad-spectrum antibiotics were continued until her culture was back resulting heavy growth of group B strep and strep viridans. At that time, she was started on amoxicillin 875 mg twice a day. She did require oxygen during her stay, likely as result of fluid overload. Once her home Lasix was restarted and she was diuresed, her oxygen needs decreased. She developed some chest pain during her stay and cardiology was consulted. It was thought that her pain was GI related, and no further workup was done beyond serial troponins and EKG. She developed diarrhea towards the end of her hospitalization. She had one positive stool for occult blood, but this is thought to be due to rectal irritation. She had repeat stool for occult blood and full GI panel which was negative. She was dismissed home on probiotics, amoxicillin to be continued for a total of 14 days from initiation of antibiotics on 11/23/16, ferrous sulfate, vitamin B12 for B12 deficiency discovered during hospitalization, and her usual home medications. See entry below -11/30/16 dismissal -for specific dismissal instructions. 11/23/16 Hospital admission Patient admitted with severe sepsis and osteomyelitis of the second right toe with cellulitis. Continue broad-spectrum antibiotics with vancomycin and Zosyn due to diabetic foot infection. Surgical consultation initiated, call placed to Dr. Morales regarding surgical plans. High likelihood that second toe will require amputation. Baseline CRP to be obtained in the morning, A1c to be rechecked-last A1c 8.2 in June. Continue basal insulin with corrective scale insulin while nothing by mouth. Continue IV/PO narcotics for pain and home meds as appropriate. Anticipate greater than 2 days hospitalization due to need for IV antibiotics and supportive care. Patient will return to care of Dr. Rosenthal discharge. 11/24/16 Hospital day #2 Patient had right second toe amputation yesterday with Dr. Morales. Continues on broad-spectrum antibiotics with vancomycin and Zosyn. Continue basal insulin with corrective scale insulin for now. Once she starts eating regularly will reinstate routine mealtime insulin. Continue IV/PO narcotics for pain and home meds as appropriate 11/25/16 11:29 Hospital day #3 Continue broad-spectrum antibiotics with vancomycin and Zosyn due to diabetic foot infection. Continue basal insulin with corrective scale insulin for now. She is starting to eat. Monitor sugars closely and if sugars are consistently >200, will restart mealtime insulin. Given that she has crackles on lung exam and her weight is up almost 4 kg, obtain chest x-ray and restart her home Lasix and potassium. Continue IV/PO narcotics for pain and home meds as appropriate. 11/26/2016-I reviewed this chart, the patient history, and the SCIENCE ANALYST's/PA's documented findings as above. We discussed and formulated the assessment and plan as above with the additions below. I've seen and examined the patient independently.-Dr. Cerna The patient is seen in her room this afternoon. She denies shortness of breath currently but is on a couple of liters of oxygen. She denies any chest pain. She states she has used 3 pillows when she sleeps at night for a couple of years to help her breathe better. She states that her Lasix was decreased by Dr. Conn because she had been having lightheadedness. She has been requiring supplemental oxygen since admission, likely secondary to fluid overload. Her weight is 3.4 kg since admission. She was given IV Lasix yesterday and today in addition to her usual oral Lasix which was restarted yesterday. She had a normal ejection fraction on echocardiogram one year ago and EF was also normal on heart catheterization last winter. She is not noticed any difference in her lower extremity edema since that time. She had several bowel movements yesterday after medication for constipation. She states she is urinating without difficulties. The patient reports increasing fatigue over the past 3 months. She has not noticed chest pain during this time. We'll check a TSH and initiate anemia workup. On exam she is alert and in no acute distress. Chest is clear to auscultation anteriorly. Cardiovascular reveals a regular rate and rhythm without murmur. Abdomen is soft, obese, nontender with positive bowel sounds. Extremities reveal 2+ lower extremity in the right leg and +1 lower extremity edema in the left leg. Lab shows BNP of 3960. Blood sugars are ranging from 154-219. INR is 1.76 Regarding acute on chronic hypoxic respiratory failure, this is most likely secondary to pulmonary edema seen on chest x-ray yesterday. Continue with diuresis. If not improving with diuresis, may need further workup and possible consultation with Dr. Conn. Regarding diabetes, She is eating okay and blood sugars are trending up. Will restart insulin with meals. Regarding chronic kidney disease, creatinine is slowly rising and is 1.7 today. Will recheck tomorrow. Regarding anemia, will check iron studies, B-12 and folate. Regarding low back pain, patient states this is chronic but a little worse this hospitalization. She has history of scoliosis. We'll try Lidoderm patch. Regarding nocturnal hypoxemia, patient will likely need O2 at night at home and work up for sleep study. Regarding history of PE, warfarin was restarted and she is on Lovenox DVT prophylaxis. Sepsis has resolved. Regarding osteomyelitis, patient is on Unasyn and being followed by Dr. Sutherland. Awaiting pathology report to help determine how long patient will need antibiotics. Increasing fatigue over the past several months. Will check TSH. Also initiate anemia workup. 11/26/16 Hospital day #4 Continue to monitor blood sugars. Will leave restarting mealtime insulin to attending, Dr. Cerna. Given that she continues to have shortness of breath, crackles on pulmonary exam and weight is up, will order another IV dose of Lasix today. Continue to monitor electrolytes and renal function. Pharmacy to continue managing anticoagulation therapy. This was initiated yesterday. Continue Unasyn per Dr. Sutherland. Recommendation for 6 weeks of IV antibiotics is pending path results.Regarding acute on chronic hypoxic respiratory failure, this is most likely secondary to pulmonary edema seen on chest x-ray yesterday. Continue with diuresis. If not improving with diuresis, may need further workup and possible consultation with Dr. Conn. Dr Cerna: Regarding diabetes, She is eating okay and blood sugars are trending up. Will restart insulin with meals. Regarding chronic kidney disease, creatinine is slowly rising and is 1.7 today. Will recheck tomorrow. Regarding anemia, will check iron studies, B-12 and folate. Regarding low back pain, patient states this is chronic but a little worse this hospitalization. She has history of scoliosis. We'll try Lidoderm patch. Regarding nocturnal hypoxemia, patient will likely need O2 at night at home and work up for sleep study. Regarding history of PE, warfarin was restarted and she is on Lovenox DVT prophylaxis. Sepsis has resolved. Regarding osteomyelitis, patient is on Unasyn and being followed by Dr. Sutherland. Awaiting pathology report to help determine how long patient will need antibiotics. Increasing fatigue over the past several months. Will check TSH. Also initiate anemia workup. 11/27/16 Hospital day #5 As workup for chest pain, EKG was obtained which shows sinus bradycardia with a rate of 55. No ST-T wave changes. Telemetry was started. Will check a chest x- ray and abdominal x-ray. Troponin and lipase were ordered. When results are back , will discuss with Dr. Conn. Restart patient's omeprazole. Give GI cocktail. If pain not resolved will give nitroglycerin and/or morphine. Dr. Sutherland change the patient to amoxicillin orally today. She will need 10 more days. Possible dismissal to home versus prison unit this weekend. Continue current insulin for diabetes. Start subcutaneous B-12 for B-12 deficiency. Check Hemoccults regarding borderline iron deficiency. Start oral iron. May need workup regarding borderline iron deficiency anemia. Lipase is back in normal. Chest x-ray is normal. KUB shows nonobstructive, nonspecific bowel gas pattern. Minimal overall bowel gas and fluid-filled bowel loops cannot be excluded. 11/28/16 Hospital day #6 Overall, the patient is doing better today. Increase activity today. Possible discharge tomorrow. Check a basic metabolic profile tomorrow. Continue current insulin for diabetes but will decrease the dose secondary to borderline hypoglycemia. Continue subcutaneous B-12 for B-12 deficiency. Check Hemoccults regarding borderline iron deficiency. May need to do as outpatient. Continue oral iron. May need workup regarding borderline iron deficiency anemia. 11/29/16 Hospital day #7 Patient reports that chest pain is resolved. Continue PPI. CV consulted. Recent fairly normal heart cath. Off O2 and doing well, no SOA. Continue daily Lasix. Sepsis is resolved- continue Amoxil for total of 2 weeks of antibiotics. (d#10) T2DM- BG is well controlled. Continue insulin. Anemia remains- concern for FOB. Repeat hemoccult today. Diarrhea- Assess stool panel, FOB. Add cholestyramine for diarrhea, PRN. She reports that diarrhea is bilious in nature. Hx of PE- CTA negative. Warfarin restarted. Pharmacy following. Overall, doing well. Potentially home soon if stool cx is negative. 11/30/16 Dismissal Dismissed home with home health to follow patient. Patient has follow-up appointments with Dr. Rosenthal and Dr. Morales next week. She is to take 5 mg Coumadin tomorrow and repeat INR on 12/02/[address] Rosenthal to follow her INRs. Amoxicillin prescription given. Take until finished. She was given Rogers # 20 pills for postop pain and then will need to get further pills through her PCP if needed. She was started on vitamin B12, iron, and probiotics. Vitamin B12 injections will need to be given daily the next 3 days, then weekly for a month and monthly. She will likely get this set up through home health. Time spent with patient: discharge greater than 30 minutes Discharge Plan - Med Rec/Dispo Referrals/Follow Up: Oskar Rosenthal MD [Family Provider] - 1 Week (Please schedule pt to see Dr. Rosenthal in his office in a week.APPOITMENT ON 12/09 10:15 WITH SIM. ) Additional Instructions: You should take 5mg of coumadin tomorrow and get a protime/INR drawn on Wednesday. Dr Rosenthal's office should take over the coumadin instructions at that point. You need to have Vitamin B12 injections daily the , and and then weekly for a month and then monthly injections. The daily injections this week and the weekly injections for a month may be able to be done by home health. Dr. Rosenthal's office should be able to do your monthly injections. You can discuss this with his office. You will have a new prescription for: -amoxicillin (antibiotic). Take this until finished. -iron (ferrous sulfate). Take it until finished for your post operative anemia. -Vitamin B12 (for Vitamin B12 deficiency). Take this daily for a month. Dr Rosenthal will tell you if you need to continue this once this prescription runs out. -probiotics (for diarrhea and being on antibiotics). Take this until finished. -norco (pain medication). When you run out of this prescription, please talk with Dr. Rosenthal if you are still requiring narcotic pain control Adjust your mealtime insulin as indicated based on your blood sugars as you typically do per Dr. Rosenthal. Prescriptions: New Amoxicillin 875 mg PO Q12HR #13 tablet Cyanocobalamin (Vitamin B-12) [Vitamin B-12] 1 tab PO DAILY #30 tab Ferrous Sulfate [Feosol] 324 mg PO WB #30 tablet Acidoph/L.bulg/Bif.b/S.thermop [Bacid Caplet] 2 cap PO BIDWM #30 tablet Cyanocobalamin (B-12) [Vit. B-12] 1,000 mcg SQ DAILY #3 ml Hydrocodone/APAP 10/325 [Rogers 10/325] 1 tab PO Q4-5HR PRN #20 tab PRN Reason: Pain Continue Furosemide [Lasix] 40 mg PO DAILY #0 Quetiapine Fumarate [Seroquel] 100 mg PO HS #0 Allopurinol 100 mg PO DAILY #0 Omeprazole 20 mg PO DAILY #0 Potassium Chloride [Klor-Con M20] 20 meq PO BID #0 Atorvastatin Calcium [Lipitor] 20 mg PO HS #0 Gabapentin [Neurontin] 300 mg PO TID #0 Hydrocodone/Acetaminophen [Hydrocodon-Acetaminophn 10-325] 1 - 2 tab PO Q8HR PRN #0 PRN Reason: Pain Insulin Detemir [Levemir] 25 unit SQ HS #30 Tizanidine HCl 2 mg PO DAILY #0 Desvenlafaxine Sr [Pristiq] 50 mg PO DAILY Albuterol Neb (0.083%) [Proventil Neb (0.083%)] 2.5 mg AEROSOL Q6HR PRN PRN Reason: Shortness Of Air Insulin Aspart [NovoLOG] 12 unit SQ TIDWM Ropinirole [Requip] 1 mg PO BID #0 Metoprolol Succinate 25 mg PO DAILY #0 Warfarin Sodium 2 mg PO DAILY #90 tab Discharge Instructions/Outpatient Orders: Final Provider Discharge Instructions Location: Determined By Patient - Disposition [facility] <Rosa Cerna - Last Filed: 11/30/16 18:02> Discharge Information Date of admission: 11/22/16 22:33 Attending Physician: Romi Parks MD Primary care physician: Oskar Rosenthal MD Consults: 11/22/16 23:58 Dietary Consult [CONS] Routine Comment: Reason For Exam: 11/23/16 06:14 Physician Consult [CONS] Routine Consulting Provider: Adrian Morales Reason For Exam: Non healing wound on R. 2nd toe Ordering Provider has Notified Arson Investigator: Kyra 11/23/16 06:20 Wound [facility] Clinic Consult [CONS] Routine Reason for consultation: Non healing would on 2nd toe of R. foot 11/25/16 Pharmacy Consult [CONS] Routine Pharmacy Consult: Coumadin/Warfarin 11/25/16 09:38 Physician Consult [CONS] Routine Consulting Provider: Crystal Sutherland Reason For Exam: osteo in previous right 2nd toe,now amp site Ordering Provider has Notified Arson Investigator: No Comment: notified annie with consult 11/27/16 14:27 Physician Consult [CONS] Routine Consulting Provider: Jose Antonio Conn Reason For Exam: chest pain Ordering Provider has Notified Arson Investigator: Yes - Laboratory Labs: 11/30/16 03:55 11/30/16 03:55 - Microbiology Microbiology 11/23/16 08:04 Toe,Second Right Gram Stain - Final 11/23/16 08:04 Toe,Second Right Superficial Wound Culture - Final Strep agalactiae - (Group B) Streptococcus viridans group Objective Vital signs: Temperature 96.4 F L 11/30/16 07:54 Pulse Rate 78 11/30/16 11:00 Respiratory Rate 16 11/30/16 07:54 Blood Pressure 138/54 11/30/16 07:54 Pulse Oximetry 95 11/30/16 07:54 Oxygen Delivery Method Room Air Oxygen Flow Rate 2 Height/Weight/BMI: Height 1.7 m Weight 126 kg Body Mass Index 47.7 Hospital Course This is a general summary of the patient's hospital course. For more details refer to the complete medical record. Hospital course: 11/30/2016-I reviewed this chart, the patient history, and the SCIENCE ANALYST's/PA's documented findings as above. We discussed and formulated the assessment and plan as above with the additions below.-Dr. Cerna The patient is feeling very well today. She feels ready to go home. Pain is controlled. She is eating and drinking well. She feels stable to go home with home health. She has no complaints. Chest is clear to auscultation. Cardiac vascular reveals a regular rate and rhythm. Abdomen is soft and nontender. Extremities are free of edema. We'll dismiss to home with home health today. She will need an INR on Wednesday. I will call and talk with Dr. Rosenthal regarding discharge plans. Time spent with patient: greater than 35 minutes
[2016-11-30 14:36] VITALS: PULSE 78
== END 2016-11-30 14:10 | disposition home health service (06) | DRG 854 ==
LOC: ED 19:51 → MED 22:33
PROVIDERS: ADMIT Emergency Medicine; ATTEND Internal Medicine

== ENCOUNTER 2017-05-24 22:39 | Inpatient (IN) ==
[2017-05-24] MEDS ORDERED: MORPHINE SULFATE 2mg INJECTION IVP ONE (23:38)
[2017-05-24] MEDS ORDERED: ONDANSETRON 4 MG/2 ML INJECTION IVP ONE (23:38)
[2017-05-24] MEDS ORDERED: SALINE FLUSH 10ml SYRINGE IVF PRN (23:38)
--- NOTE | 2017-05-24 23:41 | Emergency Department Report ---
Fall HPI - General Chief Complaint: Fall Stated Complaint: Fall Time Seen by Provider: 05/24/17 23:37 Source: patient, EMS, RN notes reviewed, old records reviewed, other (PCM) Mode of arrival: EMS Limitations: no limitations - History of Present Illness HPI Narrative: 71yo woman is presented to the ER by EMS for evaluation after a fall. Pt was walking in her kitchen at home when she fell. Pt blames dragging her left foot as the culprit. Pt fell on her left knee and now has severe pain. Denies other sx or injuries. 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 MD complaint: fall Onset (ago): hour(s) Fall from: standing Fall witnessed: yes, by family Place fall occurred: home Loss of consciousness: none Prolonged down time: no Symptoms prior to fall: none Context: tripped/slipped Location of injury - extremities: Left: knee Severity: severe Severity scale (1-10): 8 Quality: sharp, stabbing Associated symptoms (after fall): denies - Related Data Home Medications Medication Instructions Recorded Confirmed Metoprolol Succinate 25 mg PO DAILY #0 10/17/08 05/24/17 Quetiapine Fumarate [Seroquel] 100 mg PO HS #0 10/17/08 05/24/17 Ropinirole [Requip] 1 mg PO BID #0 10/17/08 05/24/17 Albuterol Neb (0.083%) [Proventil 2.5 mg AEROSOL Q6HR PRN 11/22/16 05/24/17 Neb (0.083%)] Desvenlafaxine SR [Pristiq] 50 mg PO DAILY 11/22/16 05/24/17 Allopurinol [Zyloprim] 100 mg PO DAILY 04/13/17 05/24/17 Atorvastatin [Lipitor] 20 mg PO HS 04/13/17 05/24/17 Cyanocobalamin (Vitamin B-12) 1,000 mcg PO DAILY 04/13/17 05/24/17 [Vitamin B-12] Furosemide [Lasix] 40 mg PO BID 04/13/17 05/24/17 Gabapentin 300 mg PO TID 04/13/17 05/24/17 Hydrocodone/APAP 10/325 [[place] 1 tab PO BID 04/13/17 05/24/17 10/325] Omeprazole [Prilosec] 20 mg PO DAILY 04/13/17 05/24/17 Potassium Chloride [Klor-Con M20] 20 meq PO BID 04/13/17 05/24/17 Rivaroxaban [Xarelto] 20 mg PO HS 04/13/17 05/24/17 Allergies Allergy/AdvReac Type Severity Reaction Status Date / Time codeine Allergy Unknown RASH Verified 04/13/17 18:31 prochlorperazine Allergy Unknown Verified 04/13/17 18:31 Sulfa (Sulfonamide Allergy Unknown Verified 04/13/17 18:31 Antibiotics) Review of Systems All systems: reviewed and negative except as stated PFSH Patient Stated Medical History Cerebrovascular Accident Yes: minor right sided weakness and right facial droop Syncope Yes Dental Problems Yes Angina No Cardiac Arrhythmia No Congestive Heart Failure No Coronary Artery Disease No Heart Murmur No Hypertension No Hypotension No Myocardial Infarction No Rheumatic Fever No Valvular Heart Disease No Other Cardiology No: Recent Cath/stress test/echo with Dr. Conn. no negative results Asthma Yes Chronic Obstructive Pulmonary Yes Disease (COPD) Pulmonary Embolism Yes: hx Sleep Apnea Yes Diabetes Mellitus Type 1 Yes Diabetes Mellitus Type 2 Yes Gastroesophageal Reflux Yes: moderate Disease Hepatitis Yes: hx hep C Hx Incontinence Yes Hx Renal Disease Yes: stage 3 Clotting Problems Yes Osteoarthritis Yes Cellulitis Yes Anesthesia Reactions No Blood Transfusions No Chemotherapy No Malignant Hyperthermia No Other No Depression Yes Now No Medical History Updates: COPD. Gout. HL. Depr. CHF. Diabetic peripheral neuropathy. DM. Tinea cruris. GERD. Hypokalemia. Insomnia. Arrhythmia. RLS Surgical History: cholecystectomy, tubal ligation, breast lumpectomy cancer, ventral herniorrhaghy, bilateral total knee replacements Dr. Leos, Left shoulder anterior acromioplasty and open clavicular resection 09-04-10, normal colonoscopy 06-01-2008 Dr. Morales, EGD Irregular GE junction 06-01-2008 Dr. Morales, HEART CATH EF 65% and mild CAD in LAD 03-25-16 Dr. Conn. S/p R 2nd toe amputation 11/23/16 - Social History Smoking status: Former smoker Physical Exam - Limitations Limitations: no limitations - General General appearance: alert, in no apparent distress, obese (Morbid) - Normal Exams: Head:: Normocephalic without trauma Eyes:: Pupils are PERRLA w/ EOMI, No scleral icterus, irritation, or foreign bodies noted ENMT:: No facial trauma, nasal exudates, pharyngeal erythema, or exudates are noted Neck:: Full range of motion, without adenopathy Lymphatic:: No lymphadenopathy Integumentary:: No rashes, hives, or bruising noted Neurological:: Patient is alert, and oriented, cranial nerves, motor/sensory/ cerebellar, exams w/o gross deficits Psychiatric:: Patient exhibits, appropriate attention - Chest Chest inspection: Present: normal inspection, symmetric chest wall rise. Absent : tenderness, rash - Respiratory Respiratory exam: Present: normal lung sounds bilaterally. Absent: respiratory distress, wheezes, stridor, prolonged expiratory phase, crackles - Cardiovascular Cardiovascular exam: Present: regular rate, normal rhythm, normal heart sounds - Abdominal Exam Abdominal exam: Present: soft, normal bowel sounds. Absent: distention, tenderness, guarding, rebound, rigidity Course - Consultations Consultation #1: Dr. Ansari: Given prior surgery and current injury, would recommend transfer to a trauma center for further evaluation/treatment. Time: 00:30 Consultation #2: Dr. Boudreaux: Discussed ortho recommendations. States that he will present to the ER to eval and admit. Will request a consult from ortho in the AM. Time: 00:50 Vital Signs Pulse Rate 76 05/24/17 22:53 Respiratory Rate 18 05/24/17 22:53 Blood Pressure 182/67 H 05/24/17 22:53 Pulse Oximetry 93 05/24/17 22:53 Pulse Rate 71 05/25/17 01:07 Respiratory Rate 20 05/25/17 01:07 Blood Pressure 143/70 H 05/25/17 01:07 Pulse Oximetry 100 05/25/17 01:07 Fall - MDM Narrative Medical decision making narrative: Pt with fx of distal femur. After discussion with pts PCM, pt will be admitted locally and reassessed in the AM. - Differential Diagnosis Likely: syncope (Femur fx, tibia fx) - Medical Records Attestation: I reviewed the patient's medical records. - Lab Data Attestation: I reviewed the patient's lab results. Result diagrams: 05/24/17 23:51 05/24/17 23:51 Lab Results 05/24/17 05/24/17 Range/Units 23:51 23:51 WBC 9.0 (4.5-11.0) T/MM3 RBC 4.32 (4.00-5.20) M/MM3 Hgb 10.8 L (12-16) GM/DL Hct 36.7 (36-46) % MCV 85.0 (80-100) UM3 MCH 25.0 L (26-34) UUG MCHC 29.4 L (31-37) GM/DL RDW Std Deviation 47.1 (36.9-50.2) FL Plt Count 185 (130-400) T/MM3 MPV 11.6 (9.4-12.4) UM3 Immature Gran % (Auto) 0.2 (0.0-0.5) % Neut % (Auto) 62.2 (33-66) % Lymph % (Auto) 25.5 (23-45) % Lamb % (Auto) 6.8 (0-9.0) % Eos % (Auto) 4.9 H (0-4) % Baso % (Auto) 0.4 (0-2) % Neut # (Auto) 5.6 (1.8-7.7) T/MM3 Lymph # (Auto) 2.3 (1-4.8) T/MM3 Lamb # (Auto) 0.6 (0-0.8) T/MM3 Eos # (Auto) 0.4 (0-0.5) T/MM3 Baso # (Auto) 0.0 (0-0.2) T/MM3 Abs Immat Gran (auto) 0.02 (0.00-0.03) T/MM3 Turbidity < 20 (0-20) Sodium 144 (134-144) MEQ/L Potassium 4.8 (3.6-5) MEQ/L Chloride 108 H (98-107) MEQ/L Carbon Dioxide 25 (22-30) MEQ/L Anion Gap 11 (5-15) MEQ/L BUN 28.0 H (7-17) MG/DL Creatinine 1.4 H (0.7-1.2) MG/DL GFR Calculation 37 BUN/Creatinine Ratio 20 (6-26) RATIO Glucose 97 (65-110) MG/DL Calculated Osmolality 283 H (261-280) MOSM/KG Calcium 9.3 (8.4-10.2) MG/DL Icterus Index < 2 (0-7) Specimen Hemolysis < 15 (0-25) - Radiology Data Attestation: I reviewed the patient's radiology results. Left Knee: Fracture and dislocation of distal femur. CXR: Stable chest. No acute CT pathology. - EKG Data EKG #1 EKG attestation: Yes: I reviewed and interpreted this EKG. EKG shows normal: sinus rhythm, axis, intervals, QRS complexes Rhythm: PVC's P waves: LAE Interpretation: nonspecific ST-T wave changes Disposition Clinical Impression: Femur fracture, left Qualifiers: Encounter type: initial encounter Femur location: distal Fracture type: closed Fracture morphology: unspecified fracture morphology Qualified Code(s): S72.402A - Unspecified fracture of lower end of left femur, initial encounter for closed fracture [place] [facility] [place] Condition: Stable Prescriptions: No Action Quetiapine Fumarate [Seroquel] 100 mg PO HS #0 Desvenlafaxine SR [Pristiq] 50 mg PO DAILY Albuterol Neb (0.083%) [Proventil Neb (0.083%)] 2.5 mg AEROSOL Q6HR PRN PRN Reason: Shortness Of Air Cyanocobalamin (Vitamin B-12) [Vitamin B-12] 1,000 mcg PO DAILY Atorvastatin [Lipitor] 20 mg PO HS Potassium Chloride [Klor-Con M20] 20 meq PO BID Omeprazole [Prilosec] 20 mg PO DAILY Furosemide [Lasix] 40 mg PO BID Allopurinol [Zyloprim] 100 mg PO DAILY Rivaroxaban [Xarelto] 20 mg PO HS Ropinirole [Requip] 1 mg PO BID #0 Metoprolol Succinate 25 mg PO DAILY #0 Hydrocodone/APAP 10/325 [Rougon 10/325] 1 tab PO BID Gabapentin 300 mg PO TID Referrals: Yaakov Boudreaux MD [Family Provider] - Time of Disposition: 01:01 - Seen By: physician
[2017-05-25] MEDS ORDERED: MORPHINE SULFATE 4mg INJECTION IVP ONE (00:50)
[2017-05-25] MEDS ORDERED: KETOROLAC 30 MG/ML INJECTION IVP ONE (00:51)
[2017-05-25] MEDS ORDERED: ONDANSETRON 4 MG/2 ML INJECTION IVP PRN ×2 (02:27→17:19)
[2017-05-25] MEDS ORDERED: ALBUTEROL 2.5mg/3ml (0.083%) NEB AEROSOL PRN (02:27)
[2017-05-25 02:51] VITALS: BMI 49.8
[2017-05-25] MEDS: MORPHINE SULFATE 4mg INJECTION IVP PRN ×2 (03:01→08:37)
[2017-05-25] MEDS: [UNRECOGNIZED DRUG - OTHER] IV SCH ×2 (03:13→18:43)
[2017-05-25] MEDS: D5 IV SCH ×2 (03:13→18:43)
[2017-05-25] MEDS: POTASSIUM CHLORIDE IV SCH ×2 (03:13→18:43)
--- NOTE | 2017-05-25 07:46 | XRay Report ---
Indication: Femur fx PROCEDURE: XR chest 1V: Encounter: Initial Comparison: November 27, 2016 Findings: The lungs are stable in appearance without new focal airspace consolidation. There is no pleural effusion or pneumothorax. The heart size, pulmonary vascularity and mediastinal contours are unchanged. IMPRESSION: Stable appearance of the chest without acute cardiopulmonary disease. .
--- NOTE | 2017-05-25 07:47 | XRay Report ---
Indication: Fall with left knee pain PROCEDURE: XR knee LT 3V: Encounter: Initial Comparison: None Findings: There is a displaced comminuted and angulated periprosthetic fracture of the distal femur with apex anterior angulation of the distal fracture fragment and anterior rotation. Bony demineralization. Impression: Closed posttraumatic periprosthetic distal femoral fracture. .
--- NOTE | 2017-05-25 07:55 | Family Practice History&Phys ---
History of Present Illness Chief complaint: Leg pain HPI: She fell last night at home. She fell forward onto her right knee. She had an emergency response button and pushed that. She went to the ER by EMS. She was found to have a femur fracture. She has previously had a knee joint replacement in this knee. She reports her pain is under pretty good control. She denies chest pain. [facility] Patient Stated Medical History Cerebrovascular Accident Yes: minor right sided weakness and right facial droop Peripheral Neuropathy Yes Syncope Yes Dental Problems Yes Angina Yes Cardiac Arrhythmia Yes Heart Murmur Yes Hypertension Yes Other Cardiology Recent Cath/stress test/echo with Dr. Conn. no negative results Asthma Yes Chronic Obstructive Pulmonary Yes Disease (COPD) Pulmonary Embolism Yes: hx Sleep Apnea Yes Diabetes Mellitus Type 2 Yes Gastroesophageal Reflux Yes: moderate Disease Hepatitis Yes: hx hep C Hx Incontinence Yes Hx Renal Disease Yes: stage 3 Clotting Problems Yes Osteoarthritis Yes Cellulitis Yes Clostridium Difficile Yes: 5-6 months ago Depression Yes Medical History Updates: COPD. Gout. HL. Depr. CHF. Diabetic peripheral neuropathy. DM. Tinea cruris. GERD. Hypokalemia. Insomnia. Arrhythmia. RLS Surgical History: cholecystectomy, tubal ligation, breast lumpectomy cancer, ventral herniorrhaghy, bilateral total knee replacements Dr. Leos, Left shoulder anterior acromioplasty and open clavicular resection 09-04-10, normal colonoscopy 06-01-2008 Dr. Morales, EGD Irregular GE junction 06-01-2008 Dr. Morales, HEART CATH EF 65% and mild CAD in LAD 03-25-16 Dr. Conn. S/p R 2nd toe amputation 11/23/16 - Social History Smoking status: Former smoker Medications Home Medications Medication Instructions Recorded Confirmed Type Metoprolol Succinate 25 mg PO DAILY #0 10/17/08 05/24/17 History Quetiapine Fumarate [Seroquel] 100 mg PO HS #0 10/17/08 05/24/17 History Ropinirole [Requip] 1 mg PO BID #0 10/17/08 05/24/17 History Albuterol Neb (0.083%) [Proventil 2.5 mg AEROSOL Q6HR PRN 11/22/16 05/24/17 History Neb (0.083%)] Desvenlafaxine SR [Pristiq] 50 mg PO DAILY 11/22/16 05/24/17 History Allopurinol [Zyloprim] 100 mg PO DAILY 04/13/17 05/24/17 History Atorvastatin [Lipitor] 20 mg PO HS 04/13/17 05/24/17 History Cyanocobalamin (Vitamin B-12) 1,000 mcg PO DAILY 04/13/17 05/24/17 History [Vitamin B-12] Furosemide [Lasix] 40 mg PO BID 04/13/17 05/24/17 History Gabapentin 300 mg PO TID 04/13/17 05/24/17 History Hydrocodone/APAP 10/325 [[place] 1 tab PO BID 04/13/17 05/24/17 History 10/325] Omeprazole [Prilosec] 20 mg PO DAILY 04/13/17 05/24/17 History Potassium Chloride [Klor-Con M20] 20 meq PO BID 04/13/17 05/24/17 History Rivaroxaban [Xarelto] 20 mg PO HS 04/13/17 05/24/17 History Allergies Allergy/AdvReac Type Severity Reaction Status Date / Time codeine Allergy Unknown RASH Verified 04/13/17 18:31 prochlorperazine Allergy Unknown Verified 04/13/17 18:31 Sulfa (Sulfonamide Allergy Unknown Verified 04/13/17 18:31 Antibiotics) Exam Vital signs: Temperature 97.1 F 05/25/17 07:23 Pulse Rate 73 05/25/17 07:23 Respiratory Rate 18 05/25/17 07:23 Blood Pressure 132/67 05/25/17 07:23 Pulse Oximetry 100 05/25/17 07:23 - Constitutional no acute distress, well developed, obese - Routine HEENT Exam Head: Present: normocephalic Eye: Present: PERRL ENT: Present: mucous membranes moist, external ear normal Throat: normal inspection - Routine Neck Exam Present: supple - Routine Respiratory Exam Present: CTA bilaterally - Routine Cardiovascular Exam Present: RRR - Routine Abdominal Exam Present: soft, normoactive bowel sounds, non distended - Routine Psychiatric Exam Present: normal affect - Additional findings Additional findings: Left foot is warm with some edema. I was not able to palpate a PT or DP pulse. Results - Labs Result diagrams: 05/24/17 23:51 05/24/17 23:51 All other labs normal. Assessment and Plan - Assessment and Plan (1) Femur fracture, left Current visit: Yes Status: Acute Orthopedic consult. She is getting IV ms for pain. NPO for now. (2) CKD (chronic kidney disease) stage 3, GFR 30-59 ml/min Current visit: No Status: Chronic Check lab this morning. (3) DM type 2 (diabetes mellitus, type 2) Current visit: No Status: Acute She did not take her long acting insulin before the incident occurred. Will give 1/2 of her long acting insulin and use a sliding scale. (4) Wound, open, toe Current visit: No Status: Chronic She had dressing changed yesterday. The current order is for dressing changes 2 x a week and prn. (5) HTN (hypertension) Current visit: No Status: Chronic H&P: Quality - Stroke Onset of Symptoms Time: 22:00
--- NOTE | 2017-05-25 08:05 | Orthopedic Consult Note ---
Orthopedic Consultation HPI - Consultation Info Consult Date: 05/25/17 Attending Physician: Yaakov Boudreaux MD Ortho attending: Lucille Menendez MD Consult Reason: fracture - History of Present Illness Mrs. Flores is a 71 year old female who fell forward in her kitchen last night after tripping landing on her left knee. She called for help with a medical alert device and was transported by EMS to [facility] [place] ER. There, Dr. Cardona evaluated her with X-rays which revealed a left knee periprosthetic severely comminuted and apex anterior angulated distal femur fracture. She is a brittle diabetic, has a history of stroke, previous PE, CKD stage 3, Hep C , and multiple other chronic medical issues. She is on Xarelto at home. Her last dose was 03/23/18 at about 6:[address] Menendez has been consulted for surgical management and is planning an ORIF of her left distal femur. She presently locates pain, although tolerable, in the left distal femur. It is worse with motion, better with rest and analgesics. She denies chest pain, shortness of breath. Review of Systems - Constitutional Constitutional: Absent: headache(s) - EENT Eyes: Absent: pain Ears, nose, mouth, throat: Absent: head injury - Cardiovascular Cardiovascular: Absent: chest pain - Respiratory Respiratory: Absent: cough - Gastrointestinal Gastrointestinal: Absent: nausea - Genitourinary Genitourinary General: Absent: chills - Musculoskeletal Musculoskeletal: Present: as per HPI - Neurological Neurological: Present: numbness (peripheral neropathy), restless legs - Psychiatric Psychiatric: Present: depression - Hematologic/Lymphatic Hematologic/Lymphatic: Present: easy bleeding REPLACED BY [facility] Patient Stated Medical History Cerebrovascular Accident Yes: minor right sided weakness and right facial droop Peripheral Neuropathy Yes Syncope Yes Dental Problems Yes Angina Yes Cardiac Arrhythmia Yes Heart Murmur Yes Hypertension Yes Other Cardiology Recent Cath/stress test/echo with Dr. Conn. no negative results Asthma Yes Chronic Obstructive Pulmonary Yes Disease (COPD) Pulmonary Embolism Yes: hx Sleep Apnea Yes Diabetes Mellitus Type 2 Yes Gastroesophageal Reflux Yes: moderate Disease Hepatitis Yes: hx hep C Hx Incontinence Yes Hx Renal Disease Yes: stage 3 Clotting Problems Yes Osteoarthritis Yes Cellulitis Yes Clostridium Difficile Yes: 5-6 months ago Depression Yes Medical History Updates: COPD. Gout. HL. Depr. CHF. Diabetic peripheral neuropathy. DM. Tinea cruris. GERD. Hypokalemia. Insomnia. Arrhythmia. RLS Surgical History: cholecystectomy, tubal ligation, breast lumpectomy cancer, ventral herniorrhaghy, bilateral total knee replacements Dr. Leos, Left shoulder anterior acromioplasty and open clavicular resection 09-04-10, normal colonoscopy 06-01-2008 Dr. Morales, EGD Irregular GE junction 06-01-2008 Dr. Morales, HEART CATH EF 65% and mild CAD in LAD 03-25-16 Dr. Conn. S/p R 2nd toe amputation 11/23/16 - Social History Smoking status: Former smoker Medications Home Medications Medication Instructions Recorded Confirmed Type Metoprolol Succinate 25 mg PO DAILY #0 10/17/08 05/24/17 History Quetiapine Fumarate [Seroquel] 100 mg PO HS #0 10/17/08 05/24/17 History Ropinirole [Requip] 1 mg PO BID #0 10/17/08 05/24/17 History Albuterol Neb (0.083%) [Proventil 2.5 mg AEROSOL Q6HR PRN 11/22/16 05/24/17 History Neb (0.083%)] Desvenlafaxine SR [Pristiq] 50 mg PO DAILY 11/22/16 05/24/17 History Allopurinol [Zyloprim] 100 mg PO DAILY 04/13/17 05/24/17 History Atorvastatin [Lipitor] 20 mg PO HS 04/13/17 05/24/17 History Cyanocobalamin (Vitamin B-12) 1,000 mcg PO DAILY 04/13/17 05/24/17 History [Vitamin B-12] Furosemide [Lasix] 40 mg PO BID 04/13/17 05/24/17 History Gabapentin 300 mg PO TID 04/13/17 05/24/17 History Hydrocodone/APAP 10/325 [[place] 1 tab PO BID 04/13/17 05/24/17 History 10/325] Omeprazole [Prilosec] 20 mg PO DAILY 04/13/17 05/24/17 History Potassium Chloride [Klor-Con M20] 20 meq PO BID 04/13/17 05/24/17 History Rivaroxaban [Xarelto] 20 mg PO HS 04/13/17 05/24/17 History Allergies Allergy/AdvReac Type Severity Reaction Status Date / Time codeine Allergy Unknown RASH Verified 04/13/17 18:31 prochlorperazine Allergy Unknown Verified 04/13/17 18:31 Sulfa (Sulfonamide Allergy Unknown Verified 04/13/17 18:31 Antibiotics) Orthopedic Exam Vital signs: Temperature 97.1 F 05/25/17 07:23 Pulse Rate 73 05/25/17 07:23 Respiratory Rate 18 05/25/17 07:23 Blood Pressure 132/67 05/25/17 07:23 Pulse Oximetry 100 05/25/17 07:23 - Constitutional General Appearance: Present: alert, orientated x3, morbidly obese - Respiratory Exam Present: non-labored - Cardiovascular Exam Capillary Refill: > 3 Seconds - Abdominal Exam Absent: tenderness - Extremities Exam Present: pulses intact. Absent: calf tenderness - Integumentary Exam Present: pink, warm, dry - Neurological Exam Present: no deficits (periperal neuropathy) - Psychiatric Exam Present: normal affect - Labs Result Diagrams: 05/24/17 23:51 05/24/17 23:51 Impression and Recommendation (1) Periprosthetic fracture around internal prosthetic joint Current visit: Yes Qualifiers: Internal joint prosthesis site: knee Encounter type: initial encounter Laterality: left Qualified Code(s): M97.12XA - Periprosthetic fracture around internal prosthetic left knee joint, initial encounter; T84.043A - Periprosthetic fracture around internal prosthetic left knee joint, initial encounter Status: Acute Dr. Menendez is planning ORIF of the left femur last dose of Xarelto was 03/23/18 at about 6:[address] Menendez was texted with this information as he is presently in surgery. NPO Sign consent SCD's Risks and benefits of the recommended procedure were discussed with the patient and/or patient's legal passenger relations representative. They include: infection, nerve damage, artery damage, stroke, VT, PE, DVT, ileus, continued pain, or risk that the injury may not heal despite surgery. There are also medical risks of anesthesia. Risks are not limited to the above mentioned alone. Hospital Course Summary Disclaimer: The visit summary below is not to be considered part of the above Progress Note.
[2017-05-25] MEDS ORDERED: INSULIN DETEMIR 100unit/ml INJECTION SQ ONE (08:45)
[2017-05-25] MEDS ORDERED: INSULIN ASPART 100unit/ml INJECTION SQ PRN (08:46)
[2017-05-25] MEDS ORDERED: NOZIN NASAL SWAB NAS ONE ×2 (08:52→17:19)
[2017-05-25] MEDS: NS 1,000 ML IV SCH ×5 (11:17→16:26)
[2017-05-25] MEDS ORDERED: ALBUTEROL/IPRATROPIUM 2.5mg-0.5mg/3ml NEB AEROSOL PRN (11:45)
[2017-05-25] MEDS ORDERED: LIDOCAINE 1% (10mg/ml) 30ml SDV INJ ONE (11:46)
[2017-05-25] MEDS ORDERED: BUPIVACAINE 0.25% (2.5mg/ml) PF 30ml INJECTION ONE (11:46)
[2017-05-25] MEDS ORDERED: FentaNYL 250 MCG/5 ML INJECTION ONE (12:43)
[2017-05-25] MEDS ORDERED: MIDAZOLAM 2mg/2ml INJECTION ONE (12:43)
[2017-05-25] MEDS ORDERED: PROPOFOL 20 ML ONE (12:45)
[2017-05-25] MEDS ORDERED: KETAMINE 500 MG/10 ML INJECTION ONE (12:46)
[2017-05-25] MEDS ORDERED: ROCURONIUM 50 MG/5 ML INJECTION IVP ONE ×2 (13:02→14:47)
--- NOTE | 2017-05-25 13:06 | Anesthesia Preoperative Report ---
Anesthesia Preoperative Record - Date and Time Date: 05/25/17 Preoperative Diagnosis: femur fracture Proposed Procedure: left distal femur ORIF NPO Since Date: 05/24/17 NPO Since Time: 23:00 Allergies/Adverse Reactions: Allergies Allergy/AdvReac Type Severity Reaction Status Date / Time codeine Allergy Unknown RASH Verified 04/13/17 18:31 prochlorperazine Allergy Unknown Verified 04/13/17 18:31 Sulfa (Sulfonamide Allergy Unknown Verified 04/13/17 18:31 Antibiotics) - Vital Signs Vital Signs: Temperature 98.5 F 05/25/17 10:48 Pulse Rate 67 05/25/17 10:48 Respiratory Rate 8 L 05/25/17 11:48 Blood Pressure 108/54 05/25/17 10:48 Pulse Oximetry 94 05/25/17 11:48 Height and Weight: Height 5 ft 6 in Weight 139.2 kg Body Mass Index 49.8 - Medications Inpatient Medications: Current Medications Albuterol Sulfate (Proventil Neb (0.083%)) 2.5 mg AEROSOL Q4H PRN Albuterol/Ipratropium (Duoneb) 3 ml AEROSOL RTQID PRN Last Admin: 05/25/17 11:47 Dose: 3 ml Potassium Chloride 10 meq/ (Dextrose/Sodium Chloride) 1,005 mls @ 150 mls/hr IV .Q6H42M BRANDAN Last Infusion: 05/25/17 10:27 Dose: Infused Sodium Chloride (Normal Saline) 1,000 mls @ 0 mls/hr IV .Q0M BRANDAN PRN Reason: As Directed Last Admin: 05/25/17 11:17 Dose: 50 mls/hr Insulin Aspart (Novolog) 5 - 9 unit SQ PRN PRN Last Admin: 05/25/17 09:03 Dose: 5 unit Morphine Sulfate (Morphine Sulfate Inj) 2 - 5 mg IVP Q4H PRN PRN Reason: Pain Ondansetron HCl (Zofran) 4 mg IVP Q4H PRN PRN Reason: Nausea &/or vomiting Sodium Chloride (Iv Flush) 10 - 80 ml IVF PRN PRN PRN Reason: Flushing Last Admin: 05/24/17 23:45 Dose: 10 ml Home Medications: Home Medications Medication Instructions Recorded Confirmed Type Metoprolol Succinate 25 mg PO DAILY #0 10/17/08 05/24/17 History Quetiapine Fumarate [Seroquel] 100 mg PO HS #0 10/17/08 05/24/17 History Ropinirole [Requip] 1 mg PO BID #0 10/17/08 05/24/17 History Albuterol Neb (0.083%) [Proventil 2.5 mg AEROSOL Q6HR PRN 11/22/16 05/24/17 History Neb (0.083%)] Desvenlafaxine SR [Pristiq] 50 mg PO DAILY 11/22/16 05/24/17 History Allopurinol [Zyloprim] 100 mg PO DAILY 04/13/17 05/24/17 History Atorvastatin [Lipitor] 20 mg PO HS 04/13/17 05/24/17 History Cyanocobalamin (Vitamin B-12) 1,000 mcg PO DAILY 04/13/17 05/24/17 History [Vitamin B-12] Furosemide [Lasix] 40 mg PO BID 04/13/17 05/24/17 History Gabapentin 300 mg PO TID 04/13/17 05/24/17 History Hydrocodone/APAP 10/325 [[place] 1 tab PO BID 04/13/17 05/24/17 History 10/325] Omeprazole [Prilosec] 20 mg PO DAILY 04/13/17 05/24/17 History Potassium Chloride [Klor-Con M20] 20 meq PO BID 04/13/17 05/24/17 History Rivaroxaban [Xarelto] 20 mg PO HS 04/13/17 05/24/17 History Is Patient on Beta Kiana?: Yes - Medical History Respiratory: Reports: Asthma, Chronic Obstructive Pulmonary Disease (COPD), Dyspnea, Pulmonary Embolism (6 months ago- Xarelto (last dose 05/24/17)), Sleep Apnea Cardiovascular: Reports: Abnormal EKG, Angina, Arrhythmia, Coronary Artery Disease (cardiac cath showed CAD, no intervention), Heart Murmur, Hypertension, High Cholesterol DENIES: Congestive Heart Failure, Hypotension, Myocardial Infarction, Rheumatic Fever, Valvular Heart Disease Comment Only: Other (Recent Cath/stress test/echo with Dr. Conn. no negative results) Gastrointestional: Reports: Hepatitis (hx hep C, no liver disfunction), Gastroesophageal Reflux Disease (moderate), Morbid Obesity Neuro/Musculoskeletal: Reports: HX.MS.OSAR, Back Problems, Cerebrovascular Accident (minor right sided weakness and right facial droop), Depression, Headaches, Syncope Renal/Endocrine: Reports: Diabetes Mellitus Type 2 (IDDM), Renal Failure (CKD stage 3) Other History: Reports: Cancer (rt breast) DENIES: Anesthesia Reactions, Now, Blood Transfusions, Chemotherapy , Hemophilia, Malignant Hyperthermia, Sickle Cell Disease, Other - Surgical History HEENT Surgeries: Reports: Eye Surgery (cataracts), Oral Surgery (tooth removal for dentures) Cardiac Surgeries/Treatments: Reports: Cardiac Catheterization (clear heart cath ) Respiratory Surgery/Treatments: Reports: CPAP Use GI Surgery/Treatments: Reports: Cholecystectomy, Hernia Repair, Colonoscopy Musculoskeletal Surgery/Tx: Reports: Total Knee Replacement (bilateral), Other ( 2nd toe, R foot removed) Reproductive Surgery/Treatment: Reports: Lumpectomy (x2, cancerous in RT- radiation), Tubal Ligation Anesthesia Reactions: None Hx Family Anesthesia Reaction: No - Social History Smoking Status: Former smoker (quit 10 months ago) Hx Chewing Tobacco Use: No Second Hand Exposure: No Substance Use Type: does not use Alcohol Intake Frequency: does not drink - Pertinent Findings EKG: Sinus Rhythm EKG Ectopy: Frequent PVC (occassionally in trigeminy) - Physical Exam Respiratory Exam: Present: bilateral breath sounds equal (slightly coarse, and states mildly SOB (not abnormal for pt)) Cardiovascular Exam: Present: regular rate and rhythm - Airway Assessment Mallampati Score: III TMD: 3 Fingerbreadths Teeth: upper dentures, lower dentures Overall Assessment: may be difficult intubation, other (aspiration precautions) - ASA ASA Score: 4 - Plan Anesthesia: General Inhalation Gases - Discussion Discussion: Discussed risks/options/alternatives of anesthesia and questions answered. Patient consents. Nursing pain assessment noted. Present for Discussion: children (daughter) Attestation Statement: Prior to the delivery of any anesthetic medication, I examined the patient, developed the plan, obtained the patient's consent and discussed the risk and benefits of the procedure with the patient/guardian. - Additional Information Seen by Anesthesia: Yes
[2017-05-25] MEDS ORDERED: SUCCINYLCHOLINE 20mg/mL 10mL INJECTION ONE (13:24)
[2017-05-25] MEDS ORDERED: LIDOCAINE VISCOUS 2% ORAL LIQUID 15ml ONE (13:27)
[2017-05-25] MEDS ORDERED: PHENYLEPHRINE INJ 10 MG/ML VIAL IV ONE (13:51)
[2017-05-25] MEDS ORDERED: CEFAZOLIN 1 G INJECTION IVP ONE (14:00)
[2017-05-25] MEDS ORDERED: CEFAZOLIN 1 G INJECTION ONE (14:00)
[2017-05-25] MEDS ORDERED: BUPIV 0.25% 30ml/LIDO 1% 30ml MIXTURE ID ONE (14:00)
[2017-05-25] MEDS ORDERED: SALINE FLUSH 10ml SYRINGE ONE (14:00)
[2017-05-25] MEDS ORDERED: SUGAMMADEX 200mg/2ml INJECTION IVP ONE (15:54)
[2017-05-25] MEDS: MORPHINE SULFATE 10 MG/ML VIAL IVP PRN ×3 (16:27→17:00)
--- NOTE | 2017-05-25 16:33 | Remote Fluorsocopy Report ---
Indication: ORIF LEFT FEMUR PROCEDURE: RF femur LT: Encounter: Initial Comparison: Left knee radiographs from today Findings: Seven fluoroscopic spot images are submitted for interpretation. Images show open reduction and internal fixation of the distal femoral periprosthetic fracture placement of a lateral side plate and multiple screws with improved alignment of the fracture fragments. Impression: Fluoroscopy as above. Fluoroscopy time is 241.5 seconds. Fluoroscopy dose is 7260 mRad. .
--- NOTE | 2017-05-25 17:17 | Anesthesia Postoperative Note ---
- Date and Time Date: 05/25/17 Time: 17:16 - Status Patient Participated in Evaluation: Patient Participated in Person Vital Signs: Temperature 97.5 F 05/25/17 17:05 Pulse Rate 78 05/25/17 17:10 Respiratory Rate 27 H 05/25/17 17:10 Blood Pressure 114/74 05/25/17 17:10 Pulse Oximetry 100 05/25/17 17:10 Respiratory Function: Airway Patent, Regular Respirations Cardiovascular Function: Irregular Pulse EKG: Sinus Rhythm Mental Status: Alert and Oriented Pain Intensity: 5 Hydration: IV Infusing Complications During Recover: None Apparent - Follow-Up Instructions Instructions: Per Surgeon
[2017-05-25] MEDS ORDERED: SENNA + DOCUSATE TABLET PO PRN (17:19)
[2017-05-25] MEDS ORDERED: NS 1,000 ML IV SCH (17:19)
[2017-05-25] MEDS ORDERED: MORPHINE SULFATE 10 MG/ML VIAL IVP PRN (17:19)
[2017-05-25] MEDS: NOZIN NASAL SWAB NAS SCH (17:26)
[2017-05-25] MEDS: D5NS 1,000 ML IV SCH (18:41)
[2017-05-25] MEDS: MORPHINE SULFATE 10 MG SYRINGE IVP PRN (21:12)
[2017-05-25] MEDS: ENOXAPARIN 40 MG/0.4 ML INJECTION SQ SCH (21:13)
[2017-05-25] MEDS: CEFAZOLIN 3 G in NS 100 ML IV SCH (21:14)
[2017-05-26] MEDS: MORPHINE SULFATE 10 MG SYRINGE IVP PRN ×2 (02:16→09:10)
[2017-05-26] MEDS: NOZIN NASAL SWAB NAS SCH ×3 (02:17→19:44)
[2017-05-26] MEDS: Oxycodone *IR* 5 MG TABLET PO PRN ×3 (06:02→19:48)
[2017-05-26] MEDS: CEFAZOLIN 3 G in NS 100 ML IV SCH (06:06)
--- NOTE | 2017-05-26 08:01 | Operative Note ---
DATE OF PROCEDURE 05/25/2017 PREOPERATIVE DIAGNOSIS Left distal femoral periprosthetic fracture. POSTOPERATIVE DIAGNOSIS Left distal femoral periprosthetic fracture. PROCEDURE Open reduction internal fixation of left distal femoral periprosthetic fracture. SURGEON Siva Menendez MD DIRECTOR [employer]ENT MARKETING Yevgeniy Marino PA-C COMPLICATIONS None. ANESTHESIA General. FLUIDS Please see Anesthetic Records. EBL Please see Anesthetic Records. DESCRIPTION OF PROCEDURE Mrs. Flores and her left leg were identified and marked in the preoperative holding area. She was brought back to the operating suite and placed supine on the operating table. She was placed under general anesthesia and Intubated. The left lower extremity was prepped and draped in my normal sterile fashion. This surgery was made more difficult by the patient's body habitus. Fluoroscopic images were taken with the bump under her knee. The bump did help align things better on the lateral view, but reduction was not attainable with closed methods on the AP view. With this and because there was not much good bone quality distally, we decided to proceed with plate fixation. A 15 cm lateral incision centered over the distal femur was made. Sharp dissection was carried down through abundant subcutaneous fat until the IT band was incised in line with the skin incision. Muscle was then bluntly dissected with a Hawkins elevator until the fracture site was identified. Fracture hematoma was evacuated. The lateral spike that appeared to be a part of the distal fragment was its own separate fragment. I was able to reduce the fracture using a bone hook to pull the main shaft fracture back to the distal femur. It was also reduced on the lateral view using a _peaked form?_. An elevator was used to strip the periosteum laterally and then a 12-hole distal locking plate was selected and placed in a submuscular fashion up to the proximal femur. It was centered over the distal femur and checked in multiple fluoroscopic views. It was then fixed distally with six locking screws using a locking plate guiding arm. Before the six screws were placed, I did place one K-wire proximally through a poke hole in the most proximal hole to make sure the proximal plate was centered on the lateral view. I then placed a whirlybird in screw hole #4 to help reduce the plate down to the bone. This did a nice job of this, but we did lose a little bit of reduction in the AP view. I then proceeded to place a total of nine locking screws in the shaft, the four most proximal of which were placed through poke holes. The remaining were placed through the original incision. Multiple fluoroscopic images were taken before the aiming arm was removed. The wound was thoroughly irrigated. The muscle fascia was repaired with #1 Vicryl. The IT band was also repaired with #1 Vicryl. The subcutaneous tissue and fatty layer was repaired with 2-0 Vicryl. Mark were used in the skin. She was placed back into a knee immobilizer. She was allowed to awaken from general anesthesia and then taken to the recovery room under the care of Anesthesia. We did start one unit of blood intraoperatively and hemoglobin will be checked in the recovery room. She remained stable throughout the case. MILO
--- NOTE | 2017-05-26 08:05 | Family Practice Progress Note ---
Progress Note-A&P - Time Spent With Patient Total time spent is greater than 50% in coordination of care (as documented) at patient's floor/unit and/or counseling patient: (1) Femur fracture, left Status: Acute Current Visit: Yes (2) CKD (chronic kidney disease) stage 3, GFR 30-59 ml/min Status: Chronic Assessment and plan: Stable Current Visit: No (3) DM type 2 (diabetes mellitus, type 2) Status: Acute Assessment and plan: Restarting insulin at lower doses than normal. She is on full liquid diet right now. Current Visit: No (4) Wound, open, toe Problem details: Right great toe Status: Chronic Assessment and plan: Change dressing tomorrow. Current Visit: No (5) HTN (hypertension) Status: Chronic Current Visit: No (6) Periprosthetic fracture around internal prosthetic joint Status: Acute Current Visit: Yes (7) Acute hyperkalemia Status: Acute Assessment and plan: Recheck potassium and continue ivf wo potassium. Current Visit: Yes (8) Anemia following surgery Status: Acute Assessment and plan: Recheck h/h this afternoon. Cbc tomorrow. Current Visit: Yes (9) Lima catheter in place Start date: 05/24/17 Status: Acute Current Visit: Yes Subjective - Subjective Principal diagnosis: Status post ORIF left femur fracture Interval history: She reports that she had pain last night but medication helped. She denies nausea or vomiting or diarrhea. She denies feelling sob. She is not passing gas. Exam Vital signs: Temperature 96.5 F L 05/25/17 17:20 Pulse Rate 88 05/26/17 05:00 Respiratory Rate 16 05/26/17 05:00 Blood Pressure 113/51 05/26/17 05:00 Pulse Oximetry 94 05/26/17 05:00 - Constitutional no acute distress, obese - Routine HEENT Exam Head: Present: normocephalic - Routine Neck Exam Present: supple - Routine Respiratory Exam Present: CTA bilaterally - Routine Cardiovascular Exam Present: RRR - Routine Abdominal Exam Present: soft, normoactive bowel sounds - Urinary Catheter Management Urethral Cath placed during this visit: yes Insertion date: 05/25/17 Insertion time: 02:25 Progress Note: Quality - Stroke Onset of Symptoms Time: 22:00
--- NOTE | 2017-05-26 08:12 | Orthopedic Progress Note ---
Date: Date: 05/26/17 Time: 807 Subjective/Severity of Illness: Lauren is reporting moderate pain in the leg but improved from last night. She has not been up yet. Reports chronic neuropathy in her LE and doesn't have much feeling in her feet. Denies cough or unusual SOA. She is on a little oxygen this AM. Blood sugars have been 93-[address] Boudreaux is managing this. Hgb 8.3 and well tolerated while at rest. Will need to monitor for symptoms when she gets up. Creat and BUN are stable this AM. K+ a little elevated at 5.4 On Lovenox and using SCDs for DVT coverage. Xarelto on hold for now. Orthopedic Objective PO Vital signs: Temperature 96.5 F L 05/25/17 17:20 Pulse Rate 88 05/26/17 05:00 Respiratory Rate 16 05/26/17 05:00 Blood Pressure 113/51 05/26/17 05:00 Pulse Oximetry 94 05/26/17 05:00 Height and Weight: Height 5 ft 6 in Weight 306 lb 14.135 oz Body Mass Index 49.8 - Constitutional General Appearance: Present: alert, orientated x3, mild distress, morbidly obese - Respiratory Exam Present: non-labored - Abdominal Exam Present: soft. Absent: tenderness - Extremities Exam Extremities: Present: pulses intact - Knee Exam Comments: Large immobilizer splint and bandages in place. No drainage on the bandages. - Surgical Site Incision: dressing intact, no drainage - Integumentary Exam Present: pink, warm, dry - Neurological Exam Present: no deficits (periperal neuropathy.) - Psychiatric Exam Present: normal affect - Labs Result Diagrams: 05/26/17 04:23 05/26/17 04:23 Abnormal lab results 05/25/17 05/26/17 05/26/17 Range/Units 16:31 04:23 04:23 RBC 3.32 L (4.00-5.20) M/MM3 Hgb 9.4 L D 8.3 L D (12-16) GM/DL Hct 28.9 L D (36-46) % MCH 25.0 L (26-34) UUG MCHC 28.7 L (31-37) GM/DL Neut % (Auto) 79.6 H (33-66) % Lymph % (Auto) 11.3 L (23-45) % Neut # (Auto) 8.2 H (1.8-7.7) T/MM3 Potassium 5.4 H (3.6-5) MEQ/L Chloride 113 H (98-107) MEQ/L BUN 26.0 H (7-17) MG/DL Creatinine 1.3 H D (0.7-1.2) MG/DL Glucose 144 H (65-110) MG/DL Calculated Osmolality 285 H (261-280) MOSM/KG Calcium 8.1 L D (8.4-10.2) MG/DL H & H 05/25/17 05/26/17 Range/Units 16:31 04:23 Hgb 9.4 L D 8.3 L D (12-16) GM/DL Hct 28.9 L D (36-46) % Orthopedic Assessment and Plan (1) Periprosthetic fracture around internal prosthetic joint Status: Acute Qualifiers: Qualified Code(s): M97.12XA - Periprosthetic fracture around internal prosthetic left knee joint, initial encounter; T84.043A - Periprosthetic fracture around internal prosthetic left knee joint, initial encounter - Anticoagulation Therapy Anticoagulation: other (Lovenox x 5 days then resume Xarelto if wounds are looking okay.) Hospital Course Summary Disclaimer: The visit summary below is not to be considered part of the above Progress Note.
[2017-05-26] MEDS ORDERED: INSULIN ASPART 100unit/ml INJECTION SQ ONE (08:45)
[2017-05-26] MEDS ORDERED: INSULIN DETEMIR 100unit/ml INJECTION SQ SCH (09:00)
[2017-05-26] MEDS ORDERED: INSULIN ASPART 100unit/ml INJECTION SQ SCH ×2 (12:00→17:30)
[2017-05-26] MEDS: D5NS 1,000 ML IV SCH (13:01)
[2017-05-26] MEDS ORDERED: ACETAMINOPHEN 500 MG TABLET PO SCH (16:00)
--- NOTE | 2017-05-26 16:25 | Wound Care Progress Note ---
Wound Management - Patient Status Premedicated Prior to Dressing Change: No - Wound Right Great Toe Wound Type: Diabetic Foot Ulcer Wound Present on Admission?: Yes Length: 0.4 Width: 0.4 Depth: 0.5 Wound Bed Appearance: Beefy Red, Eschar [place] Wound Appearance: [place] Tunneling: No Undermining: No Drainage Description: Sanguineous Drainage Amount: Small Drainage Odor: No Odor Dressing Status: Changed Primary Dressing: Foam Dressing Dressing Change Date: 05/26/17 Dressing Change Time: 16:24 Dressing Change Patient Tolerance: Tolerated Well (Pt states she will be going to a skilled unit for awhile to recover)
[2017-05-26] MEDS ORDERED: NS FLUSH BAG 500ml IV PRN (16:38)
[2017-05-26] MEDS ORDERED: MORPHINE SULFATE 4mg INJECTION IVP PRN (17:00)
[2017-05-26] MEDS: ENOXAPARIN 40 MG/0.4 ML INJECTION SQ SCH (21:54)
[2017-05-27] MEDS: NOZIN NASAL SWAB NAS SCH ×3 (02:17→16:42)
[2017-05-27] MEDS: Oxycodone *IR* 5 MG TABLET PO PRN (05:10)
--- NOTE | 2017-05-27 07:44 | Orthopedic Progress Note ---
Date: Date: 05/27/17 Time: 740 Subjective/Severity of Illness: Lauren's main complaint this AM is pain/ spasm in her leg She has been on Oxycodone 15mg and has needed IV Morphine for breakthrough pain. She normally takes Margie 10/325 at home, she says "I'm allowed 2 tabs per day". She denies chest pain or shortness of breath. PT was very painful yesterday. She is a full lift. She states Dr. Boudreaux is planning on halfway placement. She denies nausea and has had flatus. Hgb is 8.4. Orthopedic Objective PO Vital signs: Temperature 98.1 F 05/27/17 04:00 Pulse Rate 82 05/27/17 04:00 Respiratory Rate 18 05/27/17 04:00 Blood Pressure 142/66 H 05/27/17 04:00 Pulse Oximetry 91 05/27/17 04:00 Height and Weight: Height 5 ft 6 in Weight 316 lb 9.341 oz Body Mass Index 49.8 - Constitutional General Appearance: Present: alert, orientated x3, mild distress, morbidly obese - Respiratory Exam Present: non-labored - Abdominal Exam Present: soft. Absent: tenderness - Extremities Exam Extremities: Present: pulses intact - Surgical Site Incision: dressing intact, no drainage - Integumentary Exam Present: pink, warm, dry - Neurological Exam Present: no deficits (peripheral neuropathy.) - Psychiatric Exam Present: normal affect - Wound Management Right Great Toe Wound Type: Diabetic Foot Ulcer Wound Length: 0.4 Wound Width: 0.4 Wound Depth: 0.5 Bed Appearance: Beefy Red, Eschar Surrounding Tissue Appearance: [place] Drainage Description: Sanguineous Drainage Amount: Small Drainage Odor: No Odor Dressing Status: Changed Dressing Change Date: 05/26/17 Dressing Change Time: 16:24 Dressing Change Patient Tolerance: Tolerated Well (Pt states she will be going to a skilled unit for awhile to recover) - Labs Result Diagrams: 05/27/17 04:28 05/27/17 04:28 Abnormal lab results 05/26/17 05/26/17 05/26/17 Range/Units 09:03 15:29 20:50 RBC (4.00-5.20) M/MM3 Hgb 7.8 L 8.1 L (12-16) GM/DL Hct (36-46) % MCH (26-34) UUG MCHC (31-37) GM/DL Neutrophils % (Manual) (33-66) % Lymphocytes % (Manual) (23-45) % Neutrophils # (Manual) (1.8-7.7) T/MM3 Potassium 5.2 H (3.6-5) MEQ/L BUN (7-17) MG/DL Creatinine (0.7-1.2) MG/DL Glucose (65-110) MG/DL 05/27/17 05/27/17 Range/Units 04:28 04:28 RBC 3.33 L (4.00-5.20) M/MM3 Hgb 8.4 L (12-16) GM/DL Hct 28.6 L (36-46) % MCH 25.2 L (26-34) UUG MCHC 29.4 L (31-37) GM/DL Neutrophils % (Manual) 80.0 H (33-66) % Lymphocytes % (Manual) 12.0 L (23-45) % Neutrophils # (Manual) 8.5 H (1.8-7.7) T/MM3 Potassium (3.6-5) MEQ/L BUN 25.0 H (7-17) MG/DL Creatinine 1.3 H (0.7-1.2) MG/DL Glucose 155 H (65-110) MG/DL H & H 05/25/17 05/26/17 05/26/17 Range/Units 16:31 04:23 15:29 Hgb 9.4 L D 8.3 L D 7.8 L (12-16) GM/DL Hct 28.9 L D (36-46) % 05/26/17 05/27/17 Range/Units 20:50 04:28 Hgb 8.1 L 8.4 L (12-16) GM/DL Hct 28.6 L (36-46) % Orthopedic Assessment and Plan (1) Periprosthetic fracture around internal prosthetic joint Status: Acute Qualifiers: Internal joint prosthesis site: knee Encounter type: initial encounter Laterality: left Qualified Code(s): M97.12XA - Periprosthetic fracture around internal prosthetic left knee joint, initial encounter; T84.043A - Periprosthetic fracture around internal prosthetic left knee joint, initial encounter Assessment and Plan: I'll switch her pain medication to Margie 7.5/325 1-2 PO Q4H prn and discontinue Oxycodone. Ortho appreciates any input from Dr. Boudreaux in this regard as well. Continue Lovenox for initial 5 days post op, then check wounds. If wounds look to be healing well, then restart Xarelto. Continue PT Hospital Course Summary Disclaimer: The visit summary below is not to be considered part of the above Progress Note.
--- NOTE | 2017-05-27 07:53 | Family Practice Progress Note ---
Progress Note-A&P - Time Spent With Patient Total time spent is greater than 50% in coordination of care (as documented) at patient's floor/unit and/or counseling patient: (1) Femur fracture, left Status: Acute Assessment and plan: Possible dc tomorrow to SWV PRA. Current Visit: Yes (2) CKD (chronic kidney disease) stage 3, GFR 30-59 ml/min Status: Chronic Assessment and plan: Stable Current Visit: No (3) DM type 2 (diabetes mellitus, type 2) Status: Acute Assessment and plan: Advancing to regular diet and increasing insulin levels. Current Visit: No (4) Wound, open, toe Problem details: Right great toe Status: Chronic Assessment and plan: Wound care came yesterday and changed dressing. Current Visit: No (5) HTN (hypertension) Status: Chronic Current Visit: No (6) Periprosthetic fracture around internal prosthetic joint Status: Acute Current Visit: Yes (7) Acute hyperkalemia Status: Resolved Assessment and plan: Resolved Current Visit: Yes (8) Anemia following surgery Status: Acute Assessment and plan: Given one unit of prbc yesterday evening. hgb stable today. Continue to follow hgb. Current Visit: Yes (9) Lima catheter in place Status: Acute Assessment and plan: Plan to dc today Current Visit: Yes (10) skilled nursing current use of anticoagulant Status: Acute Assessment and plan: On lovenox currently. Will switch back to zarelto after dc. Current Visit: Yes Subjective - Subjective Principal diagnosis: S/P orif femur fx. Interval history: She reports tolerating full liquids well. No low bgms. She is passing gas from the rectum but no bm yet. Pain is tolerated ok with oral pain medication. Exam Vital signs: Temperature 98.1 F 05/27/17 04:00 Pulse Rate 82 05/27/17 04:00 Respiratory Rate 18 05/27/17 04:00 Blood Pressure 142/66 H 05/27/17 04:00 Pulse Oximetry 91 05/27/17 04:00 - Constitutional no acute distress - Routine Neck Exam Present: supple - Routine Respiratory Exam Present: CTA bilaterally - Routine Cardiovascular Exam Present: RRR - Routine Abdominal Exam Present: soft, normoactive bowel sounds, non tender - Urinary Catheter Management Urethral Cath placed during this visit: yes Insertion date: 02/13/18 Insertion time: 02:25 Progress Note: Quality - Stroke Onset of Symptoms Time: 22:00
[2017-05-27] MEDS ORDERED: INSULIN ASPART 100unit/ml INJECTION SQ SCH ×2 (08:00→08:03)
[2017-05-27] MEDS: HYDROCODONE/APAP 7.5 MG/325 MG TABLET PO PRN ×4 (10:57→21:44)
[2017-05-27] MEDS: INSULIN DETEMIR 100unit/ml INJECTION SQ SCH ×2 (11:02→11:04)
[2017-05-27] MEDS: INSULIN ASPART 100unit/ml INJECTION SQ SCH (16:31)
[2017-05-27] MEDS ORDERED: NS 1,000 ML IV ONE (18:42)
[2017-05-27] MEDS: ENOXAPARIN 40 MG/0.4 ML INJECTION SQ SCH (21:22)
[2017-05-28] MEDS: NOZIN NASAL SWAB NAS SCH ×2 (01:19→08:35)
[2017-05-28] MEDS: HYDROCODONE/APAP 7.5 MG/325 MG TABLET PO PRN ×2 (06:11→10:29)
[2017-05-28 07:48] VITALS: RESP 18
[2017-05-28] MEDS ORDERED: INSULIN ASPART 100unit/ml INJECTION SQ SCH (08:00)
[2017-05-28] MEDS: INSULIN DETEMIR 100unit/ml INJECTION SQ SCH (08:35)
--- NOTE | 2017-05-28 08:41 | Family Practice Progress Note ---
Progress Note-A&P - Time Spent With Patient Total time spent is greater than 50% in coordination of care (as documented) at patient's floor/unit and/or counseling patient: (1) Femur fracture, left Status: Acute Assessment and plan: Dc to [facility] PRA. Will use norco for pain and should be non weight bearing until cleared by ortho Current Visit: Yes (2) CKD (chronic kidney disease) stage 3, GFR 30-59 ml/min Status: Chronic Assessment and plan: Stable Current Visit: No (3) DM type 2 (diabetes mellitus, type 2) Status: Acute Assessment and plan: Stable Current Visit: No (4) Wound, open, toe Problem details: Right great toe Status: Chronic Assessment and plan: Stable. Next dressing change is Wednesday Current Visit: No (5) HTN (hypertension) Status: Chronic Current Visit: No (6) Periprosthetic fracture around internal prosthetic joint Status: Acute Current Visit: Yes (7) Acute hyperkalemia Status: Resolved Assessment and plan: Resolved Current Visit: Yes (8) Anemia following surgery Status: Acute Assessment and plan: She has had 2 units in the hospital. I am going to add iron as an out pt and follow hemoglobin after dc. Current Visit: Yes (9) Kumar catheter in place Status: Acute Assessment and plan: After kumar was dc'ed she was not able to urinate and so it was replaced last night. Will restart bladder training today. Current Visit: Yes (10) terminal gauger current use of anticoagulant Status: Acute Assessment and plan: DC lovenox and start zarelto today Current Visit: Yes (11) Urinary retention Status: Acute Assessment and plan: Bladder training today. Current Visit: Yes Subjective - Subjective Interval history: She had trouble urinating after the kumar was dc'ed. She had cather replaced and she denies pain. She has pain well controlled with oral pain medication. She is able to eat wo nausea. She is passing gas but has not had a bm. She denies fever chills or sweats. Exam Vital signs: Temperature 97.3 F 05/28/17 07:46 Pulse Rate 72 05/28/17 07:46 Respiratory Rate 18 05/28/17 07:46 Blood Pressure 132/69 05/28/17 07:46 Pulse Oximetry 94 05/28/17 07:46 - Constitutional no acute distress - Routine HEENT Exam Head: Present: normocephalic, atraumatic - Routine Neck Exam Present: supple - Routine Respiratory Exam Present: CTA bilaterally - Routine Cardiovascular Exam Present: RRR - Routine Abdominal Exam Present: soft, non distended, non tender - Routine Extremities Exam Comments: Her right foot is warm and has a trace edema. PT and DP pulse is difficult to find. - Urinary Catheter Management Urethral Cath placed during this visit: yes, but has since been removed by the nurse Insertion date: 05/27/17 Insertion time: 21:40 Removal date: 05/27/17 Removal time: 11:15 Progress Note: Quality - Stroke Onset of Symptoms Time: 22:00
--- NOTE | 2017-05-28 09:05 | Discharge Summary ---
Providers Date of admission: 05/25/17 01:35 Primary care physician: Yaakov Boudreaux MD Consults: 05/25/17 07:35 [facility] Consult [CONS] Routine 05/26/17 13:42 Physician Consult [CONS] Routine Consulting Provider: Salena Koenig Reason For Exam: CONT CARE Ordering Provider has Notified Supervisor Polishing: Yes Dr. Menendez Diagnosis - Discharge Diagnosis (1) Femur fracture, left Status: Acute (2) CKD (chronic kidney disease) stage 3, GFR 30-59 ml/min Status: Chronic (3) DM type 2 (diabetes mellitus, type 2) Status: Acute (4) Wound, open, toe Status: Chronic Problem details: Right great toe (5) HTN (hypertension) Status: Chronic (6) Periprosthetic fracture around internal prosthetic joint Status: Acute (7) Acute hyperkalemia Status: Resolved (8) Anemia following surgery Status: Acute (9) Kumar catheter in place Status: Acute (10) skilled nursing current use of anticoagulant Status: Acute (11) Urinary retention Status: Acute Summary Hospital course: She was admitted during the evening on 05/24/15. Surgery performed on the following day. She did receive 2 units prbc for anemia. DC hemoglobin was 7.4. She has kumar in place. Bladder training was performed on and kumar dc' ed on the . She did not tolerate and it was replaced in the evening. She had stable blood sugars through out the hospital stay. - Time Spent with Patient Total time spent providing and/or coordinating discharge services: Less than 30 minutes Exam Vital signs: Temperature 97.3 F 05/28/17 07:46 Pulse Rate 72 05/28/17 07:46 Respiratory Rate 18 05/28/17 07:46 Blood Pressure 132/69 05/28/17 07:46 Pulse Oximetry 92 05/28/17 08:53 DS: Data Completed studies during hospitalization [Text]: Procedures Detachment at Right 2nd Toe, Complete, Open Approach (11/22/16) Excision of Right Foot Skin, External Approach (11/22/16) Labs on day of discharge: Labs from last 24 hours 05/28/17 05/28/17 05/27/17 07:40 07:39 21:30 WBC 9.1 RBC 2.90 L Hgb 7.5 L Hct 24.8 L D MCV 85.5 MCH 25.9 L MCHC 30.2 L RDW Std Deviation 47.8 Plt Count 138 MPV 11.0 Immature Gran % (Auto) 0.1 Neut % (Auto) 68.9 H Lymph % (Auto) 17.9 L [place] % (Auto) 8.6 Eos % (Auto) 4.3 H Baso % (Auto) 0.2 Neut # (Auto) 6.2 Lymph # (Auto) 1.6 [place] # (Auto) 0.8 Eos # (Auto) 0.4 Baso # (Auto) 0.0 Abs Immat Gran (auto) 0.01 Neutrophils % (Manual) 73.0 H Band Neutrophils % 1.0 Lymphocytes % (Manual) 14.0 L Monocytes % (Manual) 9.0 Eosinophils % (Manual) 3.0 Neutrophils # (Manual) 6.6 Band Neutrophils # 0.1 Lymphocytes # (Manual) 1.3 Monocytes # (Manual) 0.8 Eosinophils # (Manual) 0.3 Anisocytosis 1+ RBC Morph Comment Abnormal Turbidity < 20 Sodium 138 Potassium 4.6 Chloride 108 H Carbon Dioxide 23 Anion Gap 7 BUN 26.0 H Creatinine 1.2 GFR Calculation 44 BUN/Creatinine Ratio 22 Glucose 128 H Glucometer 155 Calculated Osmolality 273 Calcium 8.8 Icterus Index < 2 Specimen Hemolysis < 15 05/27/17 05/27/17 14:28 10:55 WBC RBC Hgb Hct MCV MCH MCHC RDW Std Deviation Plt Count MPV Immature Gran % (Auto) Neut % (Auto) Lymph % (Auto) [place] % (Auto) Eos % (Auto) Baso % (Auto) Neut # (Auto) Lymph # (Auto) [place] # (Auto) Eos # (Auto) Baso # (Auto) Abs Immat Gran (auto) Neutrophils % (Manual) Band Neutrophils % Lymphocytes % (Manual) Monocytes % (Manual) Eosinophils % (Manual) Neutrophils # (Manual) Band Neutrophils # Lymphocytes # (Manual) Monocytes # (Manual) Eosinophils # (Manual) Anisocytosis RBC Morph Comment Turbidity Sodium Potassium Chloride Carbon Dioxide Anion Gap BUN Creatinine GFR Calculation BUN/Creatinine Ratio Glucose Glucometer 204 173 Calculated Osmolality Calcium Icterus Index Specimen Hemolysis DS: Plan - Discharge Medications/Orders Prescriptions: New Ferrous Sulfate 325 mg PO BID 28 Days #56 tab MDD 650 mg Continue Quetiapine Fumarate [Seroquel] 100 mg PO HS #0 Desvenlafaxine SR [Pristiq] 50 mg PO DAILY Albuterol Neb (0.083%) [Proventil Neb (0.083%)] 2.5 mg AEROSOL Q6HR PRN PRN Reason: Shortness Of Air Cyanocobalamin (Vitamin B-12) [Vitamin B-12] 1,000 mcg PO DAILY Atorvastatin [Lipitor] 20 mg PO HS Potassium Chloride [Klor-Con M20] 20 meq PO BID Omeprazole [Prilosec] 20 mg PO DAILY Furosemide [Lasix] 40 mg PO BID Allopurinol [Zyloprim] 100 mg PO DAILY Rivaroxaban [Xarelto] 20 mg PO HS Ropinirole [Requip] 1 mg PO BID #0 Metoprolol Succinate 25 mg PO DAILY #0 Gabapentin 300 mg PO TID Changed Hydrocodone/APAP 10/325 [[place] 10/325] 1 tab PO QID PRN 28 Days #1 bottle MDD 40 mg PRN Reason: Pain - Patient/Caregiver Discharge Instructions Patient Instructions: Blood Transfusion (GEN) - Follow up Plan Follow up with: Yevgeniy Marino PA [Physician Paster Supervisor] - 2 Weeks Disposition: 03 To [facility] Not [facility] ([facility])
[2017-05-28 10:51] VITALS: BP 125/50; PULSE 74; TEMP 96; O2SAT 91
--- NOTE | 2017-05-28 11:32 | Extended Care Facility Orders ---
Admission Orders Admit to:: [facility] Allergies/Adverse Reactions: Allergies codeine Allergy (Unknown, Verified 04/13/17 18:31) RASH prochlorperazine Allergy (Unknown, Verified 04/13/17 18:31) Sulfa (Sulfonamide Antibiotics) Allergy (Unknown, Verified 04/13/17 18:31) Admitting Diagnosis: femur fracture Admitting Physician: Yaakov Boudreaux MD Attending Physician: Yaakov Boudreaux MD Anticiapted Length of Stay: 30 days or less Rehab Potential: fair Rehab Prognosis: fair Diet: 05/27/17 Lunch Regular Diet [DIET] Diet Modifications: May use Facility Protocol or Standing Orders: Yes May have flu vaccine: Yes Evaluations/Treatment: PT, OT [facility] Certification: I certify that SNF services are required to be given on an Inpatient basis because of the patients need for shelter care on a continuing basis for the condition(s) for which he/she received inpatient hospital services prior to his/her transfer to the SNF. SNF inpatient care is necessary for the following reasons Indication for [facility]: Other - Additional Information In Event of Arrest: Start CPR,call 911,send patient to the ER Referrals: Yevgeniy Marino PA [Physician Release Of Information Specialist] - 2 Weeks
[2017-05-28] MEDS: INSULIN ASPART 100unit/ml INJECTION SQ SCH (13:00)
== END 2017-05-28 13:38 | DRG 481 ==
LOC: ED 22:39 → SRG 05-25 01:35
PROVIDERS: ADMIT Family Medicine; ATTEND Family Medicine

== ENCOUNTER 2017-10-26 07:30 | Inpatient (IN) ==
--- OUTSIDE RECORDS SUMMARY | 2017-11-02 06:57 | External Medical Summary | Referral Summary ---
:1945 Author Organization [facility] [address] [place] [id number] Care Team Providers Name Role Phone Oskar Rosenthal Primary Care Physician Encounter [facility] [id number] Date(s): 06/17/16 - 06/17/16 [facility] [address] [place] [phone] Discharge Diagnosis: Apnea, sleep Discharge Diagnosis: CAD (coronary artery disease) Discharge Diagnosis: Breast cancer - right Discharge Diagnosis: Hypertension Discharge Diagnosis: Chronic kidney disease (CKD) Discharge Diagnosis: Diabetes Discharge Diagnosis: Morbid obesity Discharge Diagnosis: Hepatitis C Discharge Diagnosis: Osteopenia Discharge Diagnosis: Arthritis Discharge Diagnosis: Anxiety Discharge Diagnosis: COPD (chronic obstructive pulmonary disease) Discharge Diagnosis: GERD (gastroesophageal reflux disease) Discharge Disposition: 01-Home or Self Care Attending Physician: Oskar Rosenthal MD Admitting Physician: Oskar Rosenthal MD Vital Signs Most recent to oldest [Reference Range]: 1 Blood Pressure [90-140/60-90 mmHg] 120/70 mmHg (06/17/16 1:29 PM) Problem List Condition Effective Dates Status Health Status Informant AMI (acute myocardial Active infarction)(Confirmed) Anxiety(Confirmed) Active CAD (coronary artery Active disease)(Confirmed) Arthritis(Confirmed) Active Breast cancer - right(Confirmed) Active Chronic kidney disease Active (CKD)(Confirmed) COPD (chronic obstructive pulmonary Active disease)(Confirmed) Osteoarthritis, generalized(Confirmed) Active Depression(Confirmed) Active Diabetes(Confirmed) Active Chronic foot pain(Confirmed) Active GERD (gastroesophageal reflux Active disease)(Confirmed) Gout(Confirmed) Active Hepatitis C(Confirmed) Active Hypertension(Confirmed) Active Insomnia(Confirmed) Active Migraine headache(Confirmed) Active Morbid obesity(Confirmed) Active patient Neuropathy(Confirmed) Active Osteoarthritis(Confirmed) Active Osteopenia(Confirmed) Active Overweight(Confirmed) Active Pulmonary embolism(Confirmed) Active Renal insufficiency(Confirmed) Active Apnea, sleep(Confirmed) Active Current smoker(Confirmed) Active Urge incontinence(Confirmed) Active Allergies, Adverse Reactions, Alerts Substance Reaction Severity Status codeine Unknown Active Prochlorperazine Edisylate Active Prochlorperazine Maleate Active Sulfanilamide Active sulfanilamide topical Unknown Active Medications albuterol 2.5 mg/3 mL (0.083%) inhalation solution 2.5 mg 3 mL, Inhalation, q6hr (scheduled), J44.9, # 60 Each, 0 Refill(s), Pharmacy: [id number], 3 mL Inhalation q6hr (scheduled),Instr: J44.9 Start Date: 06/05/15 Status: Orderedallopurinol 100 mg oral tablet See Instructions, TAKE 1 TABLET BY MOUTH EVERY DAY, # 90 tabs, eRx: [facility] [id number], TAKE1 TABLET BY MOUTH EVERY DAY Start Date: 12/30/15 Status: Orderedatorvastatin 20 mg oral tablet See Instructions, TAKE 1 TABLET BY MOUTH DAILY, # 90 tabs, eRx: [facility] [id number], TAKE 1 TABLET BY MOUTH DAILY Start Date: 04/24/16 Status: Orderedcyclobenzaprine 10 mg oral tablet 10 mg 1 tabs, Oral, TID, as needed for spasm, # 90 tabs, 0 Refill(s), Pharmacy: [facility][id number], 1 tabs Oral TID,PRN:as needed for spasm Start Date: 11/07/15 Status: OrderedFLUoxetine 20 mg oral capsule See Instructions, TAKE 1 CAPSULE BY MOUTH THREE TIMES DAILY, # 270 caps, eRx: [facility] [id number], TAKE 1 CAPSULE BY MOUTH THREE TIMES DAILY Start Date: 02/18/16 Status: OrderedFLUoxetine 20 mg oral tablet 20 mg 1 tabs, Oral, TID, # 270 tabs, 0 Refill(s), Pharmacy: [facility] [id number], 1 tabs Oral TID Start Date: 11/07/15 Status: Orderedfurosemide 40 mg oral tablet 40 mg 1 tabs, Oral, Daily, # 180 tabs, eRx: [facility] [id number], TAKE 1 TABLET BY MOUTH TWICEDAILY Start Date: 12/30/15 Status: Orderedgabapentin 300 mg oral capsule See Instructions, TAKE 1 CAPSULE BY MOUTH THREE TIMES DAILY, # 270 caps, 1 Refill(s), eRx: [facility] [id number], TAKE 1 CAPSULE BY MOUTH THREE TIMES DAILY Start Date: 03/10/16 Status: OrderedGlucometer (DME) DME Item Contour meter kit; use as directed, See Instructions, # 1 Each, 0 Refill(s), Supply Start Date: 12/07/13 Status: OrderedGlucometer Lancets (DME) DME Item [facility] Lancets 30 G 100's - Test blood sugars fasting and TID DX: E11.9, See Instructions, # 300 Each, 5 Refill(s), [id number] 100's - Test blood sugars fasting and TID; DX : E11.9, Supply Start Date: 10/17/15 Status: Orderedinsulin detemir 100 units/mL subcutaneous solution 25 units, SubCutaneous, Bedtime (once a day), # 10 mL, 0 Refill(s), Pharmacy: [facility] [id number], 25 units SubCutaneous Bedtime (once a day) Start Date: 11/07/15 Status: OrderedInsulin Pin [place] (DME) DME Item Injecting 4 times a day DX:250.02 31 gauge 8mm, See Instructions, # 100 Each, 11 Refill(s), Pharmacy: [facility] [id number], Injecting 4 times a day; DX:250.02; 31 gauge 8mm, Supply Start Date: 06/05/15 Status: OrderedLevemir FlexTouch 100 units/mL subcutaneous solution See Instructions, INJECT 25 UNITS SUB-Q ONCE DAILY EVERY EVENING DX: E11.9, # 15 mL, 1 Refill(s), Pharmacy: [facility] [id number], INJECT 25 UNITS SUB-Q ONCE DAILY EVERY EVENING; DX: E11.9 Start Date: 03/23/16 Status: OrderedMetoprolol Succinate ER 25 mg oral tablet, extended release See Instructions, TAKE 1 TABLET BY MOUTH ONCE DAILY, # 90 tabs, eRx: [facility] [id number] Start Date: 06/08/16 Status: OrderedMiscellaneous DME DME Item Contour Test Strips Test blood sugars fasting and TID DX E11.9, See Instructions, # 300 Each, 0 Refill(s), Pharmacy: [facility] [id number], Contour Test Strips; Test blood sugars fasting and TID; DX E11.9, Supply Start Date: 10/17/15 Status: OrderedNorco 10 mg-325 mg oral tablet 1-2 tabs, Oral, q8hr, as needed for pain, Must last 30 days., # 60 tabs, 0 Refill(s) Start Date: 06/17/16 Status: OrderedNovoLOG FlexPen 100 units/mL subcutaneous solution See Instructions, INJECT 12 UNITS SUB-Q THREE TIMES DAILY BEFORE MEALS, # 30 mL , eRx: [id number] Start Date: 05/06/16 Status: Orderedomeprazole 20 mg oral delayed release capsule See Instructions, TAKE 1 CAPSULE BY MOUTH DAILY, # 90 caps, eRx: [facility] Start Date: 05/13/16 Status: Orderedpotassium chloride 20 mEq oral tablet, extended release See Instructions, TAKE 1 TABLET BY MOUTH TWICE DAILY, # 180 tabs, eRx: [facility] , TAKE 1 TABLET BY MOUTH TWICE DAILY Start Date: 01/31/16 Status: OrderedPristiq 50 mg oral tablet, extended release See Instructions, TAKE 1 TABLET BY MOUTH DAILY, # 90 tabs, eRx: [facility] Start Date: 04/02/16 Status: OrderedQUEtiapine 100 mg oral tablet See Instructions, TAKE 1 TABLET BY MOUTH EVERY DAY AT BEDTIME, # 90 tabs, eRx: [facility] Start Date: 04/01/16 Status: OrderedrOPINIRole 1 mg oral tablet See Instructions, TAKE 1 TABLET BY MOUTH TWICE DAILY, # 180 tabs, eRx: [facility] Start Date: 03/26/16 Status: OrderedtiZANidine 2 mg oral tablet See Instructions, TAKE 1 TABLET BY MOUTH DAILY, # 90 tabs, eRx: [facility] , TAKE 1 TABLET BY MOUTH DAILY Start Date: 04/24/16 Status: Orderedwarfarin 2 mg oral tablet See Instructions, TAKE 1 TABLET BY MOUTH ON WEDNESDAY, WEDNESDAY& FRIDAYS, THEN TAKE 1& 1/2 TABLETS BY MOUTH ALL OTHERS DAYS OR DIRECTED, # 90 tabs , eRx: [facility] [id number], TAKE 1 TABLET BY MOUTH ON WEDNESDAY, WEDNESDAY& amp; FRIDAYS, THEN TAKE 1& 1/... Start Date: 04/24/16 Status: Orderedwarfarin 2 mg oral tablet See Instructions, TAKE 1 TABLET BY MOUTH ON WEDNESDAY, WEDNESDAY& FRIDAYS, THEN TAKE 1& 1/2 TABLETS BY MOUTH ALL OTHERS DAYS OR DIRECTED, # 90 tabs , eRx: [facility] [id number], TAKE 1 TABLET BY MOUTH ON WEDNESDAY, WEDNESDAY& amp; FRIDAYS, THEN TAKE 1& 1/... Start Date: 04/24/16 Status: Ordered Results Coagulation Most recent to oldest [Reference Range]: 1 PT Venous (06/17/16 1:23 PM) INR [0.8-1.2] 3.9 1 *HI* (06/17/16 1:23 PM) 1Result Comment: Normal (no anticoagulant): 0.8 - 1.2 Units Routine Therapeutic Range: 2.0 - 3.0 Units High Risk Therapeutic Range: 2.5 - 3.5 Units Immunizations Given and Recorded Vaccine Date Status Refusal Reason influenza virus vaccine, inactivated1 02/11/16 Recorded influenza virus vaccine, live 02/15/13 Given influenza virus vaccine, live 02/08/12 Given pneumococcal 13-valent conjugate vaccine 03/12/16 Given pneumococcal 23-polyvalent vaccine 03/05/14 Given pneumococcal 23-polyvalent vaccine 01/09/00 Recorded tetanus-diphth toxoids (Td) adult/adol 01/09/00 Recorded zoster vaccine live 04/28/07 Recorded 1Result Comment: [03/12/2016] From [facility] Procedures Procedure Date Related Diagnosis Body Site Mammogram1 04/18/15 Colonoscopy 06/01/08 Esophagogastroduodenoscopy 06/01/08 Cataract extraction - bilateral 2007 Hip replacement - right 2006 Hip replacement - left 2004 Repair of ventral hernia 1990 Tubal ligation 1970 Cholecystectomy 1968 Bilateral tubal ligation Biopsy of breast Cholecystectomy Hernia repair Knee replacement Mastectomy [address] [place] [address] Social History Social History Type Response Smoking Status Current every day smoker; Type: Cigarettes Assessment and Plan Extracted from: Title: Ambulatory Patient Education Author: Oskar Rosenthal MD Date: Musculoskeletal Arthritis Arthritis is a term that is commonly used to refer to joint pain or joint disease. There are more than 100 types of arthritis. CAUSES The most common cause of this condition is wear and tear of a joint. Other causes include: Gout. Inflammation of a joint. An infection of a joint. Sprains and other injuries near the joint. A drug reaction or allergic reaction. In some cases, the cause may not be known. SYMPTOMS The main symptom of this condition is pain in the joint with movement. Other symptoms include: Redness, swelling, or stiffness at a joint. Warmth coming from the joint. Fever. Overall feeling of illness. DIAGNOSIS This condition may be diagnosed with a physical exam and tests, including: Blood tests. Urine tests. Imaging tests, such as MRI, X-rays, or a CT scan. Sometimes, fluid is removed from a joint for testing. TREATMENT Treatment for this condition may involve: Treatment of the cause, if it is known. Rest. Raising (elevating) the joint. Applying cold or hot packs to the joint. Medicines to improve symptoms and reduce inflammation. Injections of a steroid such as cortisone into the joint to help reduce pain and inflammation. Depending on the cause of your arthritis, you may need to make lifestyle changes to reduce stress on your joint. These changes may include exercising more and losing weight. HOME CARE INSTRUCTIONS Medicines Take pwoj-uac-saaewce and prescription medicines only as told by your health care provider. Do not take aspirin to relieve pain if gout is suspected. Activities Rest your joint if told by your health care provider. Rest is important when your disease is active and your joint feels painful, swollen, or stiff. Avoid activities that make the pain worse. It is important to balance activity with rest. Exercise your joint regularly with [id number]-smlicp exercises as told by your health care provider. Try doing low-impact exercise, such as: Swimming. Water aerobics. Biking. Walking. Joint Care If your joint is swollen, keep it elevated if told by your health care provider. If your joint feels stiff in the morning, try taking a warm shower. If directed, apply heat to the joint. If you have diabetes, do not apply heat without permission from your health care provider. Put a towel between the joint and the hot pack or heating pad. Leave the heat on the area for 20 30 minutes. If directed, apply ice to the joint: Put ice in a plastic bag. Place a towel between your skin and the bag. Leave the ice on for 20 minutes, 2 3 times per day. Keep all follow-up visits as told by your health care provider. This is important. SEEK MEDICAL CARE IF: The pain gets worse. You have a fever. SEEK IMMEDIATE MEDICAL CARE IF: You develop severe joint pain, swelling, or redness. Many joints become painful and swollen. You develop severe back pain. You develop severe weakness in your leg. You cannot control your bladder or bowels. This information is not intended to replace advice given to you by your health care provider. Make sure you discuss any questions you have with your health care provider. Document Released: 05/06/2005 Document Revised: 03/09/2016 Document Reviewed: 06/24/2015 [employer] Patient Education 2016 [employer] No follow up information was provided. Extracted from: Title: Office Visit Note Author: Oskar Rosenthal MD Date: 06/17/16 Assessment/Plan Anxiety This issue was reviewed, appears stable, and current therapy continued except as mentioned. Appropriate lab was reviewed from the most recent appropriate entry and lab was ordered if needed in the c juan/nursing orders, and follow up recommended generally in 90 days and no later then six months. Stable on current meds. Apnea, sleep This issue was reviewed, appears stable, and current therapy continued except as mentioned. Appropriate lab was reviewed from the most recent appropriate entry and lab was ordered if needed in the c juan/nursing orders, and follow up recommended generally in 90 days and no later then six months. Arthritis This issue was reviewed, appears stable, and current therapy continued except as mentioned. Appropriate lab was reviewed from the most recent appropriate entry and lab was ordered if needed in the c juan/nursing orders, and follow up recommended generally in 90 days and no later then six months. Refill norco when due. Xrays pending for low back pain when willing. Declined for now. PT offered and declined. [place] refilled. Not a candidate for an epidural while on coumadin. Consult,PT, brace, epidural alldiscussed and declined for now. The patient has family members present who are agreeable with today's plan and have no additional concerns or requests. Daughter Aggie here. Breast cancer - right The patient's issue is nearly or completely resolved. There is no further issues or testing desired by them at this time. CAD (coronary artery disease) This issue was reviewed, appears stable, and current therapy continued except as mentioned. Appropriate lab was reviewed from the most recent appropriate entry and lab was ordered if needed in the c juan/nursing orders, and follow up recommended generally in 90 days and no later then six months. No cp. Chronic kidney disease (CKD) This issue was reviewed, appears stable, and current therapy continued except as mentioned. Appropriate lab was reviewed from the most recent appropriate entry and lab was ordered if needed in the c juan/nursing orders, and follow up recommended generally in 90 days and no later then six months. Limit nsaids. COPD (chronic obstructive pulmonary disease) This issue was reviewed, appears stable, and current therapy continued except as mentioned. Appropriate lab was reviewed from the most recent appropriate entry and lab was ordered if needed in the c juan/nursing orders, and follow up recommended generally in 90 days and no later then six months. Deep vein thrombosis (DVT) The patient's issue is nearly or completely resolved. There is no further issues or testing desired by them at this time. Stable on coumadin. Due for protime. Ordered: PT Diabetes The patient was notified for the need for regular quarterly f/u of their diabetes. Further any pertinent medication, supplies, etc were refilled. Additionally, they are to have annual eye exams, foot exams, and regular care. This issue was reviewed, appears stable, and current therapy continued except as mentioned. Appropriate lab was reviewed from the most recent appropriate entry and lab was ordered if needed in the cpoe/nursing orders, and follow up recommended generally in 90 days and no later then six months. Lab pending.To Diabetic Education with Pharm Ds. GERD (gastroesophageal reflux disease) This issue was reviewed, appears stable, and current therapy continued except as mentioned. Appropriate lab was reviewed from the most recent appropriate entry and lab was ordered if needed in the c juan/nursing orders, and follow up recommended generally in 90 days and no later then six months. Hepatitis C The patient's issue is nearly or completely resolved. There is no further issues or testing desired by them at this time. Hypertension This issue was reviewed, appears stable, and current therapy continued except as mentioned. Appropriate lab was reviewed from the most recent appropriate entry and lab was ordered if needed in the c juan/nursing orders, and follow up recommended generally in 90 days and no later then six months. The patient reports their blood pressure has been stable at home and is not having any significant or related problems. There has been no chest pain, chest pressure, soa/jacome. The patient had an elevated blood pressure reading and is to monitor their bp and call with a report if consistently > 140/90. Morbid obesity Diet and exercise as tolerated and feasible. Consider medication when interested. Osteopenia We discussed several options for treatment for this condition. The patient declined any changes or other treatments at this time. DXA test results for Ms. Jerrod Garcia performed on 04/22/2016 The Right femoral neck showed the lowest score of all the areas scanned. The Right femoral neck has a T-score of -1.50 The diagnosis is LOW BONE MASS. [1]
--- OUTSIDE RECORDS SUMMARY | 2017-11-02 06:57 | External Medical Summary | Referral Summary ---
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) - 10/25 Discharge Disposition: 01-Home or Self Care Attending Physician: Lencho Xavier MD Admitting Physician: Lencho Xavier MD Vital Signs Most recent to oldest [Reference Range]: 1 Temperature Tympanic [35.8-38.1 degC] 36.6 degC (10/25/17 2:47 PM) Problem List Condition Effective Dates Status Health Status Informant AMI (acute myocardial Active infarction)(Confirmed) Amputation of little toe.(Confirmed) Active Anxiety(Confirmed) Active CAD (coronary artery Active disease)(Confirmed) Arthritis(Confirmed) Active Breast cancer - right(Confirmed) Active Chronic kidney disease Active (CKD)(Confirmed) COPD (chronic obstructive pulmonary Active disease)(Confirmed) Osteoarthritis, generalized(Confirmed) Active Depression(Confirmed) Active Diabetes(Confirmed) Active Need for home health care(Confirmed) Active Chronic foot pain(Confirmed) Active GERD (gastroesophageal reflux Active disease)(Confirmed) Gout(Confirmed) Active Hepatitis C(Confirmed) Active Hypertension(Confirmed) Active Insomnia(Confirmed) Active Migraine headache(Confirmed) Active Morbid obesity(Confirmed) Active patient Neuropathy(Confirmed) Active NOEL on CPAP(Confirmed) Active Osteoarthritis(Confirmed) Active Osteopenia(Confirmed) Active Overweight(Confirmed) Active Pulmonary embolism(Confirmed) Active Renal insufficiency(Confirmed) Active Apnea, sleep(Confirmed) Active Current smoker(Confirmed) Active Urge incontinence(Confirmed) Active Allergies, Adverse Reactions, Alerts Substance Reaction Severity Status codeine Unknown Active sulfanilamide topical Unknown Active Sulfanilamide Active Prochlorperazine Maleate Active Prochlorperazine Edisylate Active Medications albuterol 2.5 mg/3 mL (0.083%) inhalation solution 2.5 mg 3 mL, Inhalation, q6hr (scheduled), J44.9, # 60 Each, 0 Refill(s), Pharmacy: [id number], 3 mL Inhalation q6hr (scheduled),Instr: J44.9 Start Date: 06/05/15 Status: Orderedallopurinol 100 mg oral tablet See Instructions, TAKE 1 TABLET BY MOUTH EVERY DAY, # 90 tabs, eRx: [facility] [id number] Start Date: 12/24/16 Status: Orderedatorvastatin 20 mg oral tablet See Instructions, TAKE 1 TABLET BY MOUTH EVERY NIGHT AT BEDTIME, # 90 tabs, eRx : [facility] [id number] Start Date: 11/10/16 Status: OrderedB-12 oral and injections, 0 Refill(s) Start Date: 12/02/16 Status: Orderedcyclobenzaprine 10 mg oral tablet 10 mg 1 tabs, Oral, TID, as needed for spasm, # 90 tabs, 0 Refill(s), Pharmacy: [id number], 1 tabs Oral TID,PRN:as needed for spasm Start Date: 11/07/15 Status: OrderedFlagyl 500 mg oral tablet 500 mg 1 tabs, Oral, q12hr, # 20 tabs, 0 Refill(s), Pharmacy: [facility] [id number], 1 tabs Oral q12hr Start Date: 12/25/16 Status: OrderedFLUoxetine 20 mg oral capsule See Instructions, TAKE 1 CAPSULE BY MOUTH THREE TIMES DAILY, # 270 caps, eRx: [facility] [id number] Start Date: 12/02/16 Status: Orderedfurosemide 40 mg oral tablet See Instructions, TAKE 1 TABLET BY MOUTH TWICE DAILY, # 180 tabs, eRx: [facility] [id number] Start Date: 12/24/16 Status: Orderedgabapentin 300 mg oral capsule See Instructions, TAKE 1 CAPSULE BY MOUTH THREE TIMES DAILY, # 270 caps, eRx: [facility] [id number] Start Date: 12/03/16 Status: OrderedGlucometer (DME) DME Item Contour meter kit; use as directed, See Instructions, # 1 Each, 0 Refill(s), Supply Start Date: 12/07/13 Status: OrderedGlucometer Lancets (DME) DME Item [employer] Lancets 30 G 100's - Test blood sugars fasting and TID DX: E11.9, See Instructions, # 300 Each, 5 Refill(s), Pharmacy: [facility] [id number], [facility] Lancets 30 G 100's - Test blood sugars fasting and TID; DX : E11.9, Supply Start Date: 10/17/15 Status: OrderedInsulin Pen [place] (DME) DME Item B-D pen needles Injecting 4 times a day DX:250.02 31 gauge 8mm, See Instructions, # 100 Each, 11 Refill(s), Pharmacy: [facility] [id number], B- D pen needles; Injecting 4 times a day; DX:250.02; 31 gauge 8mm, Supply Start Date: 01/01/17 Status: OrderedIron 100 Plus tabs, Oral, Daily, 0 Refill(s) Start Date: 12/02/16 Status: OrderedLevemir FlexTouch 100 units/mL subcutaneous solution See Instructions, INJECT 25 UNITS SUB-Q EVERY EVENING, # 15 mL, eRx: [facility] [id number] Start Date: 01/08/17 Status: OrderedMetoprolol Succinate ER 25 mg oral tablet, extended release See Instructions, TAKE 1 TABLET BY MOUTH DAILY, # 90 tabs, eRx: [facility] [id number], TAKE 1 TABLET BY MOUTH DAILY Start Date: 12/11/16 Status: OrderedMiscellaneous DME DME Item one cpap mask, and cpap tubing, and disposable cpap filter-may refill as needed for NOEL G47.30 length of need 99, See Instructions, # 1 Each, 0 Refill(s), Supply Start Date: 12/08/16 Status: OrderedMiscellaneous DME DME Item Contour Test Strips Test blood sugars fasting and TID DX E11.9, See Instructions, # 300 Each, 0 Refill(s), Pharmacy: [facility] [id number], Contour Test Strips; Test blood sugars fasting and TID; DX E11.9, Supply Start Date: 10/17/15 Status: OrderedNorco 10 mg-325 mg oral tablet 1-2 tabs, Oral, q8hr, as needed for pain, Must last 30 days. May fill 01/01/17. , # 60 tabs, 0 Refill(s) Start Date: 12/24/16 Status: OrderedNovoLOG FlexPen 100 units/mL subcutaneous solution See Instructions, INJECT 12 UNITS SUB-Q THREE TIMES DAILY BEFORE MEALS, # 30 mL , 2 Refill(s), eRx: [facility] Start Date: 07/20/16 Status: Orderedomeprazole 20 mg oral delayed release capsule See Instructions, TAKE 1 CAPSULE BY MOUTH DAILY, # 90 caps, eRx: [facility] Start Date: 01/25/17 Status: Orderedpotassium chloride 20 mEq oral tablet, extended release See Instructions, TAKE 1 TABLET BY MOUTH TWICE DAILY, # 180 tabs, eRx: [facility] Start Date: 09/25/16 Status: OrderedPristiq 50 mg oral tablet, extended release See Instructions, TAKE 1 TABLET BY MOUTH ONCE DAILY, # 90 tabs, eRx: [facility] Start Date: 12/11/16 Status: OrderedQUEtiapine 100 mg oral tablet See Instructions, TAKE 1 TABLET BY MOUTH EVERY DAY AT BEDTIME, # 90 tabs, eRx: [facility] Start Date: 12/24/16 Status: OrderedrOPINIRole 1 mg oral tablet See Instructions, TAKE 1 TABLET BY MOUTH TWICE DAILY, # 180 tabs, 1 Refill(s), eRx: [facility] Start Date: 01/01/17 Status: OrderedtiZANidine 2 mg oral tablet See Instructions, TAKE 1 TABLET BY MOUTH DAILY, # 90 tabs, eRx: [facility] Start Date: 01/25/17 Status: OrderedXarelto 20 mg oral tablet 20 mg 1 tabs, Oral, qPM, To begin this med to replace Coumadin. Start taking 2 days after stopping Coumadin., # 90 tabs, 0 Refill(s), Pharmacy: [id number], Please dc Coumadin., 1 tabs Oral qPM,Instr:To begin this med to replace Coumad... Start Date: 12/24/16 Status: Ordered Immunizations Given and Recorded Vaccine Date Status Refusal Reason pneumococcal 13-valent conjugate vaccine 03/12/16 Given influenza virus vaccine, inactivated1 02/11/16 Recorded pneumococcal 23-polyvalent vaccine 03/05/14 Given pneumococcal 23-polyvalent vaccine 01/09/00 Recorded influenza virus vaccine, live 02/15/13 Given influenza virus vaccine, live 02/08/12 Given zoster vaccine live 04/28/07 Recorded tetanus-diphth toxoids (Td) adult/adol 01/09/00 Recorded 1Result Comment: [03/12/2016] From [facility] Procedures Procedure Date Related Diagnosis Body Site Status Amputation of toe1 11/23/16 Completed Mammogram2 04/18/15 Completed Colonoscopy 06/01/08 Completed Esophagogastroduodenoscopy 06/01/08 Completed Cataract extraction - bilateral 2007 Completed Hip replacement - right 2006 Completed Hip replacement - left 2004 Completed Repair of ventral hernia 1989 Completed Tubal ligation 1969 Completed Cholecystectomy 1967 Completed Bilateral tubal ligation Completed Biopsy of breast Completed Cholecystectomy Completed Hernia repair Completed Knee replacement Completed [id number] Social History Social History Type Response Smoking Status Former smoker; Type: Cigarettes entered on: 09/17/16 Assessment and Plan Extracted from: Title: Ambulatory Patient Education Author: Lencho Xavier MD Date: 10/25/17 The following Patient Education Materials have been given to the patient: No follow up information was provided.
--- OUTSIDE RECORDS SUMMARY | 2017-11-02 06:57 | External Medical Summary | Referral Summary ---
:1945 Author Organization [facility] [place] [address] Care Team Providers Name Role Phone Oskar Rosenthal Primary Care Physician Encounter Date(s): 12/15/16 - 12/15/16 [facility] [address] [place] [address] Discharge Diagnosis: Chronic diarrhea Discharge Diagnosis: Dark stools Discharge Disposition: 01-Home or Self Care Attending Physician: Samira Mathew PA-C Admitting Physician: Samira Mathew PA-C Vital Signs Most recent to oldest [Reference Range]: 1 Temperature Tympanic [36.6-38.1 degC] 38.3 degC *HI* (12/15/16 2:33 PM) Peripheral Pulse Rate [60-100 bpm] 88 bpm (12/15/16 2:33 PM) Blood Pressure [90-140/60-90 mmHg] 146/90 mmHg *HI* (12/15/16 2:33 PM) Problem List Condition Effective Dates Status [...] J44.9, # 60 Each, 0 Refill(s), Pharmacy: [facility] [id number], 3 mL Inhalation q6hr (scheduled),Instr: J44.9 Start Date: 06/05/15 Status: Orderedallopurinol 100 mg oral tablet See Instructions, TAKE 1 TABLET BY MOUTH EVERY DAY, # 90 tabs, eRx: [facility] [id number] Start Date: 09/21/16 Status: Orderedatorvastatin 20 mg oral tablet See Instructions, TAKE 1 TABLET BY MOUTH EVERY NIGHT AT BEDTIME, # 90 tabs, eRx : [facility] [id number] Start Date: 11/10/16 Status: OrderedB-12 oral and injections, 0 Refill(s) Start Date: 12/02/16 Status: Orderedcyclobenzaprine 10 mg oral tablet 10 mg 1 tabs, Oral, TID, as needed for spasm, # 90 tabs, 0 Refill(s), Pharmacy: [id number], 1 tabs Oral TID,PRN:as needed for spasm Start Date: 11/07/15 Status: OrderedFLUoxetine 20 mg oral capsule See Instructions, TAKE 1 CAPSULE BY MOUTH THREE TIMES DAILY, # 270 caps, eRx: [facility] [id number] Start Date: 12/02/16 Status: Orderedfurosemide 40 mg oral tablet See Instructions, TAKE 1 TABLET BY MOUTH TWICE DAILY, # 180 tabs, eRx: [facility] [id number] Start Date: 06/22/16 Status: Orderedgabapentin 300 mg oral capsule See Instructions, TAKE 1 CAPSULE BY MOUTH THREE TIMES DAILY, # 270 caps, eRx: [facility] [id number] Start Date: 12/03/16 Status: OrderedGlucometer (DME) DME Item Contour meter kit; use as directed, See Instructions, # 1 Each, 0 Refill(s), Supply Start Date: 12/07/13 Status: OrderedGlucometer Lancets (DME) DME Item [facility] Lancets 30 G 100's - Test blood sugars fasting and TID DX: E11.9, See Instructions, # 300 Each, 5 Refill(s), [id number], [facility] Lancets 30 G 100's - Test blood sugars fasting and TID; DX : E11.9, Supply Start Date: 10/17/15 Status: OrderedInsulin Pin [place] (DME) DME Item Injecting 4 times a day DX:250.02 31 gauge 8mm, See Instructions, # 100 Each, 11 Refill(s), Pharmacy: [facility], Injecting 4 times a day; DX:250.02; 31 gauge 8mm, Supply Start Date: 06/05/15 Status: OrderedIron 100 Plus tabs, Oral, Daily, 0 Refill(s) Start Date: 12/02/16 Status: OrderedLevemir FlexTouch 100 units/mL subcutaneous solution See Instructions, INJECT 25 UNITS SUB-Q EVERY EVENING, # 15 mL, eRx: [facility] [id number] Start Date: 11/11/16 Status: OrderedMetoprolol Succinate ER 25 mg oral tablet, extended release See Instructions, TAKE 1 TABLET BY MOUTH DAILY, # 90 tabs, eRx: [facility] [id number], TAKE 1 TABLET BY MOUTH DAILY Start [...] Instructions, # 300 Each, 0 Refill(s), [facility], Contour Test Strips; Test blood sugars fasting and TID; DX E11.9, Supply Start Date: 10/17/15 Status: OrderedNorco 10 mg-325 mg oral tablet 1-2 tabs, Oral, q8hr, as needed for pain, Must last 30 days., # 60 tabs, 0 Refill(s) Start Date: 12/02/16 Status: OrderedNovoLOG FlexPen 100 units/mL subcutaneous solution See Instructions, INJECT 12 UNITS SUB-Q THREE TIMES DAILY BEFORE MEALS, # 30 mL , 2 Refill(s), eRx: [facility] Start Date: 07/20/16 Status: Orderedomeprazole 20 mg oral delayed release capsule See Instructions, TAKE 1 CAPSULE BY MOUTH DAILY, # 90 caps, 1 Refill(s), eRx: [facility] Start Date: 07/23/16 Status: Orderedpotassium chloride 20 mEq oral tablet, extended release See Instructions, TAKE 1 TABLET BY MOUTH TWICE DAILY, # 180 tabs, eRx: [facility] Start Date: 09/25/16 Status: OrderedPristiq 50 mg oral tablet, extended release See Instructions, TAKE 1 TABLET BY MOUTH ONCE DAILY, # 90 tabs, eRx: [facility] Start Date: 12/11/16 Status: OrderedQUEtiapine 100 mg oral tablet See Instructions, TAKE 1 TABLET BY MOUTH EVERY DAY AT BEDTIME, # 90 tabs, eRx: [facility] Start Date: 09/25/16 Status: OrderedrOPINIRole 1 mg oral tablet See Instructions, TAKE 1 TABLET BY MOUTH TWICE DAILY, # 180 tabs, eRx: [facility] Start Date: 09/21/16 Status: OrderedtiZANidine 2 mg oral tablet See Instructions, TAKE 1 TABLET BY MOUTH DAILY, # 90 tabs, eRx: [facility] Start Date: 10/19/16 Status: Orderedwarfarin 2 mg oral tablet See Instructions, Take as directed based on inr., # 90 tabs, 1 Refill(s), eRx: [facility] Start Date: 07/02/16 Status: Orderedwarfarin 5 mg oral tablet See Instructions, 1 tab daily, or as directed based on inr., 0 Refill(s) Start Date: 12/02/16 Status: Ordered Immunizations Given and Recorded Vaccine [...] - left 2004 Repair of ventral hernia 1989 Tubal ligation 1970 Cholecystectomy 1968 Bilateral tubal ligation Biopsy of breast Cholecystectomy Hernia repair Knee replacement Mastectomy [address] [place] [address] Social History Social History Type Response Smoking Status Former smoker; Type: Cigarettes entered on: 09/17/16 Assessment and Plan Extracted from: Title: Office Visit Note- Chronic Author: Samira Mathew PA-C Date: 12/15 diarrhea Chronic diarrhea Advised pt that we can check stool cultures first. Also check for C. Diff given her recent hospitalization and abx use. Tx if +. If negative, consider referral to GI. For now, I did recommend that she stop taking the Imodium. I did recommend taking Probiotics. Ordered: C diff Battery Occult Blood X 3, Stool Office Visit Level 3 Est 05363 Stool Culture w/ [place]y and Shigatoxin Dark stools Most likely d/t her iron use. Will check Hemoccult cards x3 as well. May need updated colonoscopy. Ordered: Occult Blood X 3, Stool Office Visit Level 3 Est 54015
--- OUTSIDE RECORDS SUMMARY | 2017-11-02 06:58 | External Medical Summary | Referral Summary ---
:1945 Author Organization [facility] [place] [id number] Care Team Providers Name Role Phone Oskar Rosenthal Primary Care Physician Encounter [facility] Date(s): 12/02/16 - 12/02/16 [facility] [place] [phone] Discharge Diagnosis: CAD (coronary artery disease) Discharge Diagnosis: Diabetes Discharge Diagnosis: Breast cancer - right Discharge Diagnosis: Morbid obesity Discharge Diagnosis: NOEL on CPAP Discharge Diagnosis: Cellulitis Discharge Diagnosis: Amputation of little toe. Discharge Diagnosis: COPD (chronic obstructive pulmonary disease) Discharge Diagnosis: Renal insufficiency Discharge Diagnosis: Gout Discharge Diagnosis: Chronic kidney disease (CKD) Discharge Diagnosis: Current smoker Discharge Diagnosis: Depression Discharge Disposition: 01-Home or Self Care Attending Physician: Oskar Rosenthal MD Admitting Physician: Oskar Rosenthal MD Vital Signs Most recent to oldest [Reference Range]: 1 Blood Pressure [90-140/60-90 mmHg] 120/80 mmHg (12/02/16 2:53 PM) Problem List Condition Effective Dates Status [...] J44.9, # 60 Each, 0 Refill(s), Pharmacy: [facility] [id number], 3 mL Inhalation q6hr (scheduled),Instr: J44.9 Start Date: 06/05/15 Status: Orderedallopurinol 100 mg oral tablet See Instructions, TAKE 1 TABLET BY MOUTH EVERY DAY, # 90 tabs, eRx: [facility] [id number] Start Date: 09/21/16 Status: Orderedamoxicillin 500 mg oral capsule 500 mg 1 caps, Oral, q12hr, # 20 caps, 0 Refill(s) Start Date: 12/02/16 Status: Orderedatorvastatin 20 mg oral tablet See Instructions, TAKE 1 TABLET BY MOUTH EVERY NIGHT AT BEDTIME, # 90 tabs, eRx : [facility] [id number] Start Date: 11/10/16 Status: OrderedB-12 oral and injections, 0 Refill(s) Start Date: 12/02/16 Status: Orderedcyclobenzaprine 10 mg oral tablet 10 mg 1 tabs, Oral, TID, as needed for spasm, # 90 tabs, 0 Refill(s), Pharmacy: [id number], 1 tabs Oral TID,PRN:as needed for spasm Start Date: 11/07/15 Status: OrderedFLUoxetine 20 mg oral capsule See Instructions, TAKE 1 CAPSULE BY MOUTH THREE TIMES DAILY, # 270 caps, eRx: [facility] [id number] Start Date: 12/02/16 Status: Orderedfurosemide 40 mg oral tablet See Instructions, TAKE 1 TABLET BY MOUTH TWICE DAILY, # 180 tabs, eRx: [facility] [id number] Start Date: 06/22/16 Status: Orderedgabapentin 300 mg oral capsule See Instructions, TAKE 1 CAPSULE BY MOUTH THREE TIMES DAILY, # 270 caps, 1 Refill(s), eRx: [facility] , TAKE 1 CAPSULE BY MOUTH THREE TIMES DAILY Start Date: 03/10/16 Status: OrderedGlucometer (DME) DME Item Contour meter kit; use as directed, See Instructions, # 1 Each, 0 Refill(s), Supply Start Date: 12/07/13 Status: OrderedGlucometer Lancets (DME) DME Item [facility] Lancets 30 G 100's - Test blood sugars fasting and TID DX: E11.9, See Instructions, # 300 Each, 5 Refill(s), Pharmacy: [facility], [place] Lancets 30 G 100's - Test blood sugars fasting and TID; DX : E11.9, Supply Start Date: 10/17/15 Status: OrderedInsulin Pin [place] (DME) DME Item Injecting 4 times a day DX:250.02 31 gauge 8mm, See Instructions, # 100 Each, 11 Refill(s), Pharmacy: [facility], Injecting 4 times a day; DX:250.02; 31 gauge 8mm, Supply Start Date: 06/05/15 Status: OrderedIron 100 Plus tabs, Oral, Daily, 0 Refill(s) Start Date: 12/02/16 Status: OrderedLevemir FlexTouch 100 units/mL subcutaneous solution See Instructions, INJECT 25 UNITS SUB-Q EVERY EVENING, # 15 mL, eRx: [facility] [id number] Start Date: 11/11/16 Status: Orderedmetoprolol succinate 25 mg oral tablet, extended release 25 mg 1 tabs, Oral, Daily, # 90 tabs, 0 Refill(s) Start Date: 12/02/16 Status: OrderedMiscellaneous DME DME Item Contour Test Strips Test blood sugars fasting and TID DX E11.9, See Instructions, # 300 Each, 0 Refill(s), Pharmacy: [facility], Contour Test Strips; Test blood sugars fasting [...] # 30 mL , 2 Refill(s), eRx: [facility] [id number] Start Date: 07/20/16 Status: Orderedomeprazole 20 mg oral delayed release capsule See Instructions, TAKE 1 CAPSULE BY MOUTH DAILY, # 90 caps, 1 Refill(s), eRx: [facility] Start Date: 07/23/16 Status: Orderedpotassium chloride 20 mEq oral tablet, extended release See Instructions, TAKE 1 TABLET BY MOUTH TWICE DAILY, # 180 tabs, eRx: [facility] Start Date: 09/25/16 Status: OrderedPristiq 50 mg oral tablet, extended release See Instructions, TAKE 1 TABLET BY MOUTH ONCE DAILY, # 90 tabs, 1 Refill(s), eRx : [facility] Start Date: 07/02/16 Status: OrderedQUEtiapine 100 mg oral tablet See Instructions, TAKE 1 TABLET BY MOUTH EVERY DAY AT BEDTIME, # 90 tabs, eRx: [facility] Start Date: 09/25/16 Status: OrderedrOPINIRole 1 mg oral tablet See Instructions, TAKE 1 TABLET BY MOUTH TWICE DAILY, # 180 tabs, eRx: [facility] Start Date: 09/21/16 Status: OrderedtiZANidine 2 mg oral tablet See Instructions, TAKE 1 TABLET BY MOUTH DAILY, # 90 tabs, eRx: [facility] Start Date: 10/19/16 Status: Orderedwarfarin 2 mg oral tablet See Instructions, Take as directed based on inr., # 90 tabs, 1 Refill(s), eRx: [facility] Start Date: 07/02/16 Status: Orderedwarfarin 5 mg oral tablet See Instructions, 1 tab daily, or as directed based on inr., 0 Refill(s) Start Date: 12/02/16 Status: Ordered Results Coagulation Most recent to oldest [Reference Range]: 1 PT Venous (12/02/16 3:25 PM) INR [0.8-1.2] 2.5 1 *HI* (12/02/16 3:25 PM) 1Result Comment: Normal (no anticoagulant): 0.8 [...] breast Cholecystectomy Hernia repair Knee replacement Mastectomy [address] [place] [address] Social History Social History Type Response Smoking Status Former smoker; Type: Cigarettes Assessment and Plan Extracted [...] losing weight. HOME CARE INSTRUCTIONS Medicines Take dxzk-ozw-frhkzqh and prescription medicines only as told by [...] with rest. Exercise your joint regularly with iodqd-rm-yyiqdd exercises as told by your health care [...] 05/06/2005 Document Revised: 03/09/2016 Document Reviewed: 06/24/2015 [employer] Interactive Patient Education 2016 [employer] No follow up information was provided. Extracted from: Title: Office Visit Note Author: Oskar Rosenthal MD Date: 12/02/16 Amputation of little toe. This issue was reviewed, appears stable, and current therapy continued except as mentioned. Appropriate lab was reviewed from the most recent appropriate entry and lab was ordered if needed in the cp oe/nursing orders, and follow up recommended generally in 90 days and no later then six months. [facility] [place] [place] Health papers completed. F/F visit needed at least every 60 days. Needs DM/BP/wound care. Breast cancer - right The patient's issue is nearly or completely resolved. There is no further issues or testing desired by them at this time. Saw Dr. Fuller. CAD (coronary artery disease) This issue was reviewed, appears stable, and current therapy continued except as mentioned. Appropriate lab was reviewed from the most recent appropriate entry and lab was ordered if needed in the cp oe/nursing orders, and follow up recommended generally in 90 days and no later then six months. [address] Dr[address] Conn. Notes reviewed from 09/2016. Cellulitis The patient's issue is nearly or completely resolved. There is no further issues or testing desired by them at this time. Has amoxicillin.Improving. No f/c. Seeing wound care. Chronic kidney disease (CKD) This issue was reviewed, appears stable, and current therapy continued except as mentioned. Appropriate lab was reviewed from the most recent appropriate entry and lab was ordered if needed in the cp oe/nursing orders, and follow up recommended generally in 90 days and no later then six months. Limit nsaids. COPD (chronic obstructive pulmonary disease) This issue was reviewed, appears stable, and current therapy continued except as mentioned. Appropriate lab was reviewed from the most recent appropriate entry and lab was ordered if needed in the cp oe/nursing orders, and follow up recommended generally in 90 days and no later then six months. Current smoker Smoking Cessation was discussed. The patient is welcome to f/u for therapy or medication for smoking cessation at any time that they are willing to quit. Deep vein thrombosis (DVT) The patient's issue is nearly or completely resolved. There is no further issues or testing desired by them at this time. Hx of DVT. Stable on coumadin. Protime pending. Ordered: Comprehensive Metabolic Panel PT Depression This issue was reviewed, appears stable, and current therapy continued except as mentioned. Appropriate lab was reviewed from the most recent appropriate entry and lab was ordered if needed in the cp oe/nursing orders, and follow up recommended generally in 90 days and no later then six months. No SIs. Diabetes The patient was notified for the need for regular quarterly f/u of their diabetes. Further any pertinent medication, supplies, etc were refilled. Additionally, they are to have annual eye exams, foot exams, and regular care. Lab due with next protime. Gout This issue was reviewed, appears stable, and current therapy continued except as mentioned. Appropriate lab was reviewed from the most recent appropriate entry and lab was ordered if needed in the cp oe/nursing orders, and follow up recommended generally in 90 days and no later then six months. No recent flares. Morbid obesity Diet and exercise as tolerated and feasible. Consider medication when interested. The patient has family members present who are agreeable with today's plan and have no additional concerns or requests. DaughterJane here. NOEL on CPAP Script for supplies given. Her [facility] from [facility] was discussed. She does NOT want overnight oxygen because she thinks it is from untreated SA. Restart cpap and reconsider when desired. Renal insufficiency This issue was reviewed, appears stable, and current therapy continued except as mentioned. Appropriate lab was reviewed from the most recent appropriate entry and lab was ordered if needed in the cp oe/nursing orders, and follow up recommended generally in 90 days and no later then six months. 60 minutes were utilized in care and coordination for this patient. Greater then 50% of the time was used for counseling and/or coordination of the patients care. RTC in 30 days for a recheck or sooner prn.
--- OUTSIDE RECORDS SUMMARY | 2017-11-02 06:58 | External Medical Summary | Referral Summary ---
:1945 Author Organization [facility] [place] [phone] Care Team Providers Name Role Phone Oskar Rosenthal Primary Care Physician Encounter [facility] [id number] Date(s): 09/17/16 - 09/17/16 [facility] [address] [place] [phone] Discharge Diagnosis: Current smoker Discharge Diagnosis: Osteoarthritis, generalized Discharge Diagnosis: Chronic kidney disease (CKD) Discharge Diagnosis: CAD (coronary artery disease) Discharge Diagnosis: Pulmonary embolism Discharge Diagnosis: Diabetes Discharge Diagnosis: Hypertension Discharge Diagnosis: Overweight Discharge Diagnosis: Breast cancer - right Discharge Disposition: 01-Home or Self Care Attending Physician: Oskar Rosenthal MD Admitting Physician: Oskar Rosenthal MD Vital Signs Most recent to oldest [Reference Range]: 1 Blood Pressure [90-140/60-90 mmHg] 150/70 mmHg *HI* (09/17/16 1:18 PM) Problem List Condition Effective Dates Status [...] J44.9, # 60 Each, 0 Refill(s), Pharmacy: [facility] [id number], 3 mL Inhalation q6hr (scheduled),Instr: J44.9 Start Date: 06/05/15 Status: Orderedallopurinol 100 mg oral tablet See Instructions, TAKE 1 TABLET BY MOUTH EVERY DAY, # 90 tabs, eRx: [facility] [id number] Start Date: 06/22/16 Status: Orderedatorvastatin 20 mg oral tablet See Instructions, TAKE 1 TABLET BY MOUTH EVERY NIGHT AT BEDTIME, # 90 tabs, eRx : [facility] 55056 Start Date: 07/29/16 Status: Orderedcyclobenzaprine 10 mg oral tablet 10 mg 1 tabs, Oral, TID, as needed for spasm, # 90 tabs, 0 Refill(s), Pharmacy: [id number], 1 tabs Oral TID,PRN:as needed for spasm Start Date: 11/07/15 Status: OrderedFLUoxetine 20 mg oral capsule See Instructions, TAKE 1 CAPSULE BY MOUTH THREE TIMES DAILY, # 270 caps, eRx: [facility] 42790 Start Date: 06/22/16 Status: Orderedfurosemide 40 mg oral tablet See Instructions, TAKE 1 TABLET BY MOUTH TWICE DAILY, # 180 tabs, eRx: [facility] [id number] Start Date: 06/22/16 Status: Orderedgabapentin 300 mg oral capsule See Instructions, TAKE 1 CAPSULE BY MOUTH THREE TIMES DAILY, # 270 caps, 1 Refill(s), eRx: [facility] [id number], TAKE 1 CAPSULE BY MOUTH THREE TIMES DAILY Start Date: 03/10/16 Status: OrderedGlucometer (DME) DME Item Contour meter kit; use as directed, See Instructions, # 1 Each, 0 Refill(s), Supply Start Date: 12/07/13 Status: OrderedGlucometer Lancets (DME) DME Item [facility] Lancets 30 G 100's - Test blood sugars fasting and TID DX: E11.9, See Instructions, # 300 Each, 5 Refill(s), Pharmacy: [facility] [id number], [facility] Lancets 30 G 100's - Test blood sugars fasting and TID; DX : E11.9, Supply Start Date: 10/17/15 Status: OrderedInsulin Pin [place] (DME) DME Item Injecting 4 times a day DX:250.02 31 gauge 8mm, See Instructions, # 100 Each, 11 Refill(s), Pharmacy: [facility], Injecting 4 times a day; DX:250.02; 31 gauge 8mm, Supply Start Date: 06/05/15 Status: OrderedLevemir FlexTouch 100 units/mL subcutaneous solution See Instructions, INJECT 25 UNITS SUB-Q EVERY EVENING, # 15 mL, eRx: [facility] [id number], INJECT 25 UNITS SUB-Q EVERY EVENING Start Date: 08/31/16 Status: OrderedMetoprolol Succinate ER 25 mg oral tablet, extended release See Instructions, TAKE 1 TABLET BY MOUTH ONCE DAILY, # 90 tabs, eRx: [facility] [id number] Start Date: 06/08/16 Status: OrderedMiscellaneous DME DME Item Contour Test Strips Test blood sugars fasting and TID DX E11.9, See Instructions, # 300 Each, 0 Refill(s), Pharmacy: [facility], Contour Test Strips; Test blood sugars fasting and TID; DX E11.9, Supply Start Date: 10/17/15 Status: OrderedNorco 10 mg-325 mg oral tablet 1-2 tabs, Oral, q8hr, as needed for pain, Must last 30 days., # 60 tabs, 0 Refill(s) Start Date: 09/17/16 Status: OrderedNovoLOG FlexPen 100 units/mL subcutaneous solution See Instructions, INJECT 12 UNITS SUB-Q THREE TIMES DAILY BEFORE MEALS, # 30 mL , 2 Refill(s), eRx: [facility] [id number] Start Date: 07/20/16 Status: Orderedomeprazole 20 mg oral delayed release capsule See Instructions, TAKE 1 CAPSULE BY MOUTH DAILY, # 90 caps, 1 Refill(s), eRx: [facility] [id number] Start Date: 07/23/16 Status: Orderedpotassium chloride 20 mEq oral tablet, extended release See Instructions, TAKE 1 TABLET BY MOUTH TWICE DAILY, # 180 tabs, eRx: [facility] Start Date: 06/22/16 Status: OrderedPristiq 50 mg oral tablet, extended release See Instructions, TAKE 1 TABLET BY MOUTH ONCE DAILY, # 90 tabs, 1 Refill(s), eRx : [facility] Start Date: 07/02/16 Status: OrderedQUEtiapine 100 mg oral tablet See Instructions, TAKE 1 TABLET BY MOUTH EVERY DAY AT BEDTIME, # 90 tabs, eRx: [facility] Start Date: 06/22/16 Status: OrderedrOPINIRole 1 mg oral tablet See Instructions, TAKE 1 TABLET BY MOUTH TWICE DAILY, # 180 tabs, eRx: [facility] Start Date: 06/22/16 Status: OrderedtiZANidine 2 mg oral tablet See Instructions, TAKE 1 TABLET BY MOUTH DAILY, # 90 tabs, eRx: [facility] Start Date: 07/23/16 Status: Orderedwarfarin 2 mg oral tablet See Instructions, TAKE 1 TABLET BY MOUTH ON WEDNESDAY, WEDNESDAY& FRIDAYS, THEN TAKE 1& 1/2 TABLETS BY MOUTH ALL OTHERS DAYS OR DIRECTED, # 90 tabs , 1 Refill(s), eRx: [facility] Start Date: 07/02/16 Status: Ordered Results Hematology Most recent to oldest [Reference Range]: 1 WBC [4.8-10.8 10*3/uL] 7.8 10*3/uL (09/17/16 1:57 PM) RBC [4.00-5.20] 4.17 (09/17/16 1:57 PM) Hgb [12.0-16.0 gm/dL] 11.1 gm/dL *LOW* (09/17/16 1:57 PM) Hct [37.0-47.0 %] 36.8 % *LOW* (09/17/16 1:57 PM) MCV [82.0-99.0 fL] 88.2 fL (09/17/16 1:57 PM) MCH [27.0-32.0 pg] 26.6 pg *LOW* (09/17/16 1:57 PM) MCHC [32.0-36.0 gm/dL] 30.2 gm/dL *LOW* (09/17/16 1:57 PM) RDW [11.5-14.5 %] 14.9 % *HI* (09/17/16 1:57 PM) Platelet [150-400 10*3/uL] 180 10*3/uL (09/17/16 1:57 PM) MPV [8.8-14.8 fL] 11.8 fL (09/17/16 1:57 PM) Immature Granulocytes [0.0-1.0 %] 0.3 % (09/17/16 1:57 PM) Neutrophils [51-75 %] 65 % (09/17/16 1:57 PM) Lymphocytes [20-46 %] 25 % (09/17/16 1:57 PM) Monocytes [4-11 %] 7 % (09/17/16 1:57 PM) Eosinophils [0-4 %] 3 % (09/17/16 1:57 PM) Basophils [0-2 %] 0 % (09/17/16 1:57 PM) Neutro Absolute [1.90-7.00] 5.08 (09/17/16 1:57 PM) Lymph Absolute [0.80-3.30] 1.94 (09/17/16 1:57 PM) Starr Absolute [0.30-1.00] 0.52 (09/17/16 1:57 PM) Eos Absolute [0.00-0.50] 0.24 (09/17/16 1:57 PM) Baso Absolute [0.00-0.20] 0.02 (09/17/16 1:57 PM) Coagulation Most recent to oldest [Reference Range]: 1 PT Venous (09/17/16 1:57 PM) INR [0.8-1.2] 2.0 1 *HI* (09/17/16 1:57 PM) 1Result Comment: Normal (no anticoagulant): 0.8 - 1.2 Units Routine Therapeutic Range: 2.0 - 3.0 Units High Risk Therapeutic Range: 2.5 - 3.5 UnitsChemistry Most recent to oldest [Reference Range]: 1 Sodium Lvl [135-144 mEq/L] 139 mEq/L (09/17/16 1:57 PM) Potassium Lvl [3.5-5.2 mEq/L] 4.4 mEq/L (09/17/16 1:57 PM) Chloride [99-111 mEq/L] 107 mEq/L (09/17/16 1:57 PM) CO2 [22-31 mEq/L] 26 mEq/L (09/17/16 1:57 PM) AGAP [3-20 mEq/L] 6 mEq/L (09/17/16 1:57 PM) BUN [10-20 mg/dL] 19 mg/dL (09/17/16 1:57 PM) Glucose Lvl [70-99 mg/dL] 214 mg/dL *HI* (09/17/16 1:57 PM) Creatinine Lvl [0.57-1.11 mg/dL] 1.45 mg/dL *HI* (09/17/16 1:57 PM) eGFR [>60 mL/min] 36 mL/min 1 *ABN* (09/17/16 1:57 PM) Calcium Lvl [8.4-10.2 mg/dL] 9.0 mg/dL (09/17/16 1:57 PM) Albumin Lvl [3.4-4.8 gm/dL] 3.7 gm/dL (09/17/16 1:57 PM) Total Protein [6.0-7.6 gm/dL] 6.7 gm/dL (09/17/16 1:57 PM) Globulin [1.8-4.0 gm/dL] 3.0 gm/dL (09/17/16 1:57 PM) ALT [0-55 U/L] 10 U/L (09/17/16 1:57 PM) AST [5-34 U/L] 13 U/L (09/17/16 1:57 PM) Alk Phos [40-150 U/L] 148 U/L (09/17/16 1:57 PM) Bili Total [0.2-1.2 mg/dL] 0.4 mg/dL (09/17/16 1:57 PM) Uric Acid [2.6-6.0 mg/dL] 7.9 mg/dL *HI* (09/17/16 1:57 PM) BNP [0-99 pg/mL] 176 pg/mL *HI* (09/17/16 1:57 PM) 1Result Comment: Multiply eGFR results by 1.21 for race. Immunizations Given and Recorded Vaccine Date Status [...] breast Cholecystectomy Hernia repair Knee replacement Mastectomy [address] [place] [address] Social History Social History Type Response Smoking Status Former smoker; Type: Cigarettes Assessment and Plan Extracted from: Title: Ambulatory Patient Education Author: Oskar Rosenthal MD Date: Obstetrics and Gynecology Breast Biopsy, Care After Refer to this sheet in the next few weeks. These instructions provide you with information on caring for yourself after your procedure. Your caregiver may also give you more specific instructions. Your treatment has been planned according to current medical practices, but problems sometimes occur. Call your caregiver if you have any problems or questions after your procedure. HOME CARE INSTRUCTIONS Only take wpjy-kzc-vnwnkyl or prescription medicines for pain, discomfort, or fever as directed by your caregiver. Do not take aspirin. It can cause bleeding. Keep stitches dry when bathing. Protect the biopsy area. Do not let the area get bumped. Avoid activities that may pull the incision site open until approved by your caregiver. This can include stretching, reaching, exercise, sports, or lifting over 3 pounds. Resume your usual diet. Wear a good support bra for as long as directed by your caregiver. Change any bandages (dressings) as directed by your caregiver. Do not drink alcohol while taking pain medicine. Keep all your follow-up appointments with your caregiver. Ask when your test results will be ready. Make sure you get your test results. SEEK MEDICAL CARE IF: You have redness, swelling, or increasing pain in the biopsy site. You have a bad smell coming from the biopsy site or dressing. Your biopsy site breaks open after the stitches (sutures), megan, or skin adhesive strips have been removed. You have a rash. You need stronger medicine. SEEK IMMEDIATE MEDICAL CARE IF: You have a fever. You have increased bleeding (more than a small spot) from the biopsy site. You have difficulty breathing. You have pus coming from the biopsy site. MAKE SURE YOU: Understand these instructions. Will watch your condition. Will get help right away if you are not doing well or get worse. This information is not intended to replace advice given to you by your health care provider. Make sure you discuss any questions you have with your health care provider. Document Released: 10/16/2005 Document Revised: 04/19/2015 Document Reviewed: 12/31/2015 [employer] Patient Education 2016 [employer] No follow up information was provided. Extracted from: Title: Office Visit Note Author: Oskar Rosenthal MD Date: 09/17/16 Assessment/Plan Breast cancer - right The patient's issue [...] months. Seeing Dr. Conn. Notes reviewed from 03/2016. Chronic kidney disease (CKD) This issue was reviewed, appears stable, and current therapy continued except as mentioned. Appropriate lab was reviewed from the most recent appropriate entry and lab was ordered if needed in the c juan/nursing orders, and follow up recommended generally in 90 days and no later then six months. Limit nsaids. COPD with emphysema This issue was reviewed, appears stable, and current therapy continued except as mentioned. Appropriate lab was reviewed from the most recent appropriate entry and lab was ordered if needed in the c juan/nursing orders, and follow up recommended generally in 90 days and no later then six months. CXR when willing. NOT using her inhalers. Ordered: XR Chest 2 Views Current smoker The patient's issue is nearly or completely resolved. There is no further issues or testing desired by them at this time. Not smoking right now per her due to the expense. Deep vein thrombosis (DVT) The patient's issue is nearly or completely resolved. There is no further issues or testing desired by them at this time. PT pending. Stable on coumadin. Ordered: PT Diabetes The patient was notified for the need for regular quarterly f/u of their diabetes. Further any pertinent medication, supplies, etc were refilled. Additionally, they are to have annual eye exams, foot exams, and regular care. Lab pending. Edema We discussed several options for treatment for this condition. The patient declined any changes or other treatments at this time. Vascular consult discussed.Strongly emphasized wt loss, josette wrap/ support hose. Consult when interested. The patient has family members present who are agreeable with today's plan and have no additional concerns or requests. Daughter Aggie here. Ordered: B-Type Natriuretic Peptide CBC w/ Differential Comprehensive Metabolic Panel Gout This issue was reviewed, appears stable, and current therapy continued except as mentioned. Appropriate lab was reviewed from the most recent appropriate entry and lab was ordered if needed in the c juan/nursing orders, and follow up recommended generally in 90 days and no later then six months. Lab pending. Ordered: Uric Acid Hypertension This issue was reviewed, appears stable, [...] with a report if consistently > 140/90. Osteoarthritis, generalized This issue was reviewed, appears stable, and current therapy continued except as mentioned. Appropriate lab was reviewed from the most recent appropriate entry and lab was ordered if needed in the c juan/nursing orders, and follow up recommended generally in 90 days and no later then six months. Jeddo refilled. Overweight Diet and exercise as tolerated and feasible. Consider medication when interested. Stop all regular soda. Other changes discussed. Dietary consult prn interest. Pulmonary embolism The patient's issue is nearly or completely resolved. There is no further issues or testing desired by them at this time.
[2017-11-02] MEDS ORDERED: LIDOCAINE 1% (10mg/ml) 30ml SDV INJ ONE ×2 (07:09→11:53)
[2017-11-02] MEDS ORDERED: BUPIVACAINE 0.5% (5mg/ml) PF 30ml INJ SDV ONE (07:09)
[2017-11-02] MEDS ORDERED: CEFAZOLIN 1 G INJECTION IVP ONE (07:12)
[2017-11-02] MEDS ORDERED: FAMOTIDINE PB 20 MG/50 ML BAG IV ONE (07:39)
[2017-11-02] MEDS: NS 1,000 ML IV SCH ×3 (07:42→13:17)
[2017-11-02] MEDS ORDERED: PROPOFOL 500 MG/50 ML VIAL ONE ×3 (08:13→09:20)
[2017-11-02] MEDS ORDERED: KETAMINE 500 MG/10 ML INJECTION ONE ×2 (08:15→08:23)
[2017-11-02] MEDS ORDERED: MIDAZOLAM 2mg/2ml INJECTION ONE (08:15)
[2017-11-02] MEDS ORDERED: FentaNYL 100 MCG/2 ML INJECTION ONE (08:15)
[2017-11-02] MEDS ORDERED: EPHEDRINE 50mg/ml INJECTION ONE (08:45)
[2017-11-02] MEDS ORDERED: VASOPRESSIN 20unit/ml INJECTION ONE (08:51)
[2017-11-02] MEDS ORDERED: GLYCOPYRROLATE 0.4 MG/2 ML INJECTION ONE (08:56)
[2017-11-02] MEDS ORDERED: NOZIN NASAL SWAB NAS ONE (09:03)
[2017-11-02] MEDS ORDERED: PHENYLEPHRINE INJ 10 MG/ML VIAL IV ONE (09:13)
[2017-11-02] MEDS ORDERED: VANCOMYCIN 1,000 MG INJECTION ONE (09:21)
[2017-11-02] MEDS ORDERED: VANCOMYCIN 1,000 MG INJECTION OP ONE (09:49)
[2017-11-02] MEDS ORDERED: PROPOFOL 20 ML ONE (09:56)
--- NOTE | 2017-11-02 10:32 | Anesthesia Preoperative Report ---
Anesthesia Preoperative Record - Date and Time Date: 11/02/17 Preoperative Diagnosis: Periprosthetic Fracture Left distal femur NPO Since Date: 11/01/17 NPO Since Time: 23:00 Allergies/Adverse Reactions: Allergies Allergy/AdvReac Type Severity Reaction Status Date / Time Sulfa (Sulfonamide Allergy Severe Rash Verified 11/02/17 07:32 Antibiotics) codeine Allergy Mild RASH Verified 11/02/17 07:32 adhesive tape AdvReac Intermediate Rash Verified 11/02/17 07:32 prochlorperazine AdvReac Unknown Verified 11/02/17 07:32 - Vital Signs Vital Signs: Temperature 97.9 F 11/02/17 07:13 Pulse Rate 75 11/02/17 07:45 Respiratory Rate 16 11/02/17 07:13 Blood Pressure 133/95 H 11/02/17 07:13 Pulse Oximetry 92 11/02/17 07:13 Height and Weight: Height 5 ft 6 in Weight 127.7 kg Body Mass Index 45.4 - Medications Inpatient Medications: Current Medications Sodium Chloride (Normal Saline) 1,000 mls @ 50 mls/hr IV .Q20H BRANDAN Last Admin: 11/02/17 09:29 Dose: 50 mls/hr Lidocaine HCl (Xylocaine-Mpf 1% Vial) 2 mg ID O ONE Stop: 11/02/17 15:43 Last Admin: 11/02/17 07:45 Dose: Not Given Home Medications: Home Medications Medication Instructions Recorded Confirmed Type Allopurinol [Zyloprim] 100 mg PO DAILY 04/13/17 11/02/17 History Atorvastatin [Lipitor] 20 mg PO HS 04/13/17 11/02/17 History Cyanocobalamin (Vitamin B-12) 1,000 mcg PO DAILY 04/13/17 11/02/17 History [Vitamin B-12] Gabapentin 300 mg PO TID 04/13/17 11/02/17 History Omeprazole [Prilosec] 20 mg PO DAILY 04/13/17 11/02/17 History Rivaroxaban [Xarelto] 20 mg PO HS 04/13/17 11/02/17 History Hydrocodone/APAP 10/325 [[place] 1 tab PO QID PRN 28 Days #1 bottle 05/28/1711/02 Rx 10/325] MDD 40 mg desvenlafaxine ER 50 mg 50 mg PO DAILY 06/11/17 11/02/17 History tablet,extended release 24 hr Zyrtec (Cetirizine) 10 mg capsule 10 mg PO BID cap 07/02/17 11/02/17 History Bactroban 2% Cream 1 applicatio TOP PRN 07/26/17 11/02/17 History Diphenhydramine Cream [Benadryl 1 applicatio TOP TID PRN tube 08/10/17 Rx Extra Strength Cream] Ergocalciferol (Vit. D2) [Vitamin 50,000 unit PO MoWeFr@0900 cap 08/10/1711/02 Rx D-2] Ferrous Sulfate [Feosol] 324 mg PO BIDWM tab 08/10/17 11/02/17 Rx Furosemide [Lasix 40 mg Tab] 40 mg PO DAILY tab 08/10/17 11/02/17 Rx Milk of Magnesia [Mom] 30 ml PO DAILY PRN udc 08/10/17 11/02/17 Rx Nystatin Powder [Mycostatin] 1 applicatio TP BID bottle 08/10/17 11/02/17 Rx Quetiapine [Seroquel] 50 mg PO HS tab 08/10/17 11/02/17 Rx Albuterol/Ipratropium [Duoneb] 3 ml AEROSOL BID PRN 10/12/17 11/02/17 History CephALEXin [Keflex 500 mg] 500 mg PO TID 10/12/17 11/02/17 History Insulin Glargine,Hum.rec.anlog 25 unit SQ HS 10/12/17 11/02/17 History [Lantus] Insulin Glulisine [Apidra Solostar] 8 unit SQ AC 10/12/17 11/02/17 History Metoprolol Succinate (XL) [Toprol 50 mg PO DAILY 10/12/17 11/02/17 History Xl] Mupirocin Calcium [Bactroban] 1 applicatio TP BID 10/12/17 11/02/17 History PEG 3350 17gm PACKET [Miralax] 17 gm PO DAILY 10/12/17 11/02/17 History Aluminum Hydroxide 600 mg PO Q4H PRN MDD 4 11/02/17 11/02/17 History Dicloxacillin [Dynapen] 500 mg PO QID 11/02/17 11/02/17 History Is Patient on Beta Kiana?: Yes - Medical History Respiratory: Reports: Asthma, Chronic Obstructive Pulmonary Disease (COPD), Dyspnea, Pulmonary Embolism, Sleep Apnea Cardiovascular: Reports: Abnormal EKG, Angina, Arrhythmia (Quadgeminy), Coronary Artery Disease (cardiac cath showed CAD, no intervention), Heart Murmur , Hypertension, Other (h/o pulmonary edema) DENIES: Congestive Heart Failure, Hypotension, Myocardial Infarction, Rheumatic Fever, Valvular Heart Disease Gastrointestional: Reports: Hepatitis (hx hep C, no liver disfunction), Gastroesophageal Reflux Disease (moderate), Morbid Obesity Neuro/Musculoskeletal: Reports: Back Problems, Cerebrovascular Accident (minor right sided weakness and right facial droop), Depression, Headaches, Syncope, Other (osteomyelitis; gout) Renal/Endocrine: Reports: Diabetes Mellitus Type 1, Diabetes Mellitus Type 2 ( IDDM, with neuropathy to feet), Renal Failure (CKD stage 3), Other (anemia) Other History: Reports: Cancer (rt breast) DENIES: Anesthesia Reactions, Now, Blood Transfusions, Chemotherapy , Hemophilia, Malignant Hyperthermia, Sickle Cell Disease, Other - Surgical History HEENT Surgeries: Reports: Eye Surgery (cataracts), Oral Surgery (tooth removal for dentures) Cardiac Surgeries/Treatments: Reports: Cardiac Catheterization DENIES: Pacemaker Respiratory Surgery/Treatments: Reports: CPAP Use, Oxygen Administration (prn) GI Surgery/Treatments: Reports: Cholecystectomy, Hernia Repair, Colonoscopy, EGD Musculoskeletal Surgery/Tx: Reports: Orthopedic Surgery (Lt distal clavicle resection;), Shoulder Arthroscopy, Total Knee Replacement (bilateral), Other ( 2nd toe on R foot removed) Reproductive Surgery/Treatment: Reports: Lumpectomy (x2, cancerous in RT- radiation), Tubal Ligation DENIES: Mastectomy Anesthesia Reactions: None Hx Family Anesthesia Reaction: No - Social History Smoking Status: Former smoker Hx Chewing Tobacco Use: No Second Hand Exposure: No Substance Use Type: does not use Alcohol Intake Frequency: does not drink - Pertinent Findings Laboratory: CBC and BMP 11/02/17 07:26 11/02/17 07:26 BMP 11/02/17 07:26 Sodium 144 Potassium 4.7 Chloride 108 H Carbon Dioxide 27 BUN 35.0 H Creatinine 2.2 H Glucose 107 Calcium 9.1 Liver Function 11/02/17 Range/Units 07:26 Total Bilirubin 0.30 (0.20-1.30) MG/DL AST 18 (14-36) U/L ALT 8 (1-35) U/L Alkaline Phosphatase 101 (38-126) U/L Albumin 3.9 (3.5-5.0) g/dL EKG: Sinus Rhythm - Physical Exam Respiratory Exam: Present: lungs clear Cardiovascular Exam: Present: regular rate and rhythm - Airway Assessment Mallampati Score: II TMD: 3 Fingerbreadths Neck Extension: good - ASA ASA Score: 3 - Plan Anesthesia: General TIVA Peripheral Nerve Block: Other (Left Fascia Iliaca Block for post op pain control ) - Discussion Discussion: Discussed risks/options/alternatives of anesthesia and questions answered. Patient consents. Nursing pain assessment noted. Attestation Statement: Prior to the delivery of any anesthetic medication, I examined the patient, developed the plan, obtained the patient's consent and discussed the risk and benefits of the procedure with the patient/guardian. - Additional Information Seen by Anesthesia: Yes
[2017-11-02] MEDS ORDERED: ONDANSETRON 4 MG/2 ML INJECTION IVP PRN ×2 (10:35→12:22)
--- NOTE | 2017-11-02 10:35 | Anesthesia Procedure Note ---
Peripheral Nerve Blockade - Procedure Physician: Yaakov Boudreaux MD Date: 11/02/17 Discussion: Discussed risks/options/alternatives of anesthesia and questions answered. Patient consents. Nursing pain assessment noted. Block Start: 08:32 Block Stop: 08:38 Block Employed: Other (Left Fascia Iliaca Block for post op pain control) Indication: Post-Operative Pain Approach: Left Side Confirmed Position: Supine Patient: Consent, Risks/Benefits Discussed, Informed, Post Block Act. Discussed IV Sedation: Yes (TIVA in OR- see anesthesia record) Initial Vital Signs: Temperature 97.9 F 11/02/17 07:13 Temperature Source Oral 11/02/17 07:13 Pulse Rate 77 11/02/17 07:13 Respiratory Rate 16 11/02/17 07:13 Blood Pressure 133/95 H 11/02/17 07:13 Blood Pressure Mean 107 11/02/17 07:13 Blood Pressure Position Supine 11/02/17 07:13 Pulse Oximetry 92 11/02/17 07:13 Oxygen Delivery Method 11/02/17 07:13 Post Vital Signs: Temperature 97.9 F 11/02/17 07:13 Pulse Rate 75 11/02/17 07:45 Respiratory Rate 16 11/02/17 07:13 Blood Pressure 133/95 H 11/02/17 07:13 Pulse Oximetry 92 11/02/17 07:13 Ultrasound Used?: Yes - Injectate Ropivacaine (%): 0.2 (10 ml Sterile NS added for total 30 ml) Ropivacaine (mL): 20 Lidocaine (%): 1 Lidocaine (mL): 30 Injection: Injection made incrementally with constant monitoring and aspiration every 5 ml
[2017-11-02] MEDS ORDERED: ACETAMINOPHEN IV 1,000 MG/100 ML VIAL IV ONE (10:36)
--- NOTE | 2017-11-02 10:42 | Remote Fluorsocopy Report ---
Indication: LT DISTAL FEMUR ORIF REVISION PROCEDURE: RF knee LT 2 view: Encounter: Initial Comparison: None. Findings: Two intraoperative spot views demonstrate a side plate and screw fixation of the distal left femur. And the second image demonstrates a probe with its tip overlying the medial metadiaphysis of the distal left femoral diaphysis. Impression: Intraoperative localization for ORIF of the left distal femur. .
[2017-11-02] MEDS: MORPHINE SULFATE 10mg/ml VIAL IVP PRN ×4 (10:45→11:33)
--- NOTE | 2017-11-02 11:06 | Family Practice History&Phys ---
History of Present Illness Chief complaint: Non healing femur fracture HPI: She had a femur fracture earlier this year. She had surgical repair. It has not had union. She has had an infection in the joint and is on chronic antibiotics. She currently has been stable. No evidence of infection has been found recently. She denies fevers chills sweats nausea or vomiting. She denies diarrhea. She is here for surgical intervention. [facility] Patient Stated Medical History Cerebrovascular Accident Yes: minor right sided weakness and right facial droop Migraine Yes Peripheral Neuropathy Yes Syncope Yes Dental Problems Yes Angina Yes Cardiac Arrhythmia Yes: Quadgeminy Congestive Heart Failure No Coronary Artery Disease Yes: cardiac cath showed CAD, no intervention Heart Murmur Yes Hypertension Yes Hypotension No Myocardial Infarction No Rheumatic Fever No Valvular Heart Disease No Other Cardiology Yes: h/o pulmonary edema Asthma Yes Chronic Obstructive Pulmonary Yes Disease (COPD) Pulmonary Embolism Yes Sleep Apnea Yes Diabetes Mellitus Type 1 Yes Diabetes Mellitus Type 2 Yes: IDDM, with neuropathy to feet Gastroesophageal Reflux Yes: moderate Disease Hepatitis Yes: hx hep C, no liver disfunction Hx Incontinence Yes Hx Kidney Stones Yes Hx Renal Disease Yes: CKD 3 Anemia Yes Clotting Problems Yes Osteoarthritis Yes Other Musculoskeletal Yes: osteomyelitis; gout Cellulitis Yes Clostridium Difficile Yes Sepsis Yes Anesthesia Reactions No Blood Transfusions No Chemotherapy No Malignant Hyperthermia No Other No Depression Yes Now No Medical History Updates: COPD. Gout. HL. Depr. CHF. Diabetic peripheral neuropathy. DM. Tinea cruris. GERD. Hypokalemia. Insomnia. Arrhythmia. RLS Surgical History: cholecystectomy, tubal ligation, breast lumpectomy cancer, ventral herniorrhaghy, bilateral total knee replacements Dr. Leos, Left shoulder anterior acromioplasty and open clavicular resection 09-04-10, normal colonoscopy 06-01-2008 Dr. Morales, EGD Irregular GE junction 06-01-2008 Dr. Morales, HEART CATH EF 65% and mild CAD in LAD 03-25-16 Dr. Conn. S/p R 2nd toe amputation 11/23/16. Lt Femural Fx 05-25-17 - Social History Smoking status: Former smoker second hand exposure: No Substance use type: does not use Alcohol intake frequency: does not drink Current occupational status: disabled Does patient use chewing tobacco?: No Current residence: [place] Medications Home Medications Medication Instructions Recorded Confirmed Type Allopurinol [Zyloprim] 100 mg PO DAILY 04/13/17 11/02/17 History Atorvastatin [Lipitor] 20 mg PO HS 04/13/17 11/02/17 History Cyanocobalamin (Vitamin B-12) 1,000 mcg PO DAILY 04/13/17 11/02/17 History [Vitamin B-12] Gabapentin 300 mg PO TID 04/13/17 11/02/17 History Omeprazole [Prilosec] 20 mg PO DAILY 04/13/17 11/02/17 History Rivaroxaban [Xarelto] 20 mg PO HS 04/13/17 11/02/17 History Hydrocodone/APAP 10/325 [[place] 1 tab PO QID PRN 28 Days #1 bottle 05/28/1711/02 Rx 10/325] MDD 40 mg desvenlafaxine ER 50 mg 50 mg PO DAILY 06/11/17 11/02/17 History tablet,extended release 24 hr Zyrtec (Cetirizine) 10 mg capsule 10 mg PO BID cap 07/02/17 11/02/17 History Bactroban 2% Cream 1 applicatio TOP PRN 07/26/17 11/02/17 History Diphenhydramine Cream [Benadryl 1 applicatio TOP TID PRN tube 08/10/17 Rx Extra Strength Cream] Ergocalciferol (Vit. D2) [Vitamin 50,000 unit PO MoWeFr@0900 cap 08/10/1711/02 Rx D-2] Ferrous Sulfate [Feosol] 324 mg PO BIDWM tab 08/10/17 11/02/17 Rx Furosemide [Lasix 40 mg Tab] 40 mg PO DAILY tab 08/10/17 11/02/17 Rx Milk of Magnesia [Mom] 30 ml PO DAILY PRN udc 08/10/17 11/02/17 Rx Nystatin Powder [Mycostatin] 1 applicatio TP BID bottle 08/10/17 11/02/17 Rx Quetiapine [Seroquel] 50 mg PO HS tab 08/10/17 11/02/17 Rx Albuterol/Ipratropium [Duoneb] 3 ml AEROSOL BID PRN 10/12/17 11/02/17 History CephALEXin [Keflex 500 mg] 500 mg PO TID 10/12/17 11/02/17 History Insulin Glargine,Hum.rec.anlog 25 unit SQ HS 10/12/17 11/02/17 History [Lantus] Insulin Glulisine [Apidra Solostar] 8 unit SQ AC 10/12/17 11/02/17 History Metoprolol Succinate (XL) [Toprol 50 mg PO DAILY 10/12/17 11/02/17 History Xl] Mupirocin Calcium [Bactroban] 1 applicatio TP BID 10/12/17 11/02/17 History PEG 3350 17gm PACKET [Miralax] 17 gm PO DAILY 10/12/17 11/02/17 History Aluminum Hydroxide 600 mg PO Q4H PRN MDD 4 11/02/17 11/02/17 History Dicloxacillin [Dynapen] 500 mg PO QID 11/02/17 11/02/17 History Allergies Allergy/AdvReac Type Severity Reaction Status Date / Time Sulfa (Sulfonamide Allergy Severe Rash Verified 11/02/17 07:32 Antibiotics) codeine Allergy Mild RASH Verified 11/02/17 07:32 adhesive tape AdvReac Intermediate Rash Verified 11/02/17 07:32 prochlorperazine AdvReac Unknown Verified 11/02/17 07:32 Exam Vital signs: Temperature 97.4 F 11/02/17 10:09 Pulse Rate 72 11/02/17 10:45 Respiratory Rate 15 11/02/17 10:20 Blood Pressure 113/62 11/02/17 10:55 Pulse Oximetry 98 11/02/17 10:20 - Constitutional no acute distress, well nourished, well developed - Routine HEENT Exam Head: Present: normocephalic, atraumatic - Routine Neck Exam Present: supple Results - Labs Result diagrams: 11/02/17 07:26 11/02/17 07:26 Abnormal lab results 11/02/17 11/02/17 Range/Units 07:26 07:26 Hgb 11.3 L (12-16) GM/DL MCHC 30.7 L (31-37) GM/DL RDW Std Deviation 50.9 H (36.9-50.2) FL Eos % (Auto) 9.7 H (0-4) % Eos # (Auto) 0.8 H (0-0.5) T/MM3 Turbidity 22 H (0-20) Chloride 108 H (98-107) MEQ/L BUN 35.0 H (7-17) MG/DL Creatinine 2.2 H (0.7-1.2) mg/dL Calculated Osmolality 285 H (261-280) MOSM/KG Short CBC 11/02/17 Range/Units 07:26 WBC 8.3 (4.5-11.0) T/MM3 Hgb 11.3 L (12-16) GM/DL Hct 36.8 (36-46) % Plt Count 156 (130-400) T/MM3 BMP 11/02/17 07:26 Sodium 144 Potassium 4.7 Chloride 108 H Carbon Dioxide 27 BUN 35.0 H Creatinine 2.2 H Glucose 107 Calcium 9.1 Liver Function 11/02/17 Range/Units 07:26 Total Bilirubin 0.30 (0.20-1.30) MG/DL AST 18 (14-36) U/L ALT 8 (1-35) U/L Alkaline Phosphatase 101 (38-126) U/L Albumin 3.9 (3.5-5.0) g/dL All other labs normal. Assessment and Plan - Assessment and Plan (1) Femur fracture, left Current visit: No Status: Inactive Surgery today. (2) DM type 2 (diabetes mellitus, type 2) Current visit: No Status: Chronic Sliding-scale post surgery until routine diet (3) COPD (chronic obstructive pulmonary disease) Current visit: No Status: Acute (4) CKD (chronic kidney disease) stage 3, GFR 30-59 ml/min Current visit: No Status: Chronic (5) HTN (hypertension) Current visit: No Status: Chronic
[2017-11-02] MEDS ORDERED: ROPIVACAINE 0.5% (5mg/ml) 30ml INJ ONE (11:53)
--- NOTE | 2017-11-02 12:17 | Operative Note ---
DATE OF OPERATION 11/02/2017 PREOPERATIVE DIAGNOSIS Left distal femoral nonunion. POSTOPERATIVE DIAGNOSIS Left distal femoral nonunion. PROCEDURE Open debridement of left distal femoral nonunion site with application of synthetic graft with bone marrow aspirate. SURGEON Siva Menendez MD ANESTHESIA TIVA with iliofascial block BLOOD DONOR UNIT ASSISTANT Lupe Roque APRN COMPLICATIONS None EBL AND FLUIDS Please see Anesthetic records. DESCRIPTION OF PROCEDURE Mrs. Flores and her left thigh were identified and marked in the preoperative holding area. She was brought back to the operating suite. An iliofascial block was performed. She was placed under anesthesia. The left lower extremity was prepped and draped in my normal sterile fashion. Time-out was performed. I started by making a lateral incision at the previous lateral incision site. There was a small area just under the skin which appeared to be like a small abscess. A culture swab was taken of this and sent for a stat gram stain which came back with no organisms. It will be cultured. There were no other signs of infection during the remainder of the procedure. Sharp dissection was carried down through the previous scar tissue and then the IT band was split. The fracture site was identified as was the previous lateral plate. There were no signs of necrosis or gross infection. The knee joint was entered as well the anterior femoral flange was noted. Synovial fluid was also seen and cultured. There did not appear to be any signs of infection clinically of the synovial fluid. The wound was thoroughly irrigated. There was fibrous-type tissue at the nonunion site which was debrided with a curet. There was a gap approximately 1 cm just anterior to the plate. There was more bone and almost completely approximated bone medially at the fracture site. All nonviable tissue was debrided. I then used a small drill bit to drill both sides of the nonunion which did give good blood flow. I then made a small incision just medial to the patellar tendon. I placed a trocar into this into the knee joint and hooked it up to six liters of normal saline and this was ran through the knee joint and allowed to come out through the lateral incision, while I moved to the iliac crest. A 1 cm incision was made over the iliac crest , 6 cm posterior to the ASIS and sharp trocar was taken down to the iliac crest and then entered the iliac crest. Trocar was removed and aspirated 5 mL of bone marrow. The trocar was advanced another 2 cm and then aspirated another 5 mL of bone marrow. The trocar was removed from the iliac crest. This bone marrow was then mixed with one dose of Vitoss on the back table. Once a complete mixture was made, this Vitoss was packed into the nonunion site. The IT band was then closed with #1 PDS. Subcutaneous tissue was closed with 2-0 Vicryl. The skin was closed with megan. Sterile dressings were placed. The drapes were removed. She was taken back to the recovery room under the care of Anesthesia. She tolerated the procedure well and there were no complications. MILO
--- NOTE | 2017-11-02 12:18 | Anesthesia Procedure Note ---
Peripheral Nerve Blockade - Procedure Physician: Yaakov Boudreaux MD Date: 11/02/17 Discussion: Discussed risks/options/alternatives of anesthesia and questions answered. Patient consents. Nursing pain assessment noted. Block Start: 12:58 Block Stop: 13:00 Block Employed: Other (Left Fascia Iliaca Block for post op pain control- additional dose) Indication: Post-Operative Pain Approach: Left Side Confirmed Position: Supine Patient: Consent, Risks/Benefits Discussed, Informed, Post Block Act. Discussed Initial Vital Signs: Temperature 97.9 F 11/02/17 07:13 Temperature Source Oral 11/02/17 07:13 Pulse Rate 77 11/02/17 07:13 Respiratory Rate 16 11/02/17 07:13 Blood Pressure 133/95 H 11/02/17 07:13 Blood Pressure Mean 107 11/02/17 07:13 Blood Pressure Position Supine 11/02/17 07:13 Pulse Oximetry 92 11/02/17 07:13 Oxygen Delivery Method 11/02/17 07:13 Post Vital Signs: Temperature 97.4 F 11/02/17 10:09 Pulse Rate 61 11/02/17 11:45 Respiratory Rate 15 11/02/17 11:44 Blood Pressure 80/35 11/02/17 11:45 Pulse Oximetry 98 11/02/17 11:25 Initial Pain Pain Score: 8 Post Block Pain Score: 4 Prep: Chlorhexadine/ETOH Ultrasound Used?: Yes - Injectate Ropivacaine (%): 0.5 Ropivacaine (mL): 30 Lidocaine (%): 1 Lidocaine (mL): 30 Was Epi 1:200,000 Used?: No Injection: Injection made incrementally with constant monitoring and aspiration every 5 ml
[2017-11-02] MEDS ORDERED: DiphenhydrAMINE 50 MG/ML INJECTION IVP PRN (12:22)
[2017-11-02 12:55] VITALS: BMI 44.4
[2017-11-02] MEDS ORDERED: FALL RISK - PHARMACY CONSULT MC ONE (13:08)
[2017-11-02] MEDS: DICLOXACILLIN 250 MG CAPSULE PO SCH ×3 (13:25→21:30)
[2017-11-02] MEDS: GABAPENTIN 300 MG CAPSULE PO SCH ×2 (14:56→21:30)
[2017-11-02] MEDS ORDERED: LIDOCAINE 1% (10mg/ml) 2mL INJ PF SDV ID ONE (15:42)
[2017-11-02] MEDS ORDERED: LR 1,000 ML IV SCH (15:45)
[2017-11-02] MEDS: CEFAZOLIN 3 G in NS 100 ML IV SCH (16:46)
[2017-11-02] MEDS: FERROUS SULFATE 324 MG TABLET PO SCH (16:46)
[2017-11-02] MEDS ORDERED: KETAMINE 500 MG/10 ML INJECTION IVP ONE (18:00)
[2017-11-02] MEDS ORDERED: SALINE FLUSH 10ml SYRINGE IV ONE (18:00)
[2017-11-02] MEDS ORDERED: MAG-AL + SIM ORAL LIQUID 30ml PO PRN (18:33)
--- NOTE | 2017-11-02 20:21 | Anesthesia Postoperative Note ---
- Date and Time Date: 11/02/17 Time: 12:30 - Status Patient Participated in Evaluation: Patient Participated in Person Vital Signs: Temperature 97.6 F 11/02/17 19:44 Pulse Rate 69 11/02/17 19:44 Respiratory Rate 19 11/02/17 19:44 Blood Pressure 128/83 11/02/17 19:44 Pulse Oximetry 97 11/02/17 20:17 Respiratory Function: Airway Patent Cardiovascular Function: Regular Pulse EKG: Sinus Rhythm Mental Status: Alert and Oriented Pain Intensity: 3 Hydration: IV Infusing Complications During Recover: None Apparent - Follow-Up Instructions Instructions: Per Surgeon
[2017-11-02] MEDS: INSULIN ASPART 100unit/ml INJECTION SQ PRN (21:29)
[2017-11-02] MEDS: CETIRIZINE 10 MG TABLET PO SCH (21:30)
[2017-11-02] MEDS: INSULIN GLARGINE 100unit/ml INJECTION SQ SCH (21:30)
[2017-11-02] MEDS: SENNOSIDES 8.6 MG TABLET PO SCH (21:30)
[2017-11-02] MEDS: QUETIAPINE 50 MG TABLET PO SCH (21:31)
[2017-11-02] MEDS: ATORVASTATIN 20 MG TABLET PO SCH (21:31)
[2017-11-02] MEDS: RIVAROXABAN 20 MG TABLET PO SCH (21:31)
[2017-11-03] MEDS: CEFAZOLIN 3 G in NS 100 ML IV SCH (00:30)
[2017-11-03] MEDS: NS 1,000 ML IV SCH ×2 (00:31→14:20)
[2017-11-03] MEDS: DICLOXACILLIN 250 MG CAPSULE PO SCH ×5 (05:32→20:09)
[2017-11-03] MEDS: OMEPRAZOLE 20 MG CAPSULE PO SCH (05:32)
--- NOTE | 2017-11-03 06:40 | Family Practice Progress Note ---
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 She reports pain is controlled. Current Visit: Yes (2) Stage 4 chronic kidney disease Status: Acute Assessment and plan: Normal GFR for hers in the 30s. Currently she is in the 20s. We'll continue to monitor and IV fluids. And looks like she's currently getting Lasix and she had a dose of vancomycin Current Visit: Yes (3) DM type 2 (diabetes mellitus, type 2) Status: Chronic Assessment and plan: Glucometer reading these range from 94 up to 156. She is on a sliding scale. She 's not eating normally yet. Continue sliding scale until taking in a regular diet. Current Visit: No (4) COPD (chronic obstructive pulmonary disease) Status: Acute Assessment and plan: Stable Current Visit: No (5) CKD (chronic kidney disease) stage 3, GFR 30-59 ml/min Status: Suspected Assessment and plan: Stable Current Visit: No (6) HTN (hypertension) Status: Chronic Current Visit: No (7) Obstructive sleep apnea Status: Acute Current Visit: Yes (8) Anemia following surgery Status: Acute Current Visit: No (9) Hyperkalemia Status: Acute Assessment and plan: She is not currently getting oral potassium. Recheck tomorrow. Continue IV fluids Current Visit: Yes Subjective - Subjective Principal diagnosis: Day one postoperatively Interval history: She reports that she had heartburn yesterday and it made her little nauseous. She reports her pain is well-controlled. She said no vomiting. She is passing gas from the bottom. She did not sleep well because of her CPAP machine. Exam Vital signs: Temperature 98.4 F 11/03/17 04:08 Pulse Rate 70 11/03/17 04:08 Respiratory Rate 20 11/03/17 04:08 Blood Pressure 137/57 11/03/17 04:08 Pulse Oximetry 100 11/02/17 22:49 Inpatient Medications: Generic Name Dose Route Start Last Admin Trade Name Freq PRN Reason Stop Dose Admin Hydrocodone Bitart/Acetaminophen 1 tab 11/02/17 12:22 [place] 10/325 PO QID PRN Pain Al Hydroxide/Mg Hydroxide 30 ml 11/02/17 18:33 11/02/17 18:36 Maalox Plus PO 30 ml Q3H PRN Administration Indigestion Atorvastatin Calcium 20 mg 11/02/17 21:00 11/02/17 21:31 Lipitor PO 20 mg HS BRANDAN Administration Bisacodyl 10 mg 11/04/17 20:00 Dulcolax RECTALLY 11/04/17 20:01 DAILY [facility] Cetirizine HCl 10 mg 11/02/17 21:00 11/02/17 21:30 Zyrtec PO 10 mg BID BRANDAN Administration Desvenlafaxine Succinate 50 mg 11/03/17 09:00 Pristiq PO DAILY [facility] Dicloxacillin Sodium 500 mg 11/02/17 13:00 11/03/17 05:32 Dynapen PO 500 mg QID/E BRANDAN Administration Diphenhydramine HCl 25 mg 11/02/17 12:22 Benadryl IVP Q6HR PRN Itching Diphenhydramine HCl 25 mg 11/02/17 12:22 Benadryl PO Q6H PRN Itching Ergocalciferol 50,000 unit 11/03/17 09:00 Vitamin D-2 PO [id number] [facility] Ferrous Sulfate 324 mg 11/02/17 17:30 11/02/17 16:46 Feosol PO 324 mg BIDWM BRANDAN Administration Furosemide 40 mg 11/03/17 09:00 Lasix 40 Mg Tab PO DAILY [facility] Gabapentin 300 mg 11/02/17 15:00 11/02/17 21:30 Neurontin PO 300 mg TID BRANDAN Administration Sodium Chloride 1,000 mls @ 80 mls/hr 11/02/17 12:22 11/03/17 00:31 Normal Saline IV 80 mls/hr .[id number] BRANDAN Administration Insulin Aspart 2 - 8 unit 11/02/17 12:22 11/02/17 21:29 Novolog SQ 2 unit SS PRN Administration Protocol Protocol Insulin Glargine 25 unit 11/02/17 21:00 11/02/17 21:30 Lantus SQ 25 unit HS BRANDAN Administration Magnesium Hydroxide 30 ml 11/02/17 12:22 Mom PO DAILY PRN Constipation Metoprolol Succinate 50 mg 11/03/17 09:00 Toprol Xl PO DAILY [facility] Omeprazole 20 mg 11/03/17 06:30 11/03/17 05:32 Prilosec PO 20 mg ACB BRANDAN Administration Ondansetron HCl 4 mg 11/02/17 12:22 Zofran IVP Q4H PRN Nausea &/or vomiting Polyethylene Glycol 17 gm 11/03/17 09:00 Miralax PO DAILY BRANDAN Quetiapine Fumarate 50 mg 11/02/17 21:00 11/02/17 21:31 Seroquel PO 50 mg HS BRANDAN Administration Rivaroxaban 20 mg 11/02/17 21:00 11/02/17 21:31 Xarelto PO 20 mg HS BRANDAN Administration Senna 17.2 mg 11/02/17 21:00 11/02/17 21:30 Senna Lax PO 17.2 mg HS BRANDAN Administration Senna 17.2 mg 11/03/17 10:10 Senna Lax PO DAILY PRN Constipation Discontinued Medications Generic Name Dose Route Start Last Admin Trade Name Freq PRN Reason Stop Dose Admin Cefazolin Sodium 3 g 11/02/17 07:12 11/02/17 08:20 Kefzol 1 Gm Vial IVP 11/02/17 07:13 3 g PREOP ONE Administration Sodium Chloride 1,000 mls @ 50 mls/hr 11/02/17 06:00 11/02/17 12:40 Normal Saline IV Infused .Q20H BRANDAN Infusion Famotidine/Sodium Chloride 20 mg in 50 mls @ 100 mls/hr 11/02/17 07:39 07:45 Pepcid Premix IV 11/02/17 08:08 100 mls/hr PREOP ONE Administration Acetaminophen 1,000 mg in 100 mls @ 400 mls/hr 11/02/17 10:36 11/02/17 10:54 Ofirmev 1 Gm IV 11/02/17 10:50 Infused O ONE Infusion Cefazolin Sodium 3 g/ Sodium 100 mls @ 200 mls/hr 11/02/17 16:30 11/03/17 01: 00 Chloride IV 11/03/17 00:59 Infused Q8H BRANDAN Infusion Isopropyl Alcohol 1 each 11/02/17 09:03 11/02/17 08:08 Nozin Nasal Swab MERY 11/02/17 09:04 3 each PREOP ONE Administration Lidocaine HCl 2 mg 11/02/17 15:42 11/02/17 07:45 Xylocaine-Mpf 1% Vial ID 11/02/17 15:43 Not Given O ONE Morphine Sulfate 0 mg 11/02/17 10:35 11/02/17 11:33 Morphine Sulfate Vial IVP 2 mg Q10M PRN Administration Ondansetron HCl 4 mg 11/02/17 10:35 11/02/17 10:43 Zofran IVP 4 mg O PRN Administration Nausea &/or vomiting Pharmacy Consult 1 each 11/02/17 13:08 11/02/17 16:37 Pharmacy Consult - Fall Risk [facility] 11/02/17 13:09 Not Given ONE TIME ONE Vancomycin HCl 1,000 mg 11/02/17 09:49 11/02/17 09:49 Vancocin OP 11/02/17 09:50 1,000 mg O ONE Administration - Constitutional no acute distress, well developed - Routine Neck Exam Present: supple - Routine Respiratory Exam Present: CTA bilaterally - Routine Cardiovascular Exam Present: RRR - Routine Abdominal Exam Present: soft, normoactive bowel sounds, non distended - Routine Extremities Exam Present: no edema - Routine Skin Exam Present: intact - Additional findings Additional findings: 11/03/17 04:04 11/03/17 04:04
--- NOTE | 2017-11-03 08:46 | Orthopedic Progress Note ---
Date: Date: 11/03/17 Time: 842 Subjective/Severity of Illness: Lauren is lying in bed this morning during rounds. Patient post-op day 1, she underwent open debridement of left distal femoral nonunion with application of synthetic graft with bone marrow aspirate 11/03/[address] Menendez. Patient is sleeping this morning but arouses easily, reports she was unable to sleep well last night due to noise. She feels well otherwise, pain has been well controlled with [place] prn. She is currently requiring oxygen, and used CPAP overnight. She denies SOA, CP, nausea. Tolerating PO well. BG have been well controlled with Lantus and SS Novolog, fasting 98 this morning. Hgb 9.4 down from 11.3 Orthopedic Exam Vital signs: Temperature 97.9 F 11/03/17 08:00 Pulse Rate 72 11/03/17 08:00 Respiratory Rate 18 11/03/17 08:00 Blood Pressure 128/54 11/03/17 08:00 Pulse Oximetry 100 11/03/17 08:00 - Constitutional General Appearance: Present: alert, orientated x3, cooperative, no acute distress - Respiratory Exam Present: CTA bilaterally, non-labored - Cardiovascular Exam Present: Regular Rate/Rhythm, pedal pulses intact - Abdominal Exam Present: soft. Absent: tenderness, distended - Extremities Exam Present: no edema, pulses intact - Dressing Dressing: dry, intact, no drainage Comments: mepilex left lateral distal femur. anterior knee dressing c/d/i, left illiac crest dressing c/d/i. - Integumentary Exam Present: pink, warm, dry - Neurological Exam Present: intact to light touch, no deficits - Psychiatric Exam Present: alert, oriented - Labs Result Diagrams: 11/03/17 04:04 11/03/17 04:04 Abnormal lab results 11/03/17 11/03/17 Range/Units 04:04 04:04 Hgb 9.4 L D (12-16) GM/DL Hct 31.5 L D (36-46) % Potassium 5.2 H (3.6-5) MEQ/L Chloride 110 H (98-107) MEQ/L BUN 33.0 H (7-17) MG/DL Creatinine 2.1 H (0.7-1.2) mg/dL Calculated Osmolality 286 H (261-280) MOSM/KG Calcium 8.3 L D (8.4-10.2) MG/DL H & H 11/02/17 11/03/17 Range/Units 07:26 04:04 Hgb 11.3 L 9.4 L D (12-16) GM/DL Hct 36.8 31.5 L D (36-46) % Orthopedic Assessment and Plan (1) 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 PT/OT services to improve independent function. Patient may be flat foot toe touch with 25% weight bearing through left leg. Knee immobilizer prn if knee feels unstable to patient. Dr. Lopez managing medically. CKD [employer] 2.1 from baseline of 1.47. K+ 5.2. IVF resuscitation continued this morning. Discharge Planning per Case Management. - Anticoagulation Therapy Anticoagulation: Resume home anticoagulant Hospital Course Summary Disclaimer: The visit summary below is not to be considered part of the above Progress Note.
[2017-11-03] MEDS: CETIRIZINE 10 MG TABLET PO SCH ×2 (09:20→20:10)
[2017-11-03] MEDS: ERGOCALCIFEROL 50,000 UNIT CAPSULE PO SCH (09:20)
[2017-11-03] MEDS: Desvenlafaxine SR 50 MG TABLET PO SCH (09:20)
[2017-11-03] MEDS: GABAPENTIN 300 MG CAPSULE PO SCH ×3 (09:20→20:09)
[2017-11-03] MEDS: FERROUS SULFATE 324 MG TABLET PO SCH ×2 (09:21→17:17)
[2017-11-03] MEDS: FUROSEMIDE 40 MG TABLET PO SCH (09:21)
[2017-11-03] MEDS: POLYETHYL GLYCOL 3350 17gm PACKET PO SCH (09:21)
[2017-11-03] MEDS ORDERED: SENNOSIDES 8.6 MG TABLET PO PRN (10:10)
[2017-11-03] MEDS: HYDROCODONE/APAP 10 MG/325 MG TABLET PO PRN ×2 (10:28→17:16)
[2017-11-03] MEDS: DiphenhydrAMINE 25 MG CAPSULE PO PRN (10:28)
[2017-11-03] MEDS ORDERED: SALINE FLUSH 10ml SYRINGE IV PRN (14:42)
[2017-11-03] MEDS: INSULIN ASPART 100unit/ml INJECTION SQ PRN (20:07)
[2017-11-03] MEDS: INSULIN GLARGINE 100unit/ml INJECTION SQ SCH (20:08)
[2017-11-03] MEDS: RIVAROXABAN 20 MG TABLET PO SCH (20:09)
[2017-11-03] MEDS: SENNOSIDES 8.6 MG TABLET PO SCH (20:09)
[2017-11-03] MEDS: QUETIAPINE 50 MG TABLET PO SCH (20:09)
[2017-11-03] MEDS: ATORVASTATIN 20 MG TABLET PO SCH (20:10)
[2017-11-03] MEDS ORDERED: ACETAMINOPHEN 500 MG TABLET PO PRN (20:41)
[2017-11-04] MEDS: HYDROCODONE/APAP 10 MG/325 MG TABLET PO PRN ×2 (00:09→09:12)
[2017-11-04] MEDS: NS 1,000 ML IV SCH ×3 (02:05→16:00)
[2017-11-04] MEDS: OMEPRAZOLE 20 MG CAPSULE PO SCH (06:45)
[2017-11-04] MEDS: DICLOXACILLIN 250 MG CAPSULE PO SCH ×4 (06:45→20:46)
--- NOTE | 2017-11-04 07:50 | Family Practice Progress Note ---
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 Attempted consultation for nephrology. Increase ivf. Current Visit: Yes (3) DM type 2 (diabetes mellitus, type 2) Status: Chronic Assessment and plan: stable Current Visit: No (4) COPD (chronic obstructive pulmonary disease) Status: Acute Assessment and plan: Stable Current Visit: No (5) CKD (chronic kidney disease) stage 3, GFR 30-59 ml/min Status: Suspected Current Visit: No (6) HTN (hypertension) Status: Chronic Current Visit: No (7) Obstructive sleep apnea Status: Acute Current Visit: Yes (8) Anemia following surgery Status: Acute Current Visit: No (9) Hyperkalemia Status: Acute Assessment and plan: Increase ivf rate Current Visit: Yes Subjective - Subjective Principal diagnosis: PO day 2 Interval history: She reports that she has a bad appetite but is eating. She is urinating without problems. She denies fevers chills sweats or nausea. She does have quite a bit of pain in the right knee but the oral pain medications are working okay. Exam Vital signs: Temperature 97.8 F 11/04/17 07:23 Pulse Rate 68 11/04/17 07:11 Respiratory Rate 20 11/04/17 07:11 Blood Pressure 168/71 H 11/04/17 07:11 Pulse Oximetry 94 11/04/17 07:23 Inpatient Medications: Generic Name Dose Route Start Last Admin Trade Name Freq PRN Reason Stop Dose Admin Acetaminophen 500 mg 11/03/17 20:41 11/03/17 20:50 Tylenol PO 500 mg Q6H PRN Administration Pain Hydrocodone Bitart/Acetaminophen 1 tab 11/02/17 12:22 11/04/17 00:09 [place] 10/325 PO 1 tab QID PRN Administration Pain Al Hydroxide/Mg Hydroxide 30 ml 11/02/17 18:33 11/02/17 18:36 Maalox Plus PO 30 ml Q3H PRN Administration Indigestion Atorvastatin Calcium 20 mg 11/02/17 21:00 11/03/17 20:10 Lipitor PO 20 mg HS BRANDAN Administration Bisacodyl 10 mg 11/04/17 20:00 Dulcolax RECTALLY 11/04/17 20:01 DAILY [facility] Cetirizine HCl 10 mg 11/02/17 21:00 11/03/17 20:10 Zyrtec PO 10 mg BID BRANDAN Administration Desvenlafaxine Succinate 50 mg 11/03/17 09:00 11/03/17 09:20 Pristiq PO 50 mg DAILY BRANDAN Administration Dicloxacillin Sodium 500 mg 11/02/17 13:00 11/04/17 06:45 Dynapen PO 500 mg QID/E BRANDAN Administration Diphenhydramine HCl 25 mg 11/02/17 12:22 Benadryl IVP Q6HR PRN Itching Diphenhydramine HCl 25 mg 11/02/17 12:22 11/03/17 10:28 Benadryl PO 25 mg Q6H PRN Administration Itching Ergocalciferol 50,000 unit 11/03/17 09:00 11/03/17 09:20 Vitamin D-2 PO 50,000 unit [id number] BRANDAN Administration Ferrous Sulfate 324 mg 11/02/17 17:30 11/03/17 17:17 Feosol PO 324 mg BIDWM BRANDAN Administration Furosemide 40 mg 11/03/17 09:00 11/03/17 09:21 Lasix 40 Mg Tab PO 40 mg DAILY BRANDAN Administration Gabapentin 300 mg 11/02/17 15:00 11/03/17 20:09 Neurontin PO 300 mg TID BRANDAN Administration Sodium Chloride 1,000 mls @ 80 mls/hr 11/02/17 12:22 11/04/17 02:05 Normal Saline IV 80 mls/hr .[id number] BRANDAN Administration Insulin Aspart 2 - 8 unit 11/02/17 12:22 11/03/17 20:07 Novolog SQ 2 unit SS PRN Administration Protocol Protocol Insulin Glargine 25 unit 11/02/17 21:00 11/03/17 20:08 Lantus SQ 25 unit HS BRANDAN Administration Magnesium Hydroxide 30 ml 11/02/17 12:22 Mom PO DAILY PRN Constipation Metoprolol Succinate 50 mg 11/03/17 09:00 11/03/17 09:20 Toprol Xl PO 50 mg DAILY BRANDAN Administration Omeprazole 20 mg 11/03/17 06:30 11/04/17 06:45 Prilosec PO 20 mg ACB BRANDAN Administration Ondansetron HCl 4 mg 11/02/17 12:22 Zofran IVP Q4H PRN Nausea &/or vomiting Polyethylene Glycol 17 gm 11/03/17 09:00 11/03/17 09:21 Miralax PO 17 gm DAILY BRANDAN Administration Quetiapine Fumarate 50 mg 11/02/17 21:00 11/03/17 20:09 Seroquel PO 50 mg HS BRANDAN Administration Rivaroxaban 20 mg 11/02/17 21:00 11/03/17 20:09 Xarelto PO 20 mg HS BRANDAN Administration Senna 17.2 mg 11/02/17 21:00 11/03/17 20:09 Senna Lax PO 17.2 mg HS BRANDAN Administration Senna 17.2 mg 11/03/17 10:10 Senna Lax PO DAILY PRN Constipation Sodium Chloride 10 ml 11/03/17 14:42 11/03/17 14:30 Iv Flush IV 10 ml PRN PRN Administration Flushing Discontinued Medications Generic Name Dose Route Start Last Admin Trade Name Freq PRN Reason Stop Dose Admin Cefazolin Sodium 3 g 11/02/17 07:12 11/02/17 08:20 Kefzol 1 Gm Vial IVP 11/02/17 07:13 3 g PREOP ONE Administration Sodium Chloride 1,000 mls @ 50 mls/hr 11/02/17 06:00 11/02/17 12:40 Normal Saline IV Infused .Q20H BRANDAN Infusion Famotidine/Sodium Chloride 20 mg in 50 mls @ 100 mls/hr 11/02/17 07:39 07:45 Pepcid Premix IV 11/02/17 08:08 100 mls/hr PREOP ONE Administration Acetaminophen 1,000 mg in 100 mls @ 400 mls/hr 11/02/17 10:36 11/02/17 10:54 Ofirmev 1 Gm IV 11/02/17 10:50 Infused O ONE Infusion Cefazolin Sodium 3 g/ Sodium 100 mls @ 200 mls/hr 11/02/17 16:30 11/03/17 01: 00 Chloride IV 11/03/17 00:59 Infused Q8H BRANDAN Infusion Isopropyl Alcohol 1 each 11/02/17 09:03 11/02/17 08:08 Nozin Nasal Swab MERY 11/02/17 09:04 3 each PREOP ONE Administration Lidocaine HCl 2 mg 11/02/17 15:42 11/02/17 07:45 Xylocaine-Mpf 1% Vial ID 11/02/17 15:43 Not Given O ONE Morphine Sulfate 0 mg 11/02/17 10:35 11/02/17 11:33 Morphine Sulfate Vial IVP 2 mg Q10M PRN Administration Ondansetron HCl 4 mg 11/02/17 10:35 11/02/17 10:43 Zofran IVP 4 mg O PRN Administration Nausea &/or vomiting Pharmacy Consult 1 each 11/02/17 13:08 11/02/17 16:37 Pharmacy Consult - Fall Risk [facility] 11/02/17 13:09 Not Given ONE TIME ONE Vancomycin HCl 1,000 mg 11/02/17 09:49 11/02/17 09:49 Vancocin OP 11/02/17 09:50 1,000 mg O ONE Administration - Constitutional no acute distress - Routine Neck Exam Present: supple - Routine Respiratory Exam Present: CTA bilaterally - Routine Cardiovascular Exam Present: RRR - Routine Abdominal Exam Present: soft, normoactive bowel sounds, non distended - Routine Extremities Exam Present: no edema Comments: palpable pulse in left foot
--- NOTE | 2017-11-04 08:17 | Orthopedic Progress Note ---
Date: Date: 11/04/17 Time: 807 Subjective/Severity of Illness: Lauren is resting in bed this AM. She has been up with PT for short distances. Renal function is the main concern at this time. Her pain is adequately controlled with PO meds. No other concerns. Orthopedic Exam Vital signs: Temperature 97.9 F 11/03/17 08:00 Pulse Rate 72 11/03/17 08:00 Respiratory Rate 18 11/03/17 08:00 Blood Pressure 128/54 11/03/17 08:00 Pulse Oximetry 100 11/03/17 08:00 - Constitutional General Appearance: Present: alert, cooperative, no acute distress - Respiratory Exam Present: non-labored - Cardiovascular Exam Present: pedal pulses intact - Extremities Exam Absent: calf tenderness - Dressing Dressing: dry, intact, no drainage - Integumentary Exam Present: pink, warm, dry - Neurological Exam Present: intact to light touch, no deficits - Psychiatric Exam Present: alert, oriented - Labs Result Diagrams: 11/04/17 04:01 11/04/17 04:01 Abnormal lab results 11/04/17 11/04/17 Range/Units 04:01 04:01 Hgb 8.4 L (12-16) GM/DL Hct 28.6 L (36-46) % Potassium 5.1 H (3.6-5) MEQ/L Chloride 111 H (98-107) MEQ/L BUN 35.0 H (7-17) MG/DL Creatinine 2.3 H D (0.7-1.2) mg/dL Calculated Osmolality 281 H (261-280) MOSM/KG Calcium 8.2 L (8.4-10.2) MG/DL H & H 11/02/17 11/03/17 11/04/17 Range/Units : 04:04 04:01 Hgb 11.3 L 9.4 L D 8.4 L (12-16) GM/DL Hct 36.8 31.5 L D 28.6 L (36-46) % Orthopedic Assessment and Plan (1) 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 PT/OT services to improve independent function. Patient may be flat foot toe touch with 25% weight bearing through left leg. Knee immobilizer may be used prn if knee feels unstable to patient. Dr. Lopez managing medically. CKD [employer] >2 from baseline of 1.47. K+ 5.1 . IVF resuscitation continued this morning. Discharge Planning per Case Management. - Anticoagulation Therapy Anticoagulation: Resume home anticoagulant Hospital Course Summary Disclaimer: The visit summary below is not to be considered part of the above Progress Note.
[2017-11-04] MEDS: GABAPENTIN 300 MG CAPSULE PO SCH ×3 (09:12→20:45)
[2017-11-04] MEDS: POLYETHYL GLYCOL 3350 17gm PACKET PO SCH (09:12)
[2017-11-04] MEDS: Desvenlafaxine SR 50 MG TABLET PO SCH (09:12)
[2017-11-04] MEDS: CETIRIZINE 10 MG TABLET PO SCH ×2 (09:13→20:45)
[2017-11-04] MEDS: FUROSEMIDE 40 MG TABLET PO SCH (09:13)
[2017-11-04] MEDS: FERROUS SULFATE 324 MG TABLET PO SCH ×2 (09:13→18:21)
--- NOTE | 2017-11-04 11:06 | Ultrasound Report ---
EXAM: US renal BI DATE: 11/04/2017 8:21 AM ENCOUNTER: Initial INDICATION: renal function COMPARISON: Abdominal CT 07/30/2017, renal ultrasound 07/28/2017 TECHNIQUE: Real-time xavier scale ultrasound images of the kidneys were obtained. FINDINGS: The right kidney measures 11.2 x 4.5 x 4.0 cm. There is no right sided mass, calculus or hydronephrosis. The left kidney measures 12.2 x 4.9 x 3.9 cm. There is no left sided mass, calculus or hydronephrosis. Bilateral cortical thinning suggested. IMPRESSION: Suggestion bilateral renal cortical thinning potentially representing chronic medical renal disease, with no acute abnormality of the kidneys appreciated sonographically. .
[2017-11-04] MEDS ORDERED: BISACODYL 10 MG SUPPOSITORY RECTALLY SCH (20:00)
[2017-11-04] MEDS: SENNOSIDES 8.6 MG TABLET PO SCH (20:45)
[2017-11-04] MEDS: RIVAROXABAN 20 MG TABLET PO SCH (20:45)
[2017-11-04] MEDS: QUETIAPINE 50 MG TABLET PO SCH (20:45)
[2017-11-04] MEDS: ATORVASTATIN 20 MG TABLET PO SCH (20:46)
[2017-11-04] MEDS: INSULIN GLARGINE 100unit/ml INJECTION SQ SCH (20:47)
[2017-11-04] MEDS: INSULIN ASPART 100unit/ml INJECTION SQ PRN (20:47)
[2017-11-04] MEDS: DiphenhydrAMINE 25 MG CAPSULE PO PRN (20:51)
[2017-11-05] MEDS: DICLOXACILLIN 250 MG CAPSULE PO SCH ×2 (06:24→11:37)
[2017-11-05] MEDS: OMEPRAZOLE 20 MG CAPSULE PO SCH (06:24)
[2017-11-05] MEDS: HYDROCODONE/APAP 10 MG/325 MG TABLET PO PRN (06:30)
--- NOTE | 2017-11-05 06:50 | Discharge Summary ---
Providers Date of admission: 11/02/17 06:49 Primary care physician: Yaakov Boudreaux MD Admitting clinician: Yaakov Boudreaux Attending Physician: Yaakov Boudreaux Consults: 11/02/17 00:01 Physician Consult [CONS] Routine Consulting Provider: Siva Menendez Reason For Exam: orthopedic surgery Ordering Provider has Notified Wire Mesh Gate Assembler: Yes 11/02/17 12:22 Case Management Consult [CONS] Routine Reason For Exam: Discharge Planning DME-Walker [CONS] Routine Height: 5 ft 6 in Weight: 127.7 kg Total Joint Outpatient Therapy [CONS] Routine Comment: Remove dressing in 2 weeks 11/02/17 16:19 Doctor [Physician Consult] [CONS] Routine Consulting Provider: Salena Koenig Reason For Exam: SNF Ordering Provider has Notified Wire Mesh Gate Assembler: Yes 11/04/17 07:43 Physician Consult [CONS] Routine Consulting Provider: Holger Elias Reason For Exam: acute on chronic renal failure Ordering Provider has Notified Wire Mesh Gate Assembler: No Attending physician on discharge: Yaakov Boudreaux Discharging clinician: Yaakov Boudreaux Anticipated date of discharge: 11/05/17 Diagnosis - Discharge Diagnosis (1) 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 She had a normal postoperative course. She was discharged to the surgical unit. She did have some renal decompensation that improved slightly before discharge. She was discharged to [facility] care. - Time Spent with Patient Total time spent providing and/or coordinating discharge services: Exam Vital signs: Temperature 98.1 F 11/05/17 04:00 Pulse Rate 77 11/05/17 04:00 Respiratory Rate 16 11/05/17 04:00 Blood Pressure 145/61 H 11/05/17 04:00 Pulse Oximetry 90 11/05/17 05:10 Narrative: On the date of discharge she denied complaints. - Constitutional no acute distress - Routine HEENT Exam Head: Present: normocephalic - Routine Neck Exam Present: supple - Routine Respiratory Exam Present: CTA bilaterally - Routine Cardiovascular Exam Present: RRR - Routine Abdominal Exam Present: soft, non distended, non tender - Routine Extremities Exam Present: no edema DS: Data Completed studies during hospitalization [Text]: Procedures Drainage of Left Knee Joint, Percutaneous Approach, Diagnostic (07/26/17) Excision of Left Knee Joint, Open Approach (07/26/17) Insertion of Infusion Device into Superior Vena Cava, Percutaneous Approach () Reposition Left Lower Femur with Internal Fixation Device, Open Approach () Transfusion of Nonautologous Red Blood Cells into Peripheral Artery, Percutaneous Approach (07/26/17) Transfusion of Nonautologous Red Blood Cells into Peripheral Vein, Percutaneous Approach (05/25/17) Labs on day of discharge: Labs from last 24 hours 11/05/17 11/05/17 11/05/17 05:57 04:01 04:01 WBC 8.7 RBC 3.16 L Hgb 8.7 L Hct 29.2 L MCV 92.4 MCH 27.5 MCHC 29.8 L RDW Std Deviation 50.0 Plt Count 138 MPV 11.4 Neutrophils % (Manual) 73.0 H Lymphocytes % (Manual) 14.0 L Monocytes % (Manual) 10.0 H Eosinophils % (Manual) 3.0 Neutrophils # (Manual) 6.4 Lymphocytes # (Manual) 1.2 Monocytes # (Manual) 0.9 H Eosinophils # (Manual) 0.3 Anisocytosis 1+ RBC Morph Comment Abnormal Turbidity < 20 Sodium 142 Potassium 4.7 Chloride 109 H Carbon Dioxide 24 Anion Gap 9 BUN 34.0 H Creatinine 2.0 H D Estimated Creat Clear 36 GFR Calculation 25 BUN/Creatinine Ratio 17 Glucose 93 Glucometer 96 Calculated Osmolality 281 H Calcium 8.8 Icterus Index < 2 Specimen Hemolysis < 15 Ur Collection Type Urine Color Urine Clarity Urine pH Ur Specific [place] Urine Protein Urine Glucose (UA) Urine Ketones Urine Occult Blood Urine Nitrate Urine Bilirubin Urine Urobilinogen Ur Leukocyte Esterase Urine RBC Urine WBC Ur Squamous Epith Cells Urine Bacteria Ur Culture Indicated? Urine Eosinophils 11/04/17 11/04/17 11/04/17 19:54 15:08 11:02 WBC RBC Hgb Hct MCV MCH MCHC RDW Std Deviation Plt Count MPV Neutrophils % (Manual) Lymphocytes % (Manual) Monocytes % (Manual) Eosinophils % (Manual) Neutrophils # (Manual) Lymphocytes # (Manual) Monocytes # (Manual) Eosinophils # (Manual) Anisocytosis RBC Morph Comment Turbidity Sodium Potassium Chloride Carbon Dioxide Anion Gap BUN Creatinine Estimated Creat Clear GFR Calculation BUN/Creatinine Ratio Glucose Glucometer 186 166 190 Calculated Osmolality Calcium Icterus Index Specimen Hemolysis Ur Collection Type Urine Color Urine Clarity Urine pH Ur Specific [place] Urine Protein Urine Glucose (UA) Urine Ketones Urine Occult Blood Urine Nitrate Urine Bilirubin Urine Urobilinogen Ur Leukocyte Esterase Urine RBC Urine WBC Ur Squamous Epith Cells Urine Bacteria Ur Culture Indicated? Urine Eosinophils 11/04/17 11/04/17 11/04/17 10:16 10:16 05:59 WBC RBC Hgb Hct MCV MCH MCHC RDW Std Deviation Plt Count MPV Neutrophils % (Manual) Lymphocytes % (Manual) Monocytes % (Manual) Eosinophils % (Manual) Neutrophils # (Manual) Lymphocytes # (Manual) Monocytes # (Manual) Eosinophils # (Manual) Anisocytosis RBC Morph Comment Turbidity Sodium Potassium Chloride Carbon Dioxide Anion Gap BUN Creatinine Estimated Creat Clear GFR Calculation BUN/Creatinine Ratio Glucose Glucometer 103 Calculated Osmolality Calcium Icterus Index Specimen Hemolysis Ur Collection Type Urine, void-cc/notcc Urine Color Yellow Urine Clarity Clear Urine pH 6.0 Ur Specific [place] 1.010 L Urine Protein 1+ A Urine Glucose (UA) Negative Urine Ketones Negative Urine Occult Blood 3+ A Urine Nitrate Negative Urine Bilirubin Negative Urine Urobilinogen 0.2 Ur Leukocyte Esterase Negative Urine RBC 10-20 H Urine WBC 1-3 Ur Squamous Epith Cells >50 Urine Bacteria Trace H Ur Culture Indicated? Cult not indicated Urine Eosinophils 2 H DS: Plan - Discharge Medications/Orders Prescriptions: New Insulin Aspart [NovoLOG] 2 - 8 unit SQ SS PRN vial PRN Reason: Protocol Continue Atorvastatin [Lipitor] 20 mg PO HS Omeprazole [Prilosec] 20 mg PO DAILY Rivaroxaban [Xarelto] 20 mg PO HS Hydrocodone/APAP 10/325 [[place] 10/325] 1 tab PO QID PRN 28 Days #1 bottle MDD 40 mg PRN Reason: Pain Ergocalciferol (Vit. D2) [Vitamin D-2] 50,000 unit PO MoWeFr@0900 cap Ferrous Sulfate [Feosol] 324 mg PO BIDWM tab Milk of Magnesia [Mom] 30 ml PO DAILY PRN udc PRN Reason: Constipation Quetiapine [Seroquel] 50 mg PO HS tab PEG 3350 17gm PACKET [Miralax] 17 gm PO DAILY Insulin Glargine,Hum.rec.anlog [Lantus] 25 unit SQ HS Metoprolol Succinate (XL) [Toprol Xl] 50 mg PO DAILY Dicloxacillin [Dynapen] 500 mg PO QID Gabapentin 300 mg PO TID Furosemide [Lasix 40 mg Tab] 40 mg PO DAILY tab desvenlafaxine ER 50 mg tablet,extended release 24 hr 50 mg PO DAILY Zyrtec (Cetirizine) 10 mg capsule 10 mg PO BID cap No Action Cyanocobalamin (Vitamin B-12) [Vitamin B-12] 1,000 mcg PO DAILY Allopurinol [Zyloprim] 100 mg PO DAILY Bactroban 2% Cream 1 applicatio TOP PRN Diphenhydramine Cream [Benadryl Extra Strength Cream] 1 applicatio TOP TID PRN tube PRN Reason: Itching Nystatin Powder [Mycostatin] 1 applicatio TP BID bottle Mupirocin Calcium [Bactroban] 1 applicatio TP BID Albuterol/Ipratropium [Duoneb] 3 ml AEROSOL BID PRN PRN Reason: soa CephALEXin [Keflex 500 mg] 500 mg PO TID Insulin Glulisine [Apidra Solostar] 8 unit SQ AC Aluminum Hydroxide 600 mg PO Q4H PRN MDD 4 PRN Reason: epigastric pain - Patient/Caregiver Discharge Instructions Patient Instructions: [facility] Postop Instructions - Follow up Plan Follow up with: Yaakov Boudreaux MD [Primary Care Provider] - 11/02/17 10:00 am Lupe Roque APRN [Advanced Practice Nurse] - 11/17/17 3:15 pm Disposition: 03 To [facility] Not [facility] (SNF)
[2017-11-05] MEDS: POLYETHYL GLYCOL 3350 17gm PACKET PO SCH (08:45)
[2017-11-05] MEDS: Desvenlafaxine SR 50 MG TABLET PO SCH (08:45)
[2017-11-05] MEDS: FUROSEMIDE 40 MG TABLET PO SCH (08:45)
[2017-11-05] MEDS: ERGOCALCIFEROL 50,000 UNIT CAPSULE PO SCH (08:45)
[2017-11-05] MEDS: GABAPENTIN 300 MG CAPSULE PO SCH (08:45)
[2017-11-05] MEDS: FERROUS SULFATE 324 MG TABLET PO SCH (08:45)
[2017-11-05] MEDS: CETIRIZINE 10 MG TABLET PO SCH (08:57)
[2017-11-05 08:58] VITALS: O2SAT 95
--- NOTE | 2017-11-05 09:08 | Orthopedic Progress Note ---
Date: Date: 11/05/17 Time: 903 Subjective/Severity of Illness: Lauren is up in the chair this morning during rounds. She reports pain has been well controlled with left leg. Knee has felt unstable intermittently when working with PT. She denies any CP, SOA, nausea. Orthopedic Exam Vital signs: Temperature 97.9 F 11/03/17 08:00 Pulse Rate 72 11/03/17 08:00 Respiratory Rate 18 11/03/17 08:00 Blood Pressure 128/54 11/03/17 08:00 Pulse Oximetry 100 11/03/17 08:00 - Constitutional General Appearance: Present: alert, cooperative, no acute distress - Respiratory Exam Present: non-labored - Cardiovascular Exam Present: pedal pulses intact - Abdominal Exam Present: soft. Absent: tenderness, distended - Extremities Exam Present: no edema - Dressing Dressing: dry, intact, no drainage Comments: mepilex left lateral knee. megan intact anterior knee. telfa dressing c/d/i left illac crest - Integumentary Exam Present: pink, warm, dry - Neurological Exam Present: intact to light touch, no deficits - Psychiatric Exam Present: alert, oriented - Labs Result Diagrams: 11/05/17 04:01 11/05/17 04:01 Abnormal lab results 11/04/17 11/04/17 11/05/17 Range/Units 10:16 10:16 04:01 RBC 3.16 L (4.00-5.20) M/MM3 Hgb 8.7 L (12-16) GM/DL Hct 29.2 L (36-46) % MCHC 29.8 L (31-37) GM/DL Neutrophils % (Manual) 73.0 H (33-66) % Lymphocytes % (Manual) 14.0 L (23-45) % Monocytes % (Manual) 10.0 H (0-9.0) % Monocytes # (Manual) 0.9 H (0-0.8) T/MM3 Chloride (98-107) MEQ/L BUN (7-17) MG/DL Creatinine (0.7-1.2) mg/dL Calculated Osmolality (261-280) MOSM/KG Ur Specific [place] 1.010 L (1.015-1.025) Urine Protein 1+ A (NEGATIVE) Urine Occult Blood 3+ A (NEGATIVE) Urine RBC 10-20 H (0-3) /HPF Urine Bacteria Trace H (NEGATIVE) Urine Eosinophils 2 H (0-0) % 11/05/17 Range/Units 04:01 RBC (4.00-5.20) M/MM3 Hgb (12-16) GM/DL Hct (36-46) % MCHC (31-37) GM/DL Neutrophils % (Manual) (33-66) % Lymphocytes % (Manual) (23-45) % Monocytes % (Manual) (0-9.0) % Monocytes # (Manual) (0-0.8) T/MM3 Chloride 109 H (98-107) MEQ/L BUN 34.0 H (7-17) MG/DL Creatinine 2.0 H D (0.7-1.2) mg/dL Calculated Osmolality 281 H (261-280) MOSM/KG Ur Specific [place] (1.015-1.025) Urine Protein (NEGATIVE) Urine Occult Blood (NEGATIVE) Urine RBC (0-3) /HPF Urine Bacteria (NEGATIVE) Urine Eosinophils (0-0) % H & H 11/02/17 11/03/17 11/04/17 Range/Units 07:26 04:04 04:01 Hgb 11.3 L 9.4 L D 8.4 L (12-16) GM/DL Hct 36.8 31.5 L D 28.6 L (36-46) % 11/05/17 Range/Units 04:01 Hgb 8.7 L (12-16) GM/DL Hct 29.2 L (36-46) % Orthopedic Assessment and Plan (1) 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 PT/OT services to improve independent function. Patient may be flat foot toe touch with 25% weight bearing through left leg. Knee immobilizer may be used prn if knee feels unstable to patient. Dr. Lopez managing medically. Anticipated discharge to [facility] today. Follow up outpatient with Ortho scheduled Discharge Planning per Case Management. Hospital Course Summary Disclaimer: The visit summary below is not to be considered part of the above Progress Note. Hospital Course: She was admitted on the morning that she had surgery. She had a normal postoperative course. She was discharged to the surgical unit. She did have some renal decompensation that improved slightly before discharge. She was discharged to [facility].
[2017-11-05 11:38] VITALS: BP 149/71; PULSE 95; RESP 16; TEMP 97.4
== END 2017-11-05 12:24 | DRG 481 ==
LOC: NMC.PERIOP 11-02 06:49 → SRG 11-02 12:40
PROVIDERS: ADMIT Family Medicine; ATTEND Family Medicine